=== PATIENT | male | born 1970 | race Caucasian/White ===

== ENCOUNTER 2022-11-29 12:01 | Inpatient (IN) ==
[2022-11-29] MEDS ORDERED: SODIUM CHLORIDE 0.9% 1000ML 1,000 ML IV ONE ×2 (13:18→15:45)
--- NOTE | 2022-11-29 13:34 | Emergency Department Note ---
ED Provider Note History of Present Illness Chief Complaint: GI Assessment Stated Complaint: STOMACH TUBE NOT WORKING Time Seen by Provider: 11/29/22 13:05 Source: patient Mode of arrival: ambulatory Limitations: no limitations This patient is a 52-year-old male with PMHx of esophageal cancer who presents to the emergency department for evaluation of issues with his G tube. The patient had a G tube placed around 10 days ago due to inability to eat. Family states that since then, he has had a large amount of leakage around the tube. They are concerned that he is not getting any nutrition through the tube. They do report that he had a long admission at [place] after the tube was placed because he was so dehydrated and malnourished. Home Medications Medication Instructions Recorded Confirmed Type mupirocin 2 % topical ointment 1 applic topical TID #22 grams 11/28/22 11/29/22 Rx amoxicillin 600 mg-potassium 0 ml PO UD 11/29/22 11/29/22 History clavulanate 42.9 mg/5 mL oral suspension folic acid 1 mg tablet 1 mg PO DAILY 11/29/22 11/29/22 History oxycodone 5 mg/5 mL oral solution 5 mg PO Q4 PRN mod-severe pain 11/29/22 11/29/22 History thiamine HCl (vitamin B1) 100 mg 100 mg PO DAILY 11/29/22 11/29/22 History tablet Allergies Allergy/AdvReac Type Severity Reaction Status Date / Time No Known Drug Allergies Allergy Verified 11/18/22 06:46 Past Med/Surg History Medical History (Updated 12/05/22 @ 22:18 by Elsy Torres PA-C) Alcoholism pt states he currently is drinking 1 beer per week 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 dye colorist 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 History of asthma A CHILD Mass of hypopharynx Oropharyngeal mass SCC (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 Surgical History (Updated 11/30/22 @ 13:23 by Wilbur Kim DO) Gastrostomy tube in place (11/18/22) p Laparoscopic Assiststed Placement(Not Applicable) - Wiblur Kim DO s Gastrostomy Tube(Not Applicable) - Wilbur Kim DO History of laryngoscopy Direct laryngoscopy with biopsy of pharyngeal lesion History of wisdom tooth extraction Family History Mother Hypertension Diabetes Father Cancer Other No family history of adverse response to anesthesia No significant family history Social History Smoking Status: Former smoker Tobacco Type: Cigarettes packs per day: 1; Second Hand Exposure: No; Hx Alcohol Use: No Hx Substance Use: No Preferred Language: Yoruba Communication Ability: Effective Visual Impairment: No Limitations Obstetrics Gyn Required: No Beliefs That Will Affect Care: None marital status: Single Current Living Situation: Family Current Living Situation Comment: WITH MOTHER current occupational status: unemployed How many Children do You have: 0 Other Information That Helps Us Care for You: No Feels Safe at Home: Yes Safety Concerns: Feels Safe At This Time during the past year weight has: decreased > 10 lbs Assistive Devices: None Physical Exam Vital Signs Vital Signs - 24 hr 11/29/22 23:15 11/29/22 23:39 11/30/22 03:11 Temperature 37 C 36.9 C Temperature Source Oral Oral Pulse Rate Pulse Rate [Apical] 89 96 H Respiratory Rate 18 18 Respiratory Depth Normal Blood Pressure [Left Arm] 128/75 130/77 Blood Pressure Mean [Left Arm] 92 94 Blood Pressure Position [Left Arm] Sitting Lying Pulse Oximetry 99 100 Oxygen Delivery Method Room Air Room Air EWS Level of Consciousness - Last Result Spontaneously Alert EWS Temperature - Last Result 37 EWS Respiratory Rate - Last Result 18 EWS Oxygen Saturation - Last Result 99 EWS Oxygen in Use - Last Result No EWS Lactate - Last Result 0.9 EWS Score 0 EWS Clinical Risk Low Risk 11/30/22 03:17 11/30/22 07:13 11/30/22 08:05 Temperature 37.1 C Temperature Source Oral Pulse Rate 81 Pulse Rate [Apical] 95 H Respiratory Rate 20 Respiratory Depth Blood Pressure [Left Arm] 134/79 Blood Pressure Mean [Left Arm] 97 Blood Pressure Position [Left Arm] Pulse Oximetry 97 Oxygen Delivery Method Room Air EWS Level of Consciousness - Last Result Spontaneously Alert EWS Temperature - Last Result 36.9 EWS Respiratory Rate - Last Result 18 EWS Oxygen Saturation - Last Result 100 EWS Oxygen in Use - Last Result No EWS Lactate - Last Result 0.9 EWS Score 1 EWS Clinical Risk Low Risk 11/30/22 08:05 Temperature Temperature Source Pulse Rate Pulse Rate [Apical] Respiratory Rate Respiratory Depth Blood Pressure [Left Arm] Blood Pressure Mean [Left Arm] Blood Pressure Position [Left Arm] Pulse Oximetry Oxygen Delivery Method EWS Level of Consciousness - Last Result Spontaneously Alert EWS Temperature - Last Result 37.1 EWS Respiratory Rate - Last Result 20 EWS Oxygen Saturation - Last Result 97 EWS Oxygen in Use - Last Result No EWS Lactate - Last Result 0.9 EWS Score 1 EWS Clinical Risk Low Risk VITALS: Vitals are noted on the nurse's note and reviewed by myself. GENERAL: This is a 52-year-old male chronically ill and malnourished appearing. SKIN: Erythematous rash present on the abdomen surrounding the G-tube. MOUTH: Mucous membranes dry. HEART: Regular rate and rhythm without murmurs gallops or rubs. LUNGS: Clear to auscultation bilaterally without wheezes, rales or rhonchi. ABDOMEN: G-tube in place over the upper abdomen. There is some leakage of brownish fluid surrounding the tube NEURO: Patient was alert and oriented to person place and time. Course Administered Medications Betamethasone/Clotrimazole (Clotrimazole/Betamethasone Cr 15 Gm Tube) 1 appln EXT DAILY [facility] Stop: 12/30/22 13:44 Last Admin: 12/05/22 08:08 Dose: 1 appln Documented By: Admin: 12/04/22 08:47 Dose: 1 appln Documented By: Admin: 12/03/22 10:26 Dose: 1 appln Documented By: Admin: 12/02/22 08:55 Dose: 1 appln Documented By: Admin: 12/01/22 09:30 Dose: 1 appln Documented By: Admin: 11/30/22 15:22 Dose: 1 appln Documented By: CORNELIUS Enoxaparin Sodium (Enoxaparin Inj 40 Mg/0.4 Ml Syr) 40 mg SQ Q24H [facility] Stop: 12/29/22 20:59 Last Admin: 12/05/22 21:24 Dose: 40 mg Documented By: Admin: 12/04/22 20:08 Dose: 40 mg Documented By: Admin: 12/03/22 21:11 Dose: 40 mg Documented By: Admin: 12/02/22 20:45 Dose: 40 mg Documented By: Admin: 12/01/22 19:46 Dose: 40 mg Documented By: Admin: 11/30/22 21:04 Dose: 40 mg Documented By: Admin: 11/29/22 21:52 Dose: 40 mg Documented By: QG Piperacillin Sod/Tazobactam (Sod 3.375 gm/ Dextrose) 115 mls @ 28.75 mls/hr IV Q8H [facility]; Protocol Stop: 12/09/22 01:59 Last Infusion: 12/05/22 21:20 Dose: 0 mls/hr Documented By: Admin: 12/05/22 18:00 Dose: 28.8 mls/hr Documented By: Infusion: 12/05/22 13:38 Dose: 0 mls/hr Documented By: Admin: 12/05/22 09:36 Dose: 28.8 mls/hr Documented By: Infusion: 12/05/22 06:19 Dose: 0 mls/hr Documented By: [facility] Admin: 12/05/22 02:22 Dose: 28.8 mls/hr Documented By: [facility] Infusion: 12/04/22 21:36 Dose: 0 mls/hr Documented By: [facility] Admin: 12/04/22 17:43 Dose: 28.8 mls/hr Documented By: Infusion: 12/04/22 13:27 Dose: 0 mls/hr Documented By: Admin: 12/04/22 09:17 Dose: 28.8 mls/hr Documented By: Infusion: 12/04/22 06:16 Dose: 0 mls/hr Documented By: Admin: 12/04/22 02:27 Dose: 28.8 mls/hr Documented By: Infusion: 12/03/22 23:12 Dose: 0 mls/hr Documented By: Admin: 12/03/22 19:04 Dose: 28.8 mls/hr Documented By: Infusion: 12/03/22 14:25 Dose: 0 mls/hr Documented By: Admin: 12/03/22 10:25 Dose: 28.8 mls/hr Documented By: Infusion: 12/03/22 05:26 Dose: 0 mls/hr Documented By: Admin: 12/03/22 01:26 Dose: 28.8 mls/hr Documented By: Infusion: 12/02/22 22:23 Dose: 0 mls/hr Documented By: Admin: 12/02/22 18:06 Dose: 28.8 mls/hr Documented By: Infusion: 12/02/22 15:52 Dose: 0 mls/hr Documented By: Admin: 12/02/22 11:14 Dose: 28.8 mls/hr Documented By: Infusion: 12/02/22 03:40 Dose: 0 mls/hr Documented By: Admin: 12/01/22 22:52 Dose: 28.8 mls/hr Documented By: JESÚS Lansoprazole (Lansoprazole 30 Mg Soltab) 30 mg PEG DAILY [facility] Stop: 01/03/23 08:59 Last Admin: 12/05/22 08:08 Dose: 30 mg Documented By: Admin: 12/04/22 08:48 Dose: 30 mg Documented By: ALICIA Lorazepam (Lorazepam 2 Mg/1 Ml Vial) 0.5 mg IV Q6H PRN PRN Reason: Anxiety/Agitation Stop: 01/04/23 15:54 Last Admin: 12/05/22 16:57 Dose: 0.5 mg Documented By: ALICIA Morphine Sulfate (Morphine Sulfate 2 Mg/Ml Carp) 1 mg IV Q4H PRN PRN Reason: moderate to severe pain Stop: 12/13/22 20:32 Last Admin: 12/05/22 12:22 Dose: 1 mg Documented By: Admin: 12/05/22 08:22 Dose: 1 mg Documented By: Admin: 12/03/22 21:17 Dose: 1 mg Documented By: Admin: 12/03/22 05:26 Dose: 1 mg Documented By: Admin: 12/03/22 01:31 Dose: 1 mg Documented By: Admin: 12/01/22 22:46 Dose: 1 mg Documented By: Admin: 12/01/22 17:20 Dose: 1 mg Documented By: Admin: 12/01/22 06:25 Dose: 1 mg Documented By: Admin: 11/30/22 21:04 Dose: 1 mg Documented By: Admin: 11/30/22 15:30 Dose: 1 mg Documented By: Admin: 11/30/22 11:33 Dose: 1 mg Documented By: CORNELIUS Nutritional Formula (Nutren Liqd 2.0 1,000 Ml Bag) 1,000 ml PEG 080 0,1200,1600,2000 [facility]; Protocol Stop: 12/30/22 16:59 Last Admin: 12/05/22 20:16 Dose: 1,000 ml Documented By: Admin: 12/05/22 16:11 Dose: 1,000 ml Documented By: Admin: 12/05/22 12:50 Dose: 1,000 ml Documented By: Admin: 12/05/22 08:07 Dose: 1,000 ml Documented By: Admin: 12/04/22 20:09 Dose: 1,000 ml Documented By: Admin: 12/04/22 16:35 Dose: 1,000 ml Documented By: Admin: 12/04/22 12:34 Dose: 1,000 ml Documented By: KGTrina Admin: 12/04/22 08:47 Dose: 1,000 ml Documented By: Admin: 12/03/22 21:11 Dose: 1,000 ml Documented By: Admin: 12/03/22 17:04 Dose: 1,000 ml Documented By: Admin: 12/03/22 13:03 Dose: 1,000 ml Documented By: Admin: 12/03/22 08:28 Dose: 1,000 ml Documented By: Admin: 12/02/22 21:24 Dose: 1,000 ml Documented By: Admin: 12/02/22 16:30 Dose: 1,000 ml Documented By: Admin: 12/02/22 12:39 Dose: 1,000 ml Documented By: Admin: 12/02/22 07:49 Dose: 1,000 ml Documented By: Admin: 12/01/22 19:45 Dose: 1,000 ml Documented By: Admin: 12/01/22 16:07 Dose: 1,000 ml Documented By: Admin: 12/01/22 12:43 Dose: 1,000 ml Documented By: Admin: 12/01/22 09:30 Dose: 1,000 ml Documented By: Admin: 11/30/22 20:00 Dose: 1,000 ml Documented By: Admin: 11/30/22 17:34 Dose: 1,000 ml Documented By: CORNELIUS Potassium Chloride (Potassium Chloride 20 Meq/15 Ml Udc) 40 meq PO BID [facility] Stop: 01/02/23 20:59 Last Admin: 12/05/22 21:28 Dose: 40 meq Documented By: Admin: 12/05/22 08:08 Dose: 40 meq Documented By: Admin: 12/04/22 20:08 Dose: 40 meq Documented By: Admin: 12/04/22 08:48 Dose: 40 meq Documented By: Admin: 12/03/22 21:10 Dose: Not Given Documented By: [facility] Sterile Water (Tube Feeding Water Flush) 100 ml PEG Q4H [facility] Stop: 12/30/22 16:59 Last Admin: 12/05/22 21:23 Dose: 100 ml Documented By: Admin: 12/05/22 16:12 Dose: 100 ml Documented By: Admin: 12/05/22 13:02 Dose: 100 ml Documented By: Admin: 12/05/22 08:08 Dose: 100 ml Documented By: Admin: 12/05/22 05:35 Dose: 100 ml Documented By: [facility] Admin: 12/05/22 01:33 Dose: 100 ml Documented By: [facility] Admin: 12/04/22 21:14 Dose: 100 ml Documented By: Admin: 12/04/22 16:35 Dose: 100 ml Documented By: Admin: 12/04/22 12:35 Dose: 100 ml Documented By: Admin: 12/04/22 08:48 Dose: 100 ml Documented By: Admin: 12/04/22 03:51 Dose: 100 ml Documented By: Admin: 12/04/22 00:23 Dose: 100 ml Documented By: Admin: 12/03/22 22:10 Dose: 100 ml Documented By: Admin: 12/03/22 17:05 Dose: 100 ml Documented By: Admin: 12/03/22 13:04 Dose: 100 ml Documented By: Admin: 12/03/22 08:28 Dose: 100 ml Documented By: Admin: 12/03/22 04:44 Dose: 100 ml Documented By: Admin: 12/03/22 02:06 Dose: 100 ml Documented By: Admin: 12/02/22 22:04 Dose: 100 ml Documented By: [facility] Admin: 12/02/22 17:30 Dose: 100 ml Documented By: Admin: 12/02/22 14:19 Dose: 100 ml Documented By: Admin: 12/02/22 08:55 Dose: 100 ml Documented By: Admin: 12/02/22 04:38 Dose: 100 ml Documented By: Admin: 12/02/22 00:43 Dose: 100 ml Documented By: Admin: 12/01/22 19:46 Dose: 100 ml Documented By: Admin: 12/01/22 17:17 Dose: 100 ml Documented By: Admin: 12/01/22 14:00 Dose: 100 ml Documented By: Admin: 12/01/22 09:32 Dose: 100 ml Documented By: Admin: 12/01/22 06:25 Dose: 100 ml Documented By: Admin: 12/01/22 01:00 Dose: 100 ml Documented By: Admin: 11/30/22 21:03 Dose: 100 ml Documented By: Admin: 11/30/22 17:34 Dose: 100 ml Documented By: CORNELIUS Thiamine HCl (Thiamine Hcl 100 Mg Tab) 100 mg PO DAILY [facility] Stop: 01/03/23 08:59 Last Admin: 12/05/22 08:08 Dose: 100 mg Documented By: Admin: 12/04/22 08:48 Dose: 100 mg Documented By: ALICIA Discontinued Medications Amiloride HCl (Amiloride Hcl 5 Mg Tab) 5 mg PO DAILY [facility] Stop: 01/04/23 08:59 Last Admin: 12/05/22 09:32 Dose: 5 mg Documented By: ALICIA Sodium Chloride (Nss 1000ml) 1,000 mls @ 999 mls/hr IV .Q1H1M ONE Stop: 11/29/22 14:18 Last Infusion: 11/29/22 15:02 Dose: 0 mls/hr Documented By: Admin: 11/29/22 14:01 Dose: 999 mls/hr Documented By: GERALDINE Sodium Chloride (Nss 1000ml) 1,000 mls @ 999 mls/hr IV .Q1H1M ONE Stop: 11/29/22 16:45 Last Infusion: 11/29/22 17:17 Dose: 0 mls/hr Documented By: Admin: 11/29/22 16:04 Dose: 999 mls/hr Documented By: OL Potassium Chloride (K Arvind / Wtr) 10 meq in 100 mls @ 100 mls/hr IV ONE ONE; Protocol Stop: 11/29/22 16:44 Last Infusion: 11/29/22 17:37 Dose: 0 mls/hr Documented By: Infusion: 11/29/22 16:33 Dose: 50 mls/hr Documented By: Admin: 11/29/22 16:04 Dose: 100 mls/hr Documented By: OL Potassium Chloride/Sodium Chloride (Normal Saline W/20 Meq Kcl) 20 meq in 1,000 mls @ 75 mls/hr IV .[id number] [facility] Stop: 12/29/22 20:59 Last Infusion: 12/02/22 22:30 Dose: 0 mls/hr Documented By: Admin: 12/01/22 22:49 Dose: 75 mls/hr Documented By: Infusion: 12/01/22 22:49 Dose: 75 mls/hr Documented By: Admin: 12/01/22 15:26 Dose: 75 mls/hr Documented By: Infusion: 12/01/22 15:26 Dose: 75 mls/hr Documented By: Admin: 12/01/22 04:01 Dose: 75 mls/hr Documented By: Infusion: 12/01/22 04:01 Dose: 75 mls/hr Documented By: Admin: 11/30/22 21:01 Dose: 75 mls/hr Documented By: Infusion: 11/30/22 21:01 Dose: 0 mls/hr Documented By: Infusion: 11/30/22 10:00 Dose: 0 mls/hr Documented By: Admin: 11/29/22 21:48 Dose: 75 mls/hr Documented By: QG Acetaminophen (Ofirmev) 1,000 mg in 100 mls @ 400 mls/hr IV Q8H PRN PRN Reason: pain or fever Stop: 12/02/22 20:32 Last Infusion: 12/01/22 10:20 Dose: 0 mls/hr Documented By: Admin: 12/01/22 10:01 Dose: 400 mls/hr Documented By: BT Thiamine HCl 100 mg/ Syringe 10 mls @ 2 mls/min IV QAM [facility] Stop: 12/30/22 08:59 Last Admin: 12/03/22 08:27 Dose: 2 mls/min Documented By: Admin: 12/02/22 08:55 Dose: 2 mls/min Documented By: Admin: 12/01/22 09:30 Dose: 2 mls/min Documented By: Admin: 11/30/22 08:45 Dose: 2 mls/min Documented By: CORNELIUS Pantoprazole Sodium 40 mg/ (Syringe) 10 mls @ 5 mls/min IV DAILY@1100 [facility] Stop: 12/29/22 20:59 Last Admin: 12/03/22 11:00 Dose: 5 mls/min Documented By: Admin: 12/02/22 11:14 Dose: 5 mls/min Documented By: Admin: 12/01/22 10:02 Dose: 5 mls/min Documented By: Admin: 11/30/22 11:35 Dose: 5 mls/min Documented By: Admin: 11/29/22 21:51 Dose: 5 mls/min Documented By: QG Potassium Acetate (Potassium Acetate/Nss) 10 meq in 105 mls @ 105 mls/hr IV Q1H [facility] Stop: 11/30/22 08:41 Last Admin: 11/30/22 07:49 Dose: Not Given Documented By: CORNELIUS Potassium Chloride (K Arvind / Wtr) 10 meq in 100 mls @ 100 mls/hr IV Q1H [facility] Stop: 11/30/22 12:44 Last Infusion: 11/30/22 17:02 Dose: 0 mls/hr Documented By: Admin: 11/30/22 15:47 Dose: 100 mls/hr Documented By: Infusion: 11/30/22 15:00 Dose: 100 mls/hr Documented By: Admin: 11/30/22 14:00 Dose: 100 mls/hr Documented By: Infusion: 11/30/22 12:35 Dose: 100 mls/hr Documented By: Admin: 11/30/22 11:35 Dose: 100 mls/hr Documented By: Infusion: 11/30/22 11:02 Dose: 100 mls/hr Documented By: Admin: 11/30/22 10:02 Dose: 100 mls/hr Documented By: CORNELIUS Potassium Phosphate 15 mmol/ (Sodium Chloride) 255 mls @ 88 mls/hr IV TODA Y@1315 ONE Stop: 11/30/22 16:08 Last Infusion: 11/30/22 20:25 Dose: 0 mls/hr Documented By: Admin: 11/30/22 17:02 Dose: 88 mls/hr Documented By: CORNELIUS Piperacillin Sod/Tazobactam (Sod 3.375 gm/ Dextrose) 115 mls @ 230 mls/hr IV NOW ONE; Protocol Stop: 12/01/22 21:29 Last Infusion: 12/02/22 00:50 Dose: 0 mls/hr Documented By: Admin: 12/01/22 22:46 Dose: 230 mls/hr Documented By: JESÚS Potassium Phosphate 21 mmol/ (Sodium Chloride) 507 mls @ 112.667 mls/hr IV NOW ONE Stop: 12/02/22 12:29 Last Infusion: 12/02/22 14:27 Dose: 0 mls/hr Documented By: Admin: 12/02/22 08:54 Dose: 112.7 mls/hr Documented By: LEOPOLDO Magnesium Sulfate/Dextrose (Magnesium Sulfate / D5w) 1 gm in 100 mls @ 50 mls/hr IV Q2H [facility] Stop: 12/03/22 15:14 Last Infusion: 12/03/22 16:35 Dose: 0 mls/hr Documented By: Admin: 12/03/22 14:35 Dose: 50 mls/hr Documented By: Infusion: 12/03/22 14:30 Dose: 0 mls/hr Documented By: Admin: 12/03/22 12:30 Dose: 50 mls/hr Documented By: Infusion: 12/03/22 12:25 Dose: 0 mls/hr Documented By: Admin: 12/03/22 10:25 Dose: 50 mls/hr Documented By: ZACK Magnesium Sulfate/Dextrose (Magnesium Sulfate / D5w) 1 gm in 100 mls @ 50 mls/hr IV Q2H [facility] Stop: 12/03/22 22:29 Last Infusion: 12/04/22 02:23 Dose: 0 mls/hr Documented By: Admin: 12/04/22 00:22 Dose: 50 mls/hr Documented By: Infusion: 12/04/22 00:22 Dose: 50 mls/hr Documented By: Admin: 12/03/22 23:00 Dose: 50 mls/hr Documented By: LJS Potassium Phosphate 15 mmol/ (Dextrose) 255 mls @ 88 mls/hr IV NOW ONE Stop: 12/03/22 21:38 Last Infusion: 12/04/22 00:23 Dose: 0 mls/hr Documented By: Admin: 12/03/22 21:04 Dose: 88 mls/hr Documented By: ACE Potassium Chloride (K Arvind / Wtr) 10 meq in 100 mls @ 100 mls/hr IV Q1H [facility] Stop: 12/04/22 12:59 Last Infusion: 12/04/22 14:07 Dose: 0 mls/hr Documented By: Admin: 12/04/22 13:01 Dose: 100 mls/hr Documented By: Infusion: 12/04/22 13:01 Dose: 100 mls/hr Documented By: Admin: 12/04/22 12:07 Dose: 100 mls/hr Documented By: Infusion: 12/04/22 11:45 Dose: 100 mls/hr Documented By: Admin: 12/04/22 10:45 Dose: 100 mls/hr Documented By: Infusion: 12/04/22 10:17 Dose: 100 mls/hr Documented By: Admin: 12/04/22 09:17 Dose: 100 mls/hr Documented By: ALICIA Magnesium Sulfate/Dextrose (Magnesium Sulfate / D5w) 1 gm in 100 mls @ 50 mls/hr IV Q2H [facility] Stop: 12/05/22 14:44 Last Infusion: 12/05/22 15:43 Dose: 0 mls/hr Documented By: Admin: 12/05/22 13:42 Dose: 50 mls/hr Documented By: Infusion: 12/05/22 13:39 Dose: 50 mls/hr Documented By: Admin: 12/05/22 11:39 Dose: 50 mls/hr Documented By: Infusion: 12/05/22 11:36 Dose: 50 mls/hr Documented By: Admin: 12/05/22 09:36 Dose: 50 mls/hr Documented By: ALICIA Potassium Chloride (K Arvind / Wtr) 10 meq in 100 mls @ 100 mls/hr IV Q1H [facility] Stop: 12/05/22 11:44 Last Infusion: 12/05/22 13:05 Dose: 0 mls/hr Documented By: Admin: 12/05/22 12:05 Dose: 100 mls/hr Documented By: Infusion: 12/05/22 11:47 Dose: 100 mls/hr Documented By: Admin: 12/05/22 10:47 Dose: 100 mls/hr Documented By: Infusion: 12/05/22 10:36 Dose: 100 mls/hr Documented By: Admin: 12/05/22 09:36 Dose: 100 mls/hr Documented By: ALICIA Dexamethasone 6 mg/ Syringe 1.5 mls @ 1 mls/min IV ONE ONE Stop: 12/05/22 18:16 Last Admin: 12/05/22 18:31 Dose: 1 mls/min Documented By: ALICIA Ioversol (Optiray 350 100ml) 84 ml IV ONCE ONE Stop: 11/29/22 23:07 Last Admin: 11/29/22 23:07 Dose: 84 ml Documented By: GRACIELA Ioversol (Optiray 350 100ml) 94 ml IV ONCE ONE Stop: 12/01/22 09:18 Last Admin: 12/01/22 09:18 Dose: 94 ml Documented By: NOE Ioversol (Optiray 350 100ml) 87 ml IV ONCE ONE Stop: 12/05/22 17:38 Last Admin: 12/05/22 17:38 Dose: 87 ml Documented By: KATTY Miconazole Nitrate (Miconazole Nitrate Powder 85 Gm) 1 appln EXT BID [facility] Stop: 12/29/22 20:59 Last Admin: 11/30/22 08:45 Dose: 1 appln Documented By: Admin: 11/29/22 21:52 Dose: 1 appln Documented By: QG Olanzapine (Olanzapine Zydis 5 Mg Orally Dis. Tab) 5 mg PO ONE ONE Stop: 12/05/22 15:58 Last Admin: 12/05/22 16:12 Dose: 5 mg Documented By: ALICIA Potassium Chloride (Potassium Chloride 20 Meq/15 Ml Udc) 40 meq GT NOW STA Stop: 11/29/22 15:46 Last Admin: 11/29/22 17:21 Dose: Not Given Documented By: OL Potassium Chloride (Potassium Chloride 20 Meq/15 Ml Udc) 40 meq PO NOW ST[facility] Stop: 12/03/22 18:30 Last Admin: 12/03/22 21:10 Dose: Not Given Documented By: ACE Medical Decision Making Differential Diagnosis Infection, dehydration, metabolic abnormality, hypo/hyperglycemia, electrolyte disturbance, anemia, hypoxia, cardiac sources, intracerebral event, toxicologic, neurologic, as well as other pathologies. Home Medications was personally reviewed by me Laboratory Data Attestation: I reviewed the patient's lab results. 11/30/22 05:36 11/30/22 05:36 Lab Results 11/29/22 11/29/22 11/29/22 Range/Units 13:42 13:42 16:34 WBC 15.74 H (4.8-10.8) K/ul RBC 3.21 L (4.70-6.10) M/uL Hgb 10.3 L (14.0-18.0) g/dl Hct 29.9 L (42.0-52.0) % MCV 93.1 (80.0-100.0) fL MCH 32.1 (25.0-34.0) pg MCHC 34.4 (32.0-36.0) g/dL RDW Std Deviation 45.6 (36.4-46.3) fL RDW Coeff of Cony 13.4 (11.5-14.5) % Plt Count 509 H (130-400) K/uL MPV 9.9 (9.4-12.4) fL Immature Gran % (Auto) 0.6 % Neut % (Auto) 79.7 % Lymph % (Auto) 7.7 % Wharton % (Auto) 11.4 % Eos % (Auto) 0.3 % Baso % (Auto) 0.3 % Neut # (Auto) 12.54 H (1.40-6.50) K/uL Lymph # (Auto) 1.21 (1.2-3.4) K/uL Wharton # (Auto) 1.80 H (0.11-0.59) K/uL Eos # (Auto) 0.04 (0-0.50) K/uL Baso # (Auto) 0.05 (0-0.2) K/uL Immature Gran # (Auto) 0.10 (0.01-0.20) K/uL Sodium 138 (136-145) mmol/L Potassium 2.9 L (3.5-5.1) mmol/L Chloride 95 L (98-107) mmol/L Carbon Dioxide 32 (21-32) mmol/L Anion Gap 11 (3-11) BUN 10 (6-23) mg/dl Creatinine 0.52 L (0.6-1.4) mg/dl Est Cr Clr Drug Dosing 138.3 ml/min Est GFR ( Amer) 140.1 ml/min Est GFR (Non-Af Amer) 120.9 ml/min BUN/Creatinine Ratio 19.2 (10-20) Glucose 111 H (70-99(Fasting)) mg/dl Lactate (0.4-2.0) mmol/L Calcium 10.2 (8.6-10.3) mg/dl Phosphorus 2.7 Cancelled (2.5-4.9) mg/dl Magnesium 1.8 (1.7-2.4) mg/dl Iron (35-175) mcg/dl TIBC (250-450) mcg/dl Unsaturated IBC (155-355) mcg/dl Transferrin % Sat (20-50) % Ferritin (8-388) ng/ml Total Bilirubin 0.7 (0.2-1.0) mg/dl AST 19 (13-39) U/L ALT 11 (7-52) U/L Alkaline Phosphatase 50 (34-104) U/L Total Creatine Kinase (30-223) U/L Total Protein 6.8 (6.0-8.3) gm/dl Albumin 3.3 L (3.4-5.0) gm/dl Globulin 3.5 (2.5-4.0) gm/dl Albumin/Globulin Ratio 0.9 (0.9-2) Vitamin B12 (180-914) pg/ml 25-OH Vitamin D Total (30-100) ng/ml Folate (>5.38) ng/ml Procalcitonin (0-0.5) ng/ml Urine Color Urine Appearance (Clear) Urine pH (4.5-7.5) Ur Specific [place] (1.000-1.030) Urine Protein (Negative) Urine Glucose (UA) (Negative) Urine Ketones (Negative) Urine Blood (Negative) Urine Nitrite (Negative) Urine Bilirubin (Negative) Urine Urobilinogen (Negative) Ur Leukocyte Esterase (Negative) Urine RBC (0-4) /hpf Urine WBC (0-5) /hpf Ur Epithelial Cells (0-5) /lpf Urine Bacteria (Negative) Hyaline Casts (0-5) /lpf SARS-CoV-2, RNA, NAAT (NEGATIVE) 11/29/22 11/29/22 11/29/22 Range/Units 16:50 17:08 17:08 WBC (4.8-10.8) K/ul RBC (4.70-6.10) M/uL Hgb (14.0-18.0) g/dl Hct (42.0-52.0) % MCV (80.0-100.0) fL MCH (25.0-34.0) pg MCHC (32.0-36.0) g/dL RDW Std Deviation (36.4-46.3) fL RDW Coeff of [place] (11.5-14.5) % Plt Count (130-400) K/uL MPV (9.4-12.4) fL Immature Gran % (Auto) % Neut % (Auto) % Lymph % (Auto) % [place] % (Auto) % Eos % (Auto) % Baso % (Auto) % Neut # (Auto) (1.40-6.50) K/uL Lymph # (Auto) (1.2-3.4) K/uL [place] # (Auto) (0.11-0.59) K/uL Eos # (Auto) (0-0.50) K/uL Baso # (Auto) (0-0.2) K/uL Immature Gran # (Auto) (0.01-0.20) K/uL Sodium (136-145) mmol/L Potassium (3.5-5.1) mmol/L Chloride (98-107) mmol/L Carbon Dioxide (21-32) mmol/L Anion Gap (3-11) BUN (6-23) mg/dl Creatinine (0.6-1.4) mg/dl Est Cr Clr Drug Dosing ml/min Est GFR ( Amer) ml/min Est GFR (Non-Af Amer) ml/min BUN/Creatinine Ratio (10-20) Glucose (70-99(Fasting)) mg/dl Lactate (0.4-2.0) mmol/L Calcium (8.6-10.3) mg/dl Phosphorus (2.5-4.9) mg/dl Magnesium (1.7-2.4) mg/dl Iron (35-175) mcg/dl TIBC (250-450) mcg/dl Unsaturated IBC (155-355) mcg/dl Transferrin % Sat (20-50) % Ferritin (8-388) ng/ml Total Bilirubin (0.2-1.0) mg/dl AST (13-39) U/L ALT (7-52) U/L Alkaline Phosphatase (34-104) U/L Total Creatine Kinase (30-223) U/L Total Protein (6.0-8.3) gm/dl Albumin (3.4-5.0) gm/dl Globulin (2.5-4.0) gm/dl Albumin/Globulin Ratio (0.9-2) Vitamin B12 (180-914) pg/ml 25-OH Vitamin D Total 11.5 L (30-100) ng/ml Folate (>5.38) ng/ml Procalcitonin 1.03 H (0-0.5) ng/ml Urine Color Urine Appearance (Clear) Urine pH (4.5-7.5) Ur Specific [place] (1.000-1.030) Urine Protein (Negative) Urine Glucose (UA) (Negative) Urine Ketones (Negative) Urine Blood (Negative) Urine Nitrite (Negative) Urine Bilirubin (Negative) Urine Urobilinogen (Negative) Ur Leukocyte Esterase (Negative) Urine RBC (0-4) /hpf Urine WBC (0-5) /hpf Ur Epithelial Cells (0-5) /lpf Urine Bacteria (Negative) Hyaline Casts (0-5) /lpf SARS-CoV-2, RNA, NAAT NEGATIVE (NEGATIVE) 11/29/22 11/29/22 11/30/22 Range/Units 18:39 18:39 02:13 WBC (4.8-10.8) K/ul RBC (4.70-6.10) M/uL Hgb (14.0-18.0) g/dl Hct (42.0-52.0) % MCV (80.0-100.0) fL MCH (25.0-34.0) pg MCHC (32.0-36.0) g/dL RDW Std Deviation (36.4-46.3) fL RDW Coeff of Cony (11.5-14.5) % Plt Count (130-400) K/uL MPV (9.4-12.4) fL Immature Gran % (Auto) % Neut % (Auto) % Lymph % (Auto) % [place] % (Auto) % Eos % (Auto) % Baso % (Auto) % Neut # (Auto) (1.40-6.50) K/uL Lymph # (Auto) (1.2-3.4) K/uL [place] # (Auto) (0.11-0.59) K/uL Eos # (Auto) (0-0.50) K/uL Baso # (Auto) (0-0.2) K/uL Immature Gran # (Auto) (0.01-0.20) K/uL Sodium (136-145) mmol/L Potassium (3.5-5.1) mmol/L Chloride (98-107) mmol/L Carbon Dioxide (21-32) mmol/L Anion Gap (3-11) BUN (6-23) mg/dl Creatinine (0.6-1.4) mg/dl Est Cr Clr Drug Dosing ml/min Est GFR ( Amer) ml/min Est GFR (Non-Af Amer) ml/min BUN/Creatinine Ratio (10-20) Glucose (70-99(Fasting)) mg/dl Lactate 0.9 (0.4-2.0) mmol/L Calcium (8.6-10.3) mg/dl Phosphorus (2.5-4.9) mg/dl Magnesium (1.7-2.4) mg/dl Iron (35-175) mcg/dl TIBC (250-450) mcg/dl Unsaturated IBC (155-355) mcg/dl Transferrin % Sat (20-50) % Ferritin (8-388) ng/ml Total Bilirubin (0.2-1.0) mg/dl AST (13-39) U/L ALT (7-52) U/L Alkaline Phosphatase (34-104) U/L Total Creatine Kinase 11 L (30-223) U/L Total Protein (6.0-8.3) gm/dl Albumin (3.4-5.0) gm/dl Globulin (2.5-4.0) gm/dl Albumin/Globulin Ratio (0.9-2) Vitamin B12 (180-914) pg/ml 25-OH Vitamin D Total (30-100) ng/ml Folate (>5.38) ng/ml Procalcitonin (0-0.5) ng/ml Urine Color Yellow Urine Appearance Cloudy A (Clear) Urine pH 7.5 (4.5-7.5) Ur Specific [place] 1.015 (1.000-1.030) Urine Protein 3+ H (Negative) Urine Glucose (UA) Negative (Negative) Urine Ketones 3+ H (Negative) Urine Blood 3+ H (Negative) Urine Nitrite Negative (Negative) Urine Bilirubin Negative (Negative) Urine Urobilinogen Negative (Negative) Ur Leukocyte Esterase 3+ H (Negative) Urine RBC 10-30 H (0-4) /hpf Urine WBC >30 H (0-5) /hpf Ur Epithelial Cells 5-10 H (0-5) /lpf Urine Bacteria 2+ H (Negative) Hyaline Casts 0-5 (0-5) /lpf SARS-CoV-2, RNA, NAAT (NEGATIVE) 11/30/22 11/30/22 11/30/22 Range/Units 05:36 05:36 05:36 WBC 12.30 H (4.8-10.8) K/ul RBC 2.79 L (4.70-6.10) M/uL Hgb 9.0 L (14.0-18.0) g/dl Hct 26.6 L (42.0-52.0) % MCV 95.3 (80.0-100.0) fL MCH 32.3 (25.0-34.0) pg MCHC 33.8 (32.0-36.0) g/dL RDW Std Deviation 46.4 H (36.4-46.3) fL RDW Coeff of Cony 13.4 (11.5-14.5) % Plt Count 484 H (130-400) K/uL MPV 9.3 L (9.4-12.4) fL Immature Gran % (Auto) 0.6 % Neut % (Auto) 80.7 % Lymph % (Auto) 8.2 % [place] % (Auto) 9.5 % Eos % (Auto) 0.7 % Baso % (Auto) 0.3 % Neut # (Auto) 9.93 H (1.40-6.50) K/uL Lymph # (Auto) 1.01 L (1.2-3.4) K/uL [place] # (Auto) 1.17 H (0.11-0.59) K/uL Eos # (Auto) 0.08 (0-0.50) K/uL Baso # (Auto) 0.04 (0-0.2) K/uL Immature Gran # (Auto) 0.07 (0.01-0.20) K/uL Sodium 141 (136-145) mmol/L Potassium 2.9 L (3.5-5.1) mmol/L Chloride 102 (98-107) mmol/L Carbon Dioxide 30 (21-32) mmol/L Anion Gap 9 (3-11) BUN 8 (6-23) mg/dl Creatinine 0.45 L (0.6-1.4) mg/dl Est Cr Clr Drug Dosing 156.3 ml/min Est GFR ( Amer) 148.7 ml/min Est GFR (Non-Af Amer) 128.3 ml/min BUN/Creatinine Ratio 17.8 (10-20) Glucose 95 (70-99(Fasting)) mg/dl Lactate (0.4-2.0) mmol/L Calcium 9.7 (8.6-10.3) mg/dl Phosphorus 2.4 L (2.5-4.9) mg/dl Magnesium 1.7 (1.7-2.4) mg/dl Iron 25 L (35-175) mcg/dl TIBC 184 L (250-450) mcg/dl Unsaturated IBC 159 (155-355) mcg/dl Transferrin % Sat 14 L (20-50) % Ferritin 1255.2 H (8-388) ng/ml Total Bilirubin 0.6 (0.2-1.0) mg/dl AST 19 (13-39) U/L ALT 10 (7-52) U/L Alkaline Phosphatase 40 (34-104) U/L Total Creatine Kinase (30-223) U/L Total Protein 5.9 L (6.0-8.3) gm/dl Albumin 2.8 L (3.4-5.0) gm/dl Globulin 3.1 (2.5-4.0) gm/dl Albumin/Globulin Ratio 0.9 (0.9-2) Vitamin B12 348 (180-914) pg/ml 25-OH Vitamin D Total (30-100) ng/ml Folate 15.00 (>5.38) ng/ml Procalcitonin (0-0.5) ng/ml Urine Color Urine Appearance (Clear) Urine pH (4.5-7.5) Ur Specific [place] (1.000-1.030) Urine Protein (Negative) Urine Glucose (UA) (Negative) Urine Ketones (Negative) Urine Blood (Negative) Urine Nitrite (Negative) Urine Bilirubin (Negative) Urine Urobilinogen (Negative) Ur Leukocyte Esterase (Negative) Urine RBC (0-4) /hpf Urine WBC (0-5) /hpf Ur Epithelial Cells (0-5) /lpf Urine Bacteria (Negative) Hyaline Casts (0-5) /lpf SARS-CoV-2, RNA, NAAT (NEGATIVE) MDM Narrative This patient is a 52-year-old male who presents to the emergency department for evaluation of problems with his J-tube. I initially consulted general surgery who were able to evaluate the J-tube and tightened it to prevent leaking. Labs were performed and were significant for hypokalemia. Potassium supplementation was ordered, however when I reevaluated the patient they were having further issues with the J-tube. At this time I spoke with the patient and family and they felt most comfortable coming into the hospital for further evaluation of the J-tube and IV hydration. I discussed with the case with the hospitalist, incanor ho agreed to evaluate the patient for further care. Impression Feeding tube dysfunction, Hypokalemia Discharge Plan Visit Data Chief Complaint: GI Assessment Stated Complaint: STOMACH TUBE NOT WORKING ED Provider: Fermin Alcantar ED Midlevel Provider: Elsy Torres Discharge Problem: Feeding tube dysfunction, Hypokalemia Patient Disposition: Admitted As Inpatient Discharge Instructions Interventions: ED Discharge Assessment Last Done: 11/29/22 20:28
--- NOTE | 2022-11-29 14:25 | Surgery Consultation ---
Date of Consultation November 29, 2022 Assessment & Plan (1) Leaking percutaneous endoscopic gastrostomy (PEG) tube: This is a 52yM with a PMH of ENT cancer who is recently s/p laparoscopic gastrostomy tube placement with Dr. Kim on 11/18/22 who presents to the [facility] ED on 11/29/22 with complaints of leakage around g-tube site that started Tuesday evening. He was scheduled for follow up today, however there was a mix- up with the family/patient who thought it was for tomorrow. Therefore, due to ongoing drainage they represented to the ER today for answers. On examination patient's abdomen has areas of superficial skin excoriation/redness in a circumferential pattern starting at the superior portion of G tube that extends down to the supra-pubic region. The g-tube bumper was noted to be slightly loose with a brown drainage surrounding tube. The bumper was tightened about 1cm with the outermost portion of the rubber bumper marked at 6cm. I then flushed ~30cc of normal saline in the tube without difficulty and no leakage was noted. I educated the family on how to tighten the bumper and they expressed understanding. They were satisfied noting that there was no leakage after instilling the saline thereafter. Discussed case with Dr. Kim who would like to see the patient either tomorrow or tuesday- our office will reach out to him to schedule. Continue to cleanse area around the g-tube site/skin to keep clean. Will ask ER to prescribe combined steroid/antifungal tropical lotrisone to areas of redness. Will need ongoing assistance with home health care at home. Told family they are always welcome to call the office with questions/concerns if it is something we can try to address either by phone or in the office to help them avoid visits to the ER. History of Present Illness History of Present Illness This is a 52yM with a PMH of ENT cancer who is recently s/p laparoscopic gastrostomy tube placement with Dr. Kim on 11/18/22 who presents to the [facility] ED on 11/29/22 with complaints of leakage around g-tube site. Patient and family said this started Tuesday evening. They did come into the ER around that time and cleansing around the tube was recommend along with close follow up in surgery clinic. He was scheduled for follow up today, however there was a mix-up with the family patient who thought it was for tomorrow. Therefore, due to ongoing drainage they represented to the ER today for answers. The family states that as soon as TEN is infused it immediately leaks out. There is no actual problem with flushing the tube, such as clogs, etc. He denies pain, nausea/vomiting, fevers/chills, or change in bowel habits. Has pain and tenderness superficially of the skin . He had a recent admission to [facility] where the family said he was treated for malnutrition. They do have a home RN, but since the surgery only came out 1x thus far because was admitted to [facility] for majority of the time since surgery. TEN has been ordered for night time continuous feeds. There is some miscommunication it seems with who was suppose to prescribed the patient's TEN from the start. Allergies Allergy/AdvReac Type Severity Reaction Status Date / Time No Known Drug Allergies Allergy Verified 11/18/22 06:46 Home Medications Medication Instructions Recorded Confirmed Type mupirocin 2 % topical ointment 1 applic topical TID #22 grams 11/28/22 11/29/22 Rx amoxicillin 600 mg-potassium 0 ml PO UD 11/29/22 11/29/22 History clavulanate 42.9 mg/5 mL oral suspension folic acid 1 mg tablet 1 mg PO DAILY 11/29/22 11/29/22 History oxycodone 5 mg/5 mL oral solution 5 mg PO Q4 PRN mod-severe pain 11/29/22 11/29/22 History thiamine HCl (vitamin B1) 100 mg 100 mg PO DAILY 11/29/22 11/29/22 History tablet Patient History Medical History Alcoholism pt states he currently is drinking 1 beer per week 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 Kim, DO History of laryngoscopy Direct laryngoscopy with biopsy of pharyngeal lesion History of wisdom tooth extraction Family History Mother Hypertension Diabetes Father Cancer Other No family history of adverse response to anesthesia No significant family history Social History Smoking Status: Former smoker Tobacco Type: Cigarettes packs per day: 1; Second Hand Exposure: No; Hx Alcohol Use: No Hx Substance Use: No Preferred Language: Indonesian Communication Ability: Effective Visual Impairment: No Limitations Respiratory Therapy Technician Required: No Beliefs That Will Affect Care: None marital status: Single Current Living Situation: Family Current Living Situation Comment: WITH MOTHER current occupational status: unemployed How many Children do You have: 0 Other Information That Helps Us Care for You: No Feels Safe at Home: Yes Safety Concerns: Feels Safe At This Time during the past year weight has: decreased > 10 lbs Assistive Devices: None Review of Systems Constitutional: no fever and no chills Cardiovascular: no chest pain Gastrointestinal: no abdominal pain, no nausea, no vomiting and no change in bowel habits leakage around G tube with skin redness Physical Exam Physical Exam: awake Respiratory: normal respiratory effort Gastrointestinal (Abdomen): Inspection/Auscultation: abdomen not distended Percussion/Palpation: + abdomen tender (superficial skin discomfort to areas of excoriation) and abdomen soft G tube in place with surrounding dark brown leakage, area of skin excoriation/erythema on anterior abdomen surrounding superior portion of g tube and in a circular fashion down to supra-pubic region Results & Data Vital Signs (Past 12 Hours) Vital Signs Temp Pulse Resp BP Pulse Ox O2 Del Method 11/29/22 12:06 36.8 C 107 H 20 98/47 L 98 Room Air PG Care Time/CCT Total # of Minutes Spent Total Time Spent with Patient: Total time spent is greater than 50% in coordination of care (as documented) at patient's floor/unit and/or counseling patient: Coding Level of Care Code None Diagnoses Leaking percutaneous endoscopic gastrostomy (PEG) tube K94.23
[2022-11-29 14:48] LABS: Basophils # (auto) 0.05 K/uL (0-0.2); Basophils % (auto) 0.3 %; Eosinophils # (auto) 0.04 K/uL (0-0.50); Eosinophils % (auto) 0.3 %; Hematocrit (blood only) 29.9 % (42.0-52.0); Hemoglobin 10.3 g/dl (14.0-18.0); Immature Granulocytes % (auto) 0.6 %; Lymphocytes # (auto) 1.21 K/uL (1.2-3.4); Lymphocytes % (auto) 7.7 %; Mean Corpuscular Hemoglobin 32.1 pg (25.0-34.0); Mean Corpuscular Hgb Conc 34.4 g/dL (32.0-36.0); Mean Corpuscular Volume 93.1 fL (80.0-100.0); Mean Platelet Volume 9.9 fL (9.4-12.4); Monocytes % (auto) 11.4 %; Neutrophils # (auto) 12.54 K/uL (1.40-6.50); Neutrophils % (auto) 79.7 %; Platelet Count 509 K/uL (130-400); RDW Coefficient of Variation 13.4 % (11.5-14.5); RDW Standard Deviation 45.6 fL (36.4-46.3); Red Blood Count 3.21 M/uL (4.70-6.10); White Blood Count 15.74 K/ul (4.8-10.8)
[2022-11-29 14:49] LABS: Albumin Globulin Ratio 0.9 (0.9-2); Albumin Level 3.3 gm/dl (3.4-5.0); BUN Creatinine Ratio 19.2 (10-20); Bilirubin,Total 0.7 mg/dl (0.2-1.0); Calcium 10.2 mg/dl (8.6-10.3); Creatinine Clr Calc Pharmacy 138.3 ml/min; Est GFR (African American) 140.1 ml/min; Est GFR (Non-African American) 120.9 ml/min; Globulin 3.5 gm/dl (2.5-4.0); Magnesium 1.8 mg/dl (1.7-2.4); Potassium 2.9 mmol/L (3.5-5.1); Total Protein 6.8 gm/dl (6.0-8.3)
[2022-11-29] MEDS ORDERED: POTASSIUM CHLORIDE / WTR 10 MEQ/100 ML PLCT IV ONE (15:45)
[2022-11-29] MEDS ORDERED: POTASSIUM CHLORIDE 20 MEQ/15 ML UDC GT STA (15:45)
--- NOTE | 2022-11-29 16:50 | History & Physical Report ---
Date of Service November 29, 2022 Assessment & Plan (1) Squamous cell carcinoma of hypopharynx: Plan: recent diagnosis, now w/ G-tube but issues w/ placement, dehydration and dysphagia from mass w/ limited ability for PO intake, recent 10 day inpatient stay [facility] [place] for dehydration and presented again dehydrated Request records from [facility] [place] for recent admission Admit to monitored bed, HIGH RISK FOR REFEEDING SYNDROME and K 2.9 on admission --> checking phos/mag --> mag 1.8, phos 2.7 nutrition on consult for TPN in meantime if any ongoing issues w/ G-tube holding off on using G-tube at present given current issues Topical Lotrimin BID recommended by general surgery for surrounding erythema to G-tube -- may need to require systemic antifungals pending repeat eval Also placed consult for wound RN, also possible start of pressure ulcer to buttocks For dehydration/abdominal pain Place on IVF w/ 20meq K for dehydration, electrolyte replacement as needed. K 2.9 on admission, given 40meq through G-tube, 10meq IV. Check EKG, also checking CK as well Added protonix IVP daily for GI prophylaxis/reflux Antiemetics/pain control prn Will check blood cultures, urine. Holding off on abx at present & will await scans as ordered below for eval met disease Checking procal given WBC 15k, iron/b12/folate in AM given anemia w/ hgb 10.3, plt elevation 509. No xochitl bleeding reported, patient states he has never had c-scope in past. Check next fecal occult as well for completeness Checking KUB for eval G-tube placement in ER now but did adjust/move G-tube bumper closer for now as recommended by surgery PA, official consult for AM CXR given progressive dysphagia/coarse BS, speech eval Of note, has NEVER seen by heme/onc in past or had imaging for eval metastatic disease -- will place orders for CT Chest, Abdomen/Pelvis for eval metastatic disease/further eval as discussed w/ Dr Beaulieu, official consult placed for the morning High risk for DVT given malignancy, no evidence for DVT at present, no pleuritic pain/hypoxia/hypotension to suggest PE --> Will utilize Lovenox SQ for DVT prevention, kidney function acceptable Patient currently Full Code, and given lack of information/treatment options at present seems reasonable but did have discussion about palliation if evidence for mets/limited option -- further discussions in f/u based on further testing/response to treatment as able to be provided. Monitor labs on repeat in AM (2) Hypercalcemia: Plan: prior elevations, improved during this current visit ? from dehydration/malignancy/etc check vit d for completeness but suspect also at least in part from malignancy/dehydration as well IVF for dehydration as outlined above Monitor labs in AM (3) Dehydration: Plan: IVF hydration/nutrition consulted as above (4) Dysphagia: Plan: 2nd to #1, NPO continued, speech consulted (5) Hypokalemia: Plan: 2.9, IV/Gtube replacement ordered IVF w/ 20meq ordered as above. Mag wnl Monitor labs on repeat/electrolyte replacement as indicated (6) Leaking percutaneous endoscopic gastrostomy (PEG) tube: Plan: as above, general surgery on consult will not utilize overnight feeding given issues/leaking -- further imaging as outlined above (7) Severe protein-calorie malnutrition: History of Present Illness Chief Complaint: issues with G-tube, dehydration Primary Care Provider: Kadeem Fitch 52 yo male with recent diagnosis of esophageal mass after presenting to ER on 10/19 with complaints of sore throat and things getting stuck and found to have large oropharyngeal mass on CT and discharged home (ca 12.8 at that time) with outpatient biopsy with Dr Barrios on 10/26 and G-tube placement with Dr Kim on 11/18 for squamous cell carcinoma of hypopharynx. Since G-tube placement, patient has been with inability to eat. Family states since then, having large amount of leakage around the tube since Tuesday evening. Seen in ER by surgery PA who adjusted placement, however appears possibly slipped back out a little. Surrounding erythema, and recs for topical antifungal/steroid cream. States it has been painful w/ burning sensation. Reports of recent admission to [facility] [place] where he was treated for malnutrition, discharged about two days ago. Patient really unable to tolerate anything but occasional sips of water. Regurgitation w/ that as well. He is with his sister and mother currently, frustrations over multiple ER trips and nothing done, which is why they took him to [facility] about two weeks ago. He has never had a colonoscopy. Reports about 45lb weight loss since the beginning of the year. Has not had any consultation with anyone from hematology/oncology or discussed chemotherapy/options. Never had PET scan. Prior heavy alcohol use, but nothing recently. Have been attempting to use continuous tube feeding at home at rate of 85cc/hr. Also endorses some soreness to his behind, no obvious open sores but start of possible pressure sore to his behind -- he does note sitting in chair for a week at [facility] [place]. Discussed admission for coordination of care, hydration, multiple drum sander/nutrition consult, consultation w/ surgery as well as hematology/oncology. Allergies Allergy/AdvReac Type Severity Reaction Status Date / Time No Known Drug Allergies Allergy Verified 11/18/22 06:46 Home Medications Medication Instructions Recorded Confirmed Type mupirocin 2 % topical ointment 1 applic topical TID #22 grams 11/28/22 11/29/22 Rx amoxicillin 600 mg-potassium 0 ml PO UD 11/29/22 11/29/22 History clavulanate 42.9 mg/5 mL oral suspension folic acid 1 mg tablet 1 mg PO DAILY 11/29/22 11/29/22 History oxycodone 5 mg/5 mL oral solution 5 mg PO Q4 PRN mod-severe pain 11/29/22 11/29/22 History thiamine HCl (vitamin B1) 100 mg 100 mg PO DAILY 11/29/22 11/29/22 History tablet Past Med/Surg History Medical History Alcoholism pt states he currently is drinking 1 beer per week 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 History of asthma A CHILD Mass of hypopharynx Oropharyngeal mass SCC (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 Surgical History Gastrostomy tube in place (11/18/22) p Laparoscopic Assiststed Placement(Not Applicable) - Wilbur Kim DO s Gastrostomy Tube(Not Applicable) - Wilbur Kim DO History of laryngoscopy Direct laryngoscopy with biopsy of pharyngeal lesion History of wisdom tooth extraction Family History Mother Hypertension Diabetes Father Cancer Other No family history of adverse response to anesthesia No significant family history Social History Smoking Status: Former smoker Tobacco Type: Cigarettes packs per day: 1; Second Hand Exposure: No; Hx Alcohol Use: No Hx Substance Use: No Preferred Language: Estonian Communication Ability: Effective Visual Impairment: No Limitations Kettle Room Helper Required: No Beliefs That Will Affect Care: None marital status: Single Current Living Situation: Family Current Living Situation Comment: WITH MOTHER current occupational status: unemployed How many Children do You have: 0 Other Information That Helps Us Care for You: No Feels Safe at Home: Yes Safety Concerns: Feels Safe At This Time during the past year weight has: decreased > 10 lbs Assistive Devices: None Review of Systems Review of Systems: All systems reviewed & are unremarkable except as noted in HPI & below Physical Exam Physical Exam: general; chronically ill appearing male, cachectic/thin, sitting up in bed, sister and mother at bedside heent: mm DRY, cracking of lips, trachea midline +cervical lymphadenopathy chest: thin, visible ribs, no tenderness to palpation resp: no tachypnea, coarse breath sounds/rhonchi upper lung thakkar, worse on the right>left, diminished in the bases, on room air at present, SpO2 97% cv: rrr, slightly tachy to low 100s at times, no obvious murmur, no pitting edema/calf tenderness gi: +BS, distended, G-tube in place w/ surrounding drainage/erythema, fungal appearance noted, chas pads in place to absorb drainage, tenderness to palpation around site/drainage, no rigidity or guarding at present gu: no jean-baptiste msk/neuro: follows commands, no slurred speech/facial droop, generalized weakness from malnutrition psych: alert/oriented, cooperative with exam, depressed affect skin; cool but perfused, increased turgor Results & Data Results & Data Vital Signs (Past 12 Hours) Vital Signs Temp Pulse Pulse Resp BP BP Pulse Ox 11/29/22 15:09 90 18 127/76 97 11/29/22 14:00 16 98 11/29/22 13:18 11/29/22 12:06 36.8 C 107 H 20 98/47 L 98 O2 Del Method 11/29/22 15:09 Room Air 11/29/22 14:00 Room Air 11/29/22 13:18 Room Air 11/29/22 12:06 Room Air Laboratory Results 11/29/22 11/29/22 11/29/22 Range/Units 17:08 16:34 13:42 WBC (4.8-10.8) K/ul RBC (4.70-6.10) M/uL Hgb (14.0-18.0) g/dl Hct (42.0-52.0) % MCV (80.0-100.0) fL MCH (25.0-34.0) pg MCHC (32.0-36.0) g/dL RDW Std Deviation (36.4-46.3) fL RDW Coeff of Cony (11.5-14.5) % Plt Count (130-400) K/uL MPV (9.4-12.4) fL Immature Gran % (Auto) % Neut % (Auto) % Lymph % (Auto) % Brooks % (Auto) % Eos % (Auto) % Baso % (Auto) % Neut # (Auto) (1.40-6.50) K/uL Lymph # (Auto) (1.2-3.4) K/uL Brooks # (Auto) (0.11-0.59) K/uL Eos # (Auto) (0-0.50) K/uL Baso # (Auto) (0-0.2) K/uL Immature Gran # (Auto) (0.01-0.20) K/uL Sodium 138 (136-145) mmol/L Potassium 2.9 L (3.5-5.1) mmol/L Chloride 95 L (98-107) mmol/L Carbon Dioxide 32 (21-32) mmol/L Anion Gap 11 (3-11) BUN 10 (6-23) mg/dl Creatinine 0.52 L (0.6-1.4) mg/dl Est Cr Clr Drug Dosing 138.3 ml/min Est GFR ( Amer) 140.1 ml/min Est GFR (Non-Af Amer) 120.9 ml/min BUN/Creatinine Ratio 19.2 (10-20) Glucose 111 H (70-99(Fasting)) mg/dl Calcium 10.2 (8.6-10.3) mg/dl Phosphorus Cancelled 2.7 (2.5-4.9) mg/dl Magnesium 1.8 (1.7-2.4) mg/dl Total Bilirubin 0.7 (0.2-1.0) mg/dl AST 19 (13-39) U/L ALT 11 (7-52) U/L Alkaline Phosphatase 50 (34-104) U/L Total Protein 6.8 (6.0-8.3) gm/dl Albumin 3.3 L (3.4-5.0) gm/dl Globulin 3.5 (2.5-4.0) gm/dl Albumin/Globulin Ratio 0.9 (0.9-2) 25-OH Vitamin D Total Pending 11/29/22 Range/Units 13:42 WBC 15.74 H (4.8-10.8) K/ul RBC 3.21 L (4.70-6.10) M/uL Hgb 10.3 L (14.0-18.0) g/dl Hct 29.9 L (42.0-52.0) % MCV 93.1 (80.0-100.0) fL MCH 32.1 (25.0-34.0) pg MCHC 34.4 (32.0-36.0) g/dL RDW Std Deviation 45.6 (36.4-46.3) fL RDW Coeff of Cony 13.4 (11.5-14.5) % Plt Count 509 H (130-400) K/uL MPV 9.9 (9.4-12.4) fL Immature Gran % (Auto) 0.6 % Neut % (Auto) 79.7 % Lymph % (Auto) 7.7 % Brooks % (Auto) 11.4 % Eos % (Auto) 0.3 % Baso % (Auto) 0.3 % Neut # (Auto) 12.54 H (1.40-6.50) K/uL Lymph # (Auto) 1.21 (1.2-3.4) K/uL Brooks # (Auto) 1.80 H (0.11-0.59) K/uL Eos # (Auto) 0.04 (0-0.50) K/uL Baso # (Auto) 0.05 (0-0.2) K/uL Immature Gran # (Auto) 0.10 (0.01-0.20) K/uL Sodium (136-145) mmol/L Potassium (3.5-5.1) mmol/L Chloride (98-107) mmol/L Carbon Dioxide (21-32) mmol/L Anion Gap (3-11) BUN (6-23) mg/dl Creatinine (0.6-1.4) mg/dl Est Cr Clr Drug Dosing ml/min Est GFR ( Amer) ml/min Est GFR (Non-Af Amer) ml/min BUN/Creatinine Ratio (10-20) Glucose (70-99(Fasting)) mg/dl Calcium (8.6-10.3) mg/dl Phosphorus (2.5-4.9) mg/dl Magnesium (1.7-2.4) mg/dl Total Bilirubin (0.2-1.0) mg/dl AST (13-39) U/L ALT (7-52) U/L Alkaline Phosphatase (34-104) U/L Total Protein (6.0-8.3) gm/dl Albumin (3.4-5.0) gm/dl Globulin (2.5-4.0) gm/dl Albumin/Globulin Ratio (0.9-2) 25-OH Vitamin D Total Supervising Physician Co-Signing Physician Notes I personally saw and examined the patient. I verified all hoff points and agree with Marina Snow PA-C with the following exceptions and/or additions: 52 year old male who presents to the ER due to difficulty with his G-tube. Recent diagnosis of hypopharyngeal/supraglottic massat the end of September after many months of progressive difficulty swallowing. He was significantly hypercalcemic at that time but not discussed with the hospitalist group and d ischarged with plan for biopsy with ENT. Pathology of pharyngeal biopsy consistent with invasive squamous cell carcinoma - his family report they have never had results of this as Dr Barrios has been out of the office. G- tube placed by surgery - he has had ongoing problems with this leaking since. Admission to [place] for malnutrition and electrolyte abnormalities however apparently he did not see an oncologist down there. O/E Frail appearing, HS RRR, Chest CTAB, Abdo - skin breakdown with some surrounding erythema from g-tube to lower abdomen, no overt cellulitic areas A/P Invasive squamous cell carcinoma - consult oncology, CT C/A/P as advised by Dr Beaulieu. Skin breakdown - consult wound care Hypokalemia - IV replacement as necessary, continue to monitor labs for refeeding syndrome G-tube malfunction - clearly not working correctly despite surgery just adjusting. It was again pulled out and tightened by myself as already leaking since surgery adjusted causing significant skin breakdown around this without overt cellulitis. CT A/P to further investigate this as well as cancer workup. Severe protein-calorie malnutrition - restart g tube nutrition once surgery review again tomorrow and CT A/P doesn't show any problems with this. PG Care Time/CCT Total # of Minutes Spent Total Time Spent with Patient: Total time spent is greater than 50% in coordination of care (as documented) at patient's floor/unit and/or counseling patient: Coding Level of Care Code 07164 INT INP/OBS CARE 75MIN Diagnoses Squamous cell carcinoma of hypopharynx C13.9 Hypercalcemia E83.52 Dehydration E86.0 Dysphagia R13.10 Hypokalemia E87.6 Leaking percutaneous endoscopic gastrostomy (PEG) tube K94.23 Severe protein-calorie malnutrition E43
[2022-11-29 16:58] LABS: Phosphorus 2.7 mg/dl (2.5-4.9)
--- NOTE | 2022-11-29 19:14 | XRay Report ---
XR chest 1V portable CLINICAL HISTORY: eval/dysphagia TECHNIQUE: Single frontal radiograph of the chest was obtained. Comparison: Comparison is made to chest radiograph 08/12/2015 FINDINGS: No lines and tubes are seen. The cardiomediastinal silhouette is normal. The lungs are clear. No evid ence of pleural effusion or pneumothorax. IMPRESSION: No acute chest disease. ACT 112: Negative or not required by law. Electronically signed by: Ronaldo Millan M.D. 11/29/2022 7:13 PM
[2022-11-29] MEDS ORDERED: ACETAMINOPHEN 1,000 MG/100 ML VIAL IV PRN (20:33)
[2022-11-29] MEDS ORDERED: ONDANSETRON INJ 2 MG/ML 2 ML VIAL IV PRN (20:33)
--- NOTE | 2022-11-29 21:00 | XRay Report ---
XR KUB/Abdomen 1 view CLINICAL HISTORY: g-tube placement TECHNIQUE: 1 view of the abdomen was obtained. Comparison: Comparison is made to abdomen radiograph November 28 2022 FINDINGS: Gastrostomy tube is seen, of note no contrast was not administered. The osseous structures are grossl y unremarkable. The bowel gas pattern is nonobstructive. A moderate amount of stool is noted within t he large bowel. IMPRESSION: Contrast was not administered, however the gastrostomy tube appears grossly in satisfactory appearanc e. ACT 112: Negative or not required by law. Electronically signed by: Ronaldo Millan M.D. 11/29/2022 8:58 PM
[2022-11-29] MEDS: NSS + 20MEQ KCL 20 MEQ/1,000 ML BAG IV SCH (21:48)
[2022-11-29] MEDS: PANTOprazole 40 MG in SYRINGE 0 ML IV SCH (21:51)
[2022-11-29] MEDS: MICONAZOLE NITRATE POWDER 85 GM EXT SCH (21:52)
[2022-11-29] MEDS: ENOXAPARIN INJ 40 MG/0.4 ML SYR SQ SCH (21:52)
[2022-11-29] MEDS ORDERED: OPTIRAY 350 100ml IV ONE (23:06)
--- NOTE | 2022-11-29 23:45 | CT Scan Report ---
Exam(s): CT CHEST With Contrast IV Amt: 84 ml optirray EXAM: CT Chest With Intravenous Contrast CLINICAL HISTORY: Reason for exam: squamous ca oropharynx, eval metastatic disease. TECHNIQUE: Axial computed tomography images of the chest with intravenous contrast. CTDI is 37.4 mGy and DLP is 685 mGy-cm. Automated exposure control was utilized for the study. A dose lowering technique was utilized adhering to the principles of ALARA. CONTRAST: Patient received 84 ml Optiray of IV contrast COMPARISON: No relevant prior studies available. FINDINGS: Lungs: Mild emphysematous changes in the lungs with trace amounts of scarring in the lung bases. No acute infiltrate is seen. Pleural space: Unremarkable. No pneumothorax. No significant effusion. Heart: Unremarkable. No cardiomegaly. No significant pericardial effusion. No significant coronary artery calcifications. Bones/joints: Mild degenerative changes throughout the spine. No acute fracture or bone lesion is seen. No dislocation. Soft tissues: Unremarkable. Vasculature: The pulmonary arterial tree is adequately opacified with contrast. There is motion artifact involving the lower lobe branches. No pulmonary emboli are identified. The thoracic aorta is nondilated. There is no aneurysm or dissection. Lymph nodes: Unremarkable. No enlarged lymph nodes. Intraperitoneal space: There is a large amount of pneumoperitoneum in the upper abdomen. Please see CT abdomen and pelvis for additional details. IMPRESSION: There is a large amount of pneumoperitoneum in the upper abdomen. Please see CT abdomen and pelvis for additional details. No acute intrathoracic process is identified. No metastatic disease is identified. Electronically signed by: Francois Driver MD 11/29/22 23:44 PM
--- NOTE | 2022-11-29 23:51 | CT Scan Report ---
Exam(s): CT ABDOMEN + PELVIS With Contrast IV Amt: 84 ml optiray EXAM: CT Abdomen and Pelvis With Intravenous Contrast CLINICAL HISTORY: Reason for exam: abdominal pain, ca, eval for met disease. TECHNIQUE: Axial computed tomography images of the abdomen and pelvis with intravenous contrast. CTDI is 37.4 mGy and DLP is 685 mGy-cm. Automated exposure control was utilized for the study. A dose lowering technique was utilized adhering to the principles of ALARA. CONTRAST: Patient received 84 ml optiray of IV contrast COMPARISON: No relevant prior studies available. FINDINGS: Lung bases: Unremarkable. No mass. No consolidation. ABDOMEN: Liver: Unremarkable. No mass. Gallbladder and bile ducts: The gallbladder is mildly contracted but unremarkable. No calcified stones. No ductal dilation. Pancreas: Unremarkable. No mass. No ductal dilation. Spleen: Unremarkable. No splenomegaly. Adrenals: Unremarkable. No mass. Kidneys and ureters: Unremarkable. No solid mass. No hydronephrosis. Stomach and bowel: Unremarkable. No obstruction. No mucosal thickening. PELVIS: Appendix: There is contrast within the right and transverse colon. Bowel loops are nondilated. The appendix is normal. There is possible mild wall thickening involving the distal stomach suggesting mild gastritis. No other acute inflammatory changes are seen involving the bowel. Bladder: The urinary bladder wall is upper normal in thickness, likely due to a completely distended status. Reproductive: Unremarkable as visualized. ABDOMEN and PELVIS: Intraperitoneal space: There is a large amount of pneumoperitoneum in the upper abdomen. There is a gas filled channel measuring approximately 1.6 cm in diameter extending from the skin surface to the stomach along a gastrostomy tract. The balloon is inflated within the stomach. Consider tract infection/breakdown. No significant fluid collection. Bones/joints: Mild degenerative changes in the spine. No fracture or bone lesion is seen. No dislocation. Soft tissues: Unremarkable. Vasculature: Unremarkable. No abdominal aortic aneurysm. Lymph nodes: Unremarkable. No enlarged lymph nodes. IMPRESSION: 1. There is a large amount of pneumoperitoneum in the upper abdomen. There is a gas filled channel measuring approximately 1.6 cm in diameter extending from the skin surface to the stomach along a gastrostomy tract. The balloon is inflated within the stomach. Consider tract infection/breakdown. 2. There is contrast within the right and transverse colon. Bowel loops are nondilated. The appendix is normal. There is possible mild wall thickening involving the distal stomach suggesting mild gastritis. No other acute inflammatory changes are seen involving the bowel. 3. No metastatic disease is identified. Communications: Call Doctor Above results Electronically signed by: Francois Driver MD 11/29/22 23:50 PM
[2022-11-30 02:31] LABS: Appearance Urine Cloudy (Clear); Bilirubin Urine Negative (Negative); Blood Urine 3+ (Negative); Color Urine Yellow; Glucose Urine UA Negative (Negative); Ketones Urine 3+ (Negative); Leukocyte Esterase Urine 3+ (Negative); Nitrite Urine Negative (Negative); Protein Urine 3+ (Negative); Specific Gravity Urine 1.015 (1.000-1.030); Urobilinogen Urine Negative (Negative); pH Urine 7.5 (4.5-7.5)
[2022-11-30 02:53] LABS: Bacteria Urine 2+ (Negative); WBC Urine >30 /hpf (0-5)
[2022-11-30 02:54] LABS: Hyaline Casts Urine 0-5 /lpf (0-5)
[2022-11-30 06:16] LABS: Basophils # (auto) 0.04 K/uL (0-0.2); Basophils % (auto) 0.3 %; Eosinophils # (auto) 0.08 K/uL (0-0.50); Eosinophils % (auto) 0.7 %; Hematocrit (blood only) 26.6 % (42.0-52.0); Immature Granulocytes # (auto) 0.07 K/uL (0.01-0.20); Immature Granulocytes % (auto) 0.6 %; Lymphocytes # (auto) 1.01 K/uL (1.2-3.4); Lymphocytes % (auto) 8.2 %; Mean Corpuscular Hemoglobin 32.3 pg (25.0-34.0); Mean Corpuscular Hgb Conc 33.8 g/dL (32.0-36.0); Mean Corpuscular Volume 95.3 fL (80.0-100.0); Mean Platelet Volume 9.3 fL (9.4-12.4); Monocytes # (auto) 1.17 K/uL (0.11-0.59); Monocytes % (auto) 9.5 %; Neutrophils # (auto) 9.93 K/uL (1.40-6.50); Neutrophils % (auto) 80.7 %; Platelet Count 484 K/uL (130-400); RDW Coefficient of Variation 13.4 % (11.5-14.5); RDW Standard Deviation 46.4 fL (36.4-46.3); Red Blood Count 2.79 M/uL (4.70-6.10)
[2022-11-30 06:31] LABS: Albumin Globulin Ratio 0.9 (0.9-2); Albumin Level 2.8 gm/dl (3.4-5.0); BUN Creatinine Ratio 17.8 (10-20); Bilirubin,Total 0.6 mg/dl (0.2-1.0); Calcium 9.7 mg/dl (8.6-10.3); Creatinine Clr Calc Pharmacy 156.3 ml/min; Est GFR (African American) 148.7 ml/min; Est GFR (Non-African American) 128.3 ml/min; Globulin 3.1 gm/dl (2.5-4.0); Magnesium 1.7 mg/dl (1.7-2.4); Phosphorus 2.4 mg/dl (2.5-4.9); Potassium 2.9 mmol/L (3.5-5.1); Total Protein 5.9 gm/dl (6.0-8.3)
[2022-11-30 06:49] LABS: Ferritin 1255.2 ng/ml (8-388)
[2022-11-30] MEDS ORDERED: POTASSIUM ACETATE/NSS 10 MEQ/105 ML BAG IV STA (07:42)
[2022-11-30] MEDS: THIAMINE HCL 100 MG in SYRINGE 9 ML IV SCH (08:45)
[2022-11-30] MEDS: MICONAZOLE NITRATE POWDER 85 GM EXT SCH (08:45)
[2022-11-30] MEDS: POTASSIUM CHLORIDE / WTR 10 MEQ/100 ML PLCT IV SCH ×4 (10:02→15:47)
--- NOTE | 2022-11-30 10:12 | Radiation OncologyConsultation ---
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 He had developed soreness of the throat and underwent evaluation by ENT. He has had ongoing difficulty with swallowing. NG tube placed. He was admitted at [facility] from 11/19/2022 to 11/27/2022 for malnutrition and aspiration pneumonia. While there he received parenteral nutrition then continuous feeding by the G-tube. He had CTs of the chest and abdomen. The G-tube was properly placed in the gastric lumen. CT of the chest did show bronchiolitis. Suggestive of aspiration. He was discharged home. Once at home he began to have issues with the G-tube. There was leakage of the [employer]ers[employer]. He is steadily became more dehydrated. He presented to the emergency room and was admitted. Plan ATTENDING ADDENDUM Assessment: Mr. Fitch is a 52-year-old gentleman who presents with a new diagnosis of locally advanced hypopharyngeal cancer. The patient was initially diagnosed by Dr. Barrios and was referred to both medical oncology and radiation oncology. Unfortunately the patient was unable to make his appointments for medical oncology and radiation oncology, the patient did have issues with a recently placed gastrostomy tube and then ultimately went to [facility] for further care and evaluation. The patient was discharged from [facility] and then was readmitted to [facility] due to further issues regarding his gastrostomy tube and overall poor nutrition. To this point, the patient has had no treatment regarding his head and neck cancer. I been asked to evaluate him regarding the role of radiation therapy. Recommendation: Consideration for concurrent chemotherapy and radiation therapy in the outpatient setting. Plan: 1. Medical management and optimization including management regarding the patient's gastrostomy tube. Overall, the patient needs to be in better place nutritionally prior to starting treatment. 2. Medical oncology input appreciated. 3. When stable, the patient should be seen in the outpatient setting for CT simulation for treatment planning for radiation therapy. 4. PET/CT scan for staging is ideal if possible prior to initiation of treatment. 5. CT neck with contrast in the inpatient setting to determine current extent of disease. 6. Patient and family encouraged to call us with any further questions or concerns. Rationale/Explanation of Treatment: I have explained the indications, alternatives, benefits, risks and side effects of radiation therapy. I have explained the most common side effects including but are not limited to skin erythema, skin break down, hair loss, fibrosis, adhesion development, heart failure and heart disease, esophagitis, esophageal stenosis, bowel obstruction, urinary symptoms, thyroid disorders, mucositis, nausea, vomiting, diarrhea, anemia, fatigue, carotid artery stenosis and development of secondary malignancy. Additionally, patients suffer may have xerostomia, stomatitis, glossitis, dysphagia, aspiration, mandibular osteoradionecrosis, mucocutaneous fistula formation, lymphedema in the neck, pharyngeal edema, mucositis, loss of taste. I have explained the CT simulation process and treatment planning. I explained what to expect before, during and after treatment on a regular basis. I did have the opportunity to speak with the patient's mother and sister and answered all of their questions as well. History of Present Illness Reason for Consultation: Squamous cell carcinoma of the hypopharynx/supraglottis Requesting Physician: Paul You Attending Physician: Paul You History of Present Illness 11/16/2022. Presentation to the emergency room. 4 to 6-week history of right- sided sore throat. Unable to swallow solid foods. Coughed up bloody saliva. 10/19/2021. CT of the neck. 1. Large heterogeneously enhancing posterior hypopharyngeal/supraglottic mass that measures 6.4 x 6 x 2.9 cm and results in mild effacement of the supraglottic airway. This is highly suggestive of a neoplasm and suspicious for squamous cell carcinoma. ENT consultation is recommended. 2. Prominent intermediate bilateral cervical lymph nodes. These could be assessed with PET/CT. 10/19/2022. Chest CT. 1. Minimal tree-in-bud nodules within the right middle lobe. These favor an infectious process such as bronchiolitis. 2. Large mass centered within the posterior hypopharynx, better depicted on the neck CT. Please see that report for further discussion. No evidence for metastatic disease within the chest. 10/21/2022. ENT consultation (Dr. Barrios). Examination reveals a 1.5 cm right level 3 lymph node mobile and nontender. NPL examination shows a large exophytic mass involving the entire posterior pharynx wall extending past midline involving the pharyngeal surface of the epiglottis, right AE fold and arytenoid, entire posterior cricoid space, and piriform sinus on the left. 10/26/2022. Microlaryngoscopy with biopsies of pharynx. Biopsies revealed well-differentiated squamous cell carcinoma. An accurate depth of invasion cannot be provided on the current specimen due to malrotation. No perineural or lymphovascular invasion is identified. P16 shows weak, patchy, cytoplasmic only staining which is considered to be nonspecific. P53 is mostly negative with only very rare cells showing weak nuclear staining. The overall findings are consistent with an HPV negative squamous cell carcinoma. Clinical stage [id number]. Stage MEENAKSHI. Pathology was reviewed at [place]. Invasive squamous cell carcinoma, p16 negative. 11/18/2022. Placement of G-tube. 11/19-11/27/2022. [facility]. Diagnosis of malnutrition, abdominal pain, throat cancer, aspiration pneumonia and refeeding syndrome. 11/19/2022. CT of abdomen and pelvis. Pneumoperitoneum, likely related to gastrostomy placement. There is no evidence of free fluid or any acute inflammatory process. The gastrostomy retention balloon and tip lie within the gastric lumen. 11/25/2022. Chest CT at [facility]. Bilateral lower lobe mild bronchiolitis, distribution suggestive of aspiration. Findings suggestive of esophagitis, potential related to reflux. Slight decreased pneumoperitoneum from CT on 11/19/2022. 11/30/2022. Admission to [facility] due to dehydration. G- tube displacement and leakage. He has been feeling steadily weak due to inability to have intake of nutrition. He has a pain level of 4-5 with swallowing. He is able to swallow his own saliva. He has a pain level of 5 in the area of the G-tube. He was seen today by surgery. There was repositioning of the bumper to help stop the leakage from around the tube. Our office was consulted to discuss future treatment. Allergies Allergy/AdvReac Type Severity Reaction Status Date / Time No Known Drug Allergies Allergy Verified 11/18/22 06:46 Home Medications Medication Instructions Recorded Confirmed Type mupirocin 2 % topical ointment 1 applic topical TID #22 grams 11/28/22 11/29/22 Rx amoxicillin 600 mg-potassium 0 ml PO UD 11/29/22 11/29/22 History clavulanate 42.9 mg/5 mL oral suspension folic acid 1 mg tablet 1 mg PO DAILY 11/29/22 11/29/22 History oxycodone 5 mg/5 mL oral solution 5 mg PO Q4 PRN mod-severe pain 11/29/2206/13 History thiamine HCl (vitamin B1) 100 mg 100 mg PO DAILY 11/29/22 11/29/22 History tablet Patient History Medical History (Updated 11/30/22 @ 11:16 by Godwin Garcia MD) Alcoholism pt states he currently is drinking 1 beer per week per lacquer maker call History of asthma A CHILD Mass of hypopharynx Oropharyngeal mass SCC (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 Surgical History (Updated 11/30/22 @ 13:23 by Wilbur Kim DO) Gastrostomy tube in place (11/18/22) p Laparoscopic Assiststed Placement(Not Applicable) - Wilbur Kim DO s Gastrostomy Tube(Not Applicable) - Wilbur Kim DO History of laryngoscopy Direct laryngoscopy with biopsy of pharyngeal lesion History of wisdom tooth extraction Family History Mother Hypertension Diabetes Father Cancer Other No family history of adverse response to anesthesia No significant family history Social History Smoking Status: Former smoker Tobacco Type: Cigarettes packs per day: 1; Second Hand Exposure: No; Hx Alcohol Use: No Hx Substance Use: No Preferred Language: Mosotho Communication Ability: Effective Visual Impairment: No Limitations Supervisor Pig Machine Required: No Beliefs That Will Affect Care: None marital status: Single Current Living Situation: Family Current Living Situation Comment: WITH MOTHER current occupational status: unemployed How many Children do You have: 0 Other Information That Helps Us Care for You: No Feels Safe at Home: Yes Safety Concerns: Feels Safe At This Time during the past year weight has: decreased > 10 lbs Assistive Devices: None Review of Systems Review of Systems: Throat pain. Discomfort and swelling. Physical Exam Constitutional: + thin, + disheveled and + malnourished Eyes: EOM intact bilaterally ENMT: Ears: no hearing impairment Examination of the mouth shows multiple dental caries. There are no visible lesions in the posterior pharynx. Neck: trachea midline, no thyromegaly Respiratory: normal respiratory effort, lungs clear to auscultation Cardiovascular: RRR, no murmur, no edema Gastrointestinal (Abdomen): normal bowel sounds, soft, nontender, no hepatosplenomegaly Skin: no rashes, warm and dry Neurologic: Normal strength and coordination. Psychiatric: A+Ox3, euthymic affect Lymphatic: Right level 3 cervical lymph node. Time Spent Midlevel I spent [20] minutes in preparation for this follow up evaluation including reviewing all the clinical records, reviewing laboratory studies, pathology reports and imaging results. I spent [20] minutes with direct face to face interaction with the patient and/or family including performing a physical exam and answering all questions. I spent [10] minutes documenting this patient's visit. Attending I spent 10 minutes in preparation for this consultation including reviewing all the clinical records, reviewing laboratory studies, pathology reports and imaging results. I spent 30 minutes with direct face to face interaction with the patient and/or family including performing a physical exam and answering all questions. I spent 10 minutes documenting this patient's visit. I spent 10 minutes speaking with the following providers regarding this patien t's care: Dr. Beaulieu. PG Care Time/CCT Total # of Minutes Spent Total Time Spent with Patient: Total time spent is greater than 50% in coordination of care (as documented) at patient's floor/unit and/or counseling patient: Coding Level of Care Code 06686 IN/OBS CONSULT LVL 4,60M Diagnoses Hypopharyngeal cancer C13.9
[2022-11-30] MEDS: MoRPHine SULFATE 2 MG/ML CARP IV PRN ×3 (11:33→21:04)
[2022-11-30] MEDS: PANTOprazole 40 MG in SYRINGE 0 ML IV SCH (11:35)
[2022-11-30] MEDS ORDERED: POTASSIUM PHOS 3 MMOL/1 ML INFUSION IV STA (12:46)
--- NOTE | 2022-11-30 12:51 | Oncology Consultation ---
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 -He will need definitive treatment with concurrent chemoradiation therapy utilizing cisplatin. Discussed this with the patient including potential side effects. Plan to start upon discharge from hospital -Agree with recommendations from radiation oncology regarding updating CT neck imaging inpatient and outpatient PET scan -Agree with optimizing nutritional status via G-tube feeds. Thank you for this consult. Oncology will follow peripherally while in the hospital and plan for outpatient follow-up upon discharge. Please feel free to call if you have any further questions History of Present Illness Reason for Consultation: Squamous cell carcinoma of the hypopharynx Attending Physician: Paul You History of Present Illness Pleasant 52-year-old gentleman recently diagnosed with stage MEENAKSHI squamous cell carcinoma of the hypopharynx. He presented to the ER at [facility] yesterday because of persistent drainage from around G-tube. Per review of his records, he had presented to the ED at [facility] with complaints of sore throat and dysphagia. CT neck on 10/11/2021 revealed large posterior hypopharyngeal mass measuring 6.4 x 6 x 2.9 cm. 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 He subsequently had G-tube placed on 11/18/2022. He was admitted to [facility] shortly afterwards for malnutrition and aspiration pneumonia. He then presented to [facility] yesterday because of leakage from around G-tube. CT chest, abdomen and pelvis obtained on admission did not show any evidence to suggest distant metastatic disease but revealed large amount of pneumoperitoneum in the upper abdomen which is being managed conservatively by general surgery. Oncology was consulted to discuss treatment plan with patient and his family He endorses more than [id number] history of smoking. Quit smoking earlier this year. Endorses throat pain and dysphagia/odynophagia. Denies otalgia. Endorses about 45 pounds weight loss over the past 3 to 4 months Allergies Allergy/AdvReac Type Severity Reaction Status Date / Time No Known Drug Allergies Allergy Verified 11/18/22 06:46 Home Medications Medication Instructions Recorded Confirmed Type mupirocin 2 % topical ointment 1 applic topical TID #22 grams 11/28/22 11/29/22 Rx amoxicillin 600 mg-potassium 0 ml PO UD 11/29/22 11/29/22 History clavulanate 42.9 mg/5 mL oral suspension folic acid 1 mg tablet 1 mg PO DAILY 11/29/22 11/29/22 History oxycodone 5 mg/5 mL oral solution 5 mg PO Q4 PRN mod-severe pain 11/29/22 11/29/22 History thiamine HCl (vitamin B1) 100 mg 100 mg PO DAILY 11/29/22 11/29/22 History tablet Patient History Medical History (Updated 11/30/22 @ 17:34 by Juju Beaulieu MD) Alcoholism pt states he currently is drinking 1 beer per week per epitaxial reactor technician call History of asthma A CHILD Mass of hypopharynx Oropharyngeal mass SCC (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 Surgical History (Updated 11/30/22 @ 13:23 by Wilbur Kim DO) Gastrostomy tube in place (11/18/22) p Laparoscopic Assiststed Placement(Not Applicable) - Wilbur Kim DO s Gastrostomy Tube(Not Applicable) - Wilbur Kim DO History of laryngoscopy Direct laryngoscopy with biopsy of pharyngeal lesion History of wisdom tooth extraction Family History Mother Hypertension Diabetes Father Cancer Other No family history of adverse response to anesthesia No significant family history Social History Smoking Status: Former smoker Tobacco Type: Cigarettes packs per day: 1; Second Hand Exposure: No; Hx Alcohol Use: No Hx Substance Use: No Preferred Language: Indonesian Communication Ability: Effective Visual Impairment: No Limitations Centerless Grinding Machine Adjuster Required: No Beliefs That Will Affect Care: None marital status: Single Current Living Situation: Family Current Living Situation Comment: WITH MOTHER current occupational status: unemployed How many Children do You have: 0 Other Information That Helps Us Care for You: No Feels Safe at Home: Yes Safety Concerns: Feels Safe At This Time during the past year weight has: decreased > 10 lbs Assistive Devices: None Review of Systems Review of Systems: All systems reviewed & are unremarkable except as noted in Subjective Results & Data Vital Signs (Past 12 Hours) Vital Signs Temp Pulse Pulse Resp BP Pulse Ox O2 Del Method 11/30/22 11:04 37.3 C 85 20 132/74 96 Room Air 11/30/22 08:05 37.1 C 95 H 20 134/79 97 Room Air 11/30/22 07:13 81 11/30/22 03:11 36.9 C 96 H 18 130/77 100 Room Air
[2022-11-30] MEDS ORDERED: POTASSIUM PHOSPHATE 15 MMOL in SODIUM CHLORIDE 0.9% 250 ML IV ONE (13:15)
--- NOTE | 2022-11-30 13:26 | Surgery Progress Note ---
Date of Service November 30, 2022 Assessment & Plan (1) Severe protein-calorie malnutrition: (2) Gastrostomy tube in place: Plan: I did review the CT scan. He is not healing very well likely from his malnutrition. Nonetheless I believe the free air is following the tube down the track I do not believe he actually has a gastric perforation at this point. The main issue is leakage around the balloon. It is imperative that we keep the external button secure against the abdominal wall to keep the balloon up against the gastric wall internally. I cut the sutures and replaced the button after tightening the balloon. I also added about 4 cc of fluid to the balloon. I then secured the external button to the tube using 0 Vicryl. Hopefully this will keep it from sliding so much. I also believe he would do better with bolus feeds rather than continuous feeds so that we only have to tighten the balloon at each feeding rather than trying to keep it tight 24 hours a day. We have shown his nurse how to do this and she can pass it onto her colleagues that each sign out. I also want to add Lotrisone cream to the dermatitis. We will start slow and we will try 300 cc of tube feedings 4 times a day. If he tolerates this without difficulty we will increase the tube feeds. I will continue to follow along closely this admission Admission and Anticipated Discharge Date Admission Date: November 30, 2022 Subjective Patient seen. Continues to have some drainage around the gastrostomy tube. He was in [facility] for about a week and they were able to use the gastrostomy tube without much difficulty. Physical Exam Physical Exam: Alert. No acute distress. Malnourished Abdomen is soft. He does have some bile draining around the tube as well as some dermatitis in the form of likely HCl burn as well as yeast infection. Results & Data Vital Signs (Past 12 Hours) Vital Signs Temp Pulse Pulse Resp BP Pulse Ox O2 Del Method 11/30/22 13:02 Room Air 11/30/22 11:04 37.3 C 85 20 132/74 96 Room Air 11/30/22 08:05 37.1 C 95 H 20 134/79 97 Room Air 11/30/22 07:13 81 11/30/22 03:11 36.9 C 96 H 18 130/77 100 Room Air PG Care Time/CCT Total # of Minutes Spent Total Time Spent with Patient: Total time spent is greater than 50% in coordination of care (as documented) at patient's floor/unit and/or counseling patient: Coding Level of Care Code 59764 Post Operative Follow-Up Diagnoses Severe protein-calorie malnutrition E43 Gastrostomy tube in place Z93.1
[2022-11-30] MEDS: CLOTRIMAZOLE/BETAMETHASONE CR 15 GM TUBE EXT SCH (15:22)
[2022-11-30] MEDS: NUTREN LIQD 2.0 1,000 ML BAG PEG SCH ×2 (17:34→20:00)
[2022-11-30] MEDS: TUBE FEEDING WATER FLUSH PEG SCH ×2 (17:34→21:03)
[2022-11-30] MEDS: NSS + 20MEQ KCL 20 MEQ/1,000 ML BAG IV SCH (21:01)
[2022-11-30] MEDS: ENOXAPARIN INJ 40 MG/0.4 ML SYR SQ SCH (21:04)
--- NOTE | 2022-11-30 23:59 | Hospitalist Progress Note ---
Date of Service November 30, 2022 Assessment & Plan (1) Squamous cell carcinoma of hypopharynx: Plan: recent diagnosis, now w/ G-tube but issues w/ placement, dehydration and dysphagia from mass w/ limited ability for PO intake, recent 10 day inpatient stay [facility] for dehydration and presented again dehydrated Request records from [facility] for recent admission Admit to monitored bed, HIGH RISK FOR REFEEDING SYNDROME and K 2.9 on admission --> checking phos/mag --> mag 1.8, phos 2.7 nutrition on consult for TPN in meantime if any ongoing issues w/ G-tube holding off on using G-tube at present given current issues Topical Lotrimin BID recommended by general surgery for surrounding erythema to G-tube -- may need to require systemic antifungals pending repeat eval Also placed consult for wound RN, also possible start of pressure ulcer to buttocks For dehydration/abdominal pain Place on IVF w/ 20meq K for dehydration, electrolyte replacement as needed. K 2.9 on admission, given 40meq through G-tube, 10meq IV. Check EKG, also checking CK as well Added protonix IVP daily for GI prophylaxis/reflux Antiemetics/pain control prn Will check blood cultures, urine. Holding off on abx at present & will await scans as ordered below for eval met disease Checking procal given WBC 15k, iron/b12/folate in AM given anemia w/ hgb 10.3, plt elevation 509. No xochitl bleeding reported, patient states he has never had c-scope in past. Check next fecal occult as well for completeness Checking KUB for eval G-tube placement in ER now but did adjust/move G-tube bumper closer for now as recommended by surgery PA, official consult for AM CXR given progressive dysphagia/coarse BS, speech eval Of note, has NEVER seen by heme/onc in past or had imaging for eval metastatic disease -- will place orders for CT Chest, Abdomen/Pelvis for eval metastatic disease/further eval as discussed w/ Dr Beaulieu, official consult placed for the morning High risk for DVT given malignancy, no evidence for DVT at present, no pleuritic pain/hypoxia/hypotension to suggest PE --> Will utilize Lovenox SQ for DVT prevention, kidney function acceptable Patient currently Full Code, and given lack of information/treatment options at present seems reasonable but did have discussion about palliation if evidence for mets/limited option -- further discussions in f/u based on further testing/response to treatment as able to be provided. On 11/30 will consult heme/onc radiation onc will obtain imaging of neck will consult dietary will reach out to gen surgery to assess if this can be used. will recommend starting nutrition and monitor for refeeding syndrome. will replace electrolytes (2) Hypercalcemia: Plan: prior elevations, improved during this current visit ? from dehydration/malignancy/etc check vit d for completeness but suspect also at least in part from malignancy/dehydration as well IVF for dehydration as outlined above Monitor labs in AM (3) Dehydration: Plan: IVF hydration/nutrition consulted as above (4) Dysphagia: Plan: 2nd to #1, NPO continued, speech consulted (5) Hypokalemia: Plan: 2.9, IV/Gtube replacement ordered IVF w/ 20meq ordered as above. Mag wnl Monitor labs on repeat/electrolyte replacement as indicated (6) Leaking percutaneous endoscopic gastrostomy (PEG) tube: Plan: as above, general surgery on consult will not utilize overnight feeding given issues/leaking -- further imaging as outlined above (7) Severe protein-calorie malnutrition: Admission and Anticipated Discharge Date Admission Date: November 30, 2022 Subjective Patient reports no new symptoms Review of Systems Review of Systems: All systems reviewed & are unremarkable except as noted in HPI & below Physical Exam Physical Exam: general; chronically ill appearing male, cachectic/thin, sitting up in bed, sister and mother at bedside heent: trachea midline +cervical lymphadenopathy resp: no tachypnea, coarse breath sounds cv: rrr, tachyno obvious murmur, no pitting edema/calf tenderness gi: +BS, distended, G-tube in place w/ surrounding erythema gu: no jean-baptiste msk/neuro: follows commands, no slurred speech/facial droop, generalized weakness from malnutrition psych: alert/oriented, cooperative with exam, depressed affect skin; cool but perfused, increased turgor Results & Data Results & Data Vital Signs (Past 12 Hours) Vital Signs Temp Pulse Pulse Pulse Resp BP Pulse Ox 11/30/22 22:15 37.2 C 111 H 22 141/86 H 96 11/30/22 19:00 37.0 C 104 H 18 129/81 96 11/30/22 15:06 81 11/30/22 15:04 37.0 C 97 H 18 130/73 98 11/30/22 13:02 O2 Del Method 11/30/22 22:15 Room Air 11/30/22 19:00 Room Air 11/30/22 15:06 11/30/22 15:04 Room Air 11/30/22 13:02 Room Air PG Care Time/CCT Total # of Minutes Spent Total Time Spent with Patient: Total time spent is greater than 50% in coordination of care (as documented) at patient's floor/unit and/or counseling patient: Coding Level of Care Code 92756 SUB INP/OBS CARE 350MIN Diagnoses Squamous cell carcinoma of hypopharynx C13.9 Hypercalcemia E83.52 Dehydration E86.0 Dysphagia R13.10 Hypokalemia E87.6 Leaking percutaneous endoscopic gastrostomy (PEG) tube K94.23 Severe protein-calorie malnutrition E43 Time Spent (min) 50
[2022-12-01] MEDS: TUBE FEEDING WATER FLUSH PEG SCH ×6 (01:00→19:46)
[2022-12-01] MEDS: NSS + 20MEQ KCL 20 MEQ/1,000 ML BAG IV SCH ×3 (04:01→22:49)
[2022-12-01] MEDS: MoRPHine SULFATE 2 MG/ML CARP IV PRN ×3 (06:25→22:46)
[2022-12-01 08:32] LABS: Hematocrit (blood only) 26.4 % (42.0-52.0); Hemoglobin 9.2 g/dl (14.0-18.0); Mean Corpuscular Hemoglobin 32.6 pg (25.0-34.0); Mean Corpuscular Hgb Conc 34.8 g/dL (32.0-36.0); Mean Corpuscular Volume 93.6 fL (80.0-100.0); Mean Platelet Volume 8.9 fL (9.4-12.4); Platelet Count 549 K/uL (130-400); RDW Coefficient of Variation 13.4 % (11.5-14.5); RDW Standard Deviation 45.7 fL (36.4-46.3); Red Blood Count 2.82 M/uL (4.70-6.10); White Blood Count 13.35 K/ul (4.8-10.8)
[2022-12-01 08:53] LABS: Anion Gap 7 (3-11); BUN Creatinine Ratio 13.6 (10-20); Blood Urea Nitrogen 6 mg/dl (6-23); C Reactive Protein 15.16 mg/dl (0-0.5); Calcium 10.1 mg/dl (8.6-10.3); Carbon Dioxide 30 mmol/L (21-32); Chloride 105 mmol/L (98-107); Creatinine Clr Calc Pharmacy 161.3 ml/min; Est GFR (African American) > 150.0 ml/min; Est GFR (Non-African American) 129.5 ml/min; Glucose 106 mg/dl (70-99(Fasting)); Magnesium 1.6 mg/dl (1.7-2.4); Phosphorus 2.1 mg/dl (2.5-4.9); Potassium 3.1 mmol/L (3.5-5.1); Sodium 142 mmol/L (136-145)
[2022-12-01] MEDS ORDERED: OPTIRAY 350 100ml IV ONE (09:17)
[2022-12-01] MEDS: CLOTRIMAZOLE/BETAMETHASONE CR 15 GM TUBE EXT SCH (09:30)
[2022-12-01] MEDS: THIAMINE HCL 100 MG in SYRINGE 9 ML IV SCH (09:30)
[2022-12-01] MEDS: NUTREN LIQD 2.0 1,000 ML BAG PEG SCH ×4 (09:30→19:45)
[2022-12-01] MEDS: PANTOprazole 40 MG in SYRINGE 0 ML IV SCH (10:02)
--- NOTE | 2022-12-01 12:37 | Surgery Progress Note ---
Date of Service December 01, 2022 Assessment & Plan (1) Gastrostomy tube in place: Plan: I had a long discussion with the nursing supervisor lamp shades as well as the patient's nurse today. Is imperative that we keep this gastrostomy tube tightened down as discussed with the nurse yesterday. Is not good enough to simply change dressings. I have asked them to tighten the gastric tube every hour to try to keep the skin dry. As the tract matures this should get easier and symptoms should improve. They have also been running the tube feeds and on a pump. I have rediscussed with them again that I would prefer bolus feeds. We will start with 75 cc 4 times a day and increase them as he tolerates it. Continue the Lotrisone for the dermatitis but the most important part will be keeping the skin dry (2) Severe protein-calorie malnutrition: (3) Dermatitis associated with moisture: Admission and Anticipated Discharge Date Admission Date: November 30, 2022 Subjective Patient seen. He continues to struggle with leakage around the gastrostomy tube with some severe dermatitis of his skin. Physical Exam Physical Exam: Alert and oriented. His abdomen is soft. Gastrostomy tube is in place but it is loose with a large amount of bilious drainage. His dressings are saturated. He continues to have a severe inflammatory reaction of the skin surrounding the feeding tube. Results & Data Vital Signs (Past 12 Hours) Vital Signs Temp Pulse Pulse Resp BP Pulse Ox O2 Del Method 12/01/22 11:13 36.8 C 66 20 129/77 93 Room Air 12/01/22 10:28 95 H 12/01/22 07:53 36.9 C 106 H 20 143/83 H 95 Room Air 12/01/22 04:00 36.9 C 106 H 19 138/78 95 Room Air PG Care Time/CCT Total # of Minutes Spent Total Time Spent with Patient: Total time spent is greater than 50% in coordination of care (as documented) at patient's floor/unit and/or counseling patient: Coding Level of Care Code 03595 Post Operative Follow-Up Diagnoses Gastrostomy tube in place Z93.1 Severe protein-calorie malnutrition E43 Dermatitis associated with moisture L30.8
--- NOTE | 2022-12-01 14:33 | CT Scan Report ---
CT soft tissue neck w con CLINICAL HISTORY: neck mass Technique: Axial CT images of the soft tissues of the neck were obtained following intravenous admini stration of 100 cc of Omnipaque 300. Automated dose lowering techniques and/or adjustment according t o patient size were utilized for this exam. CT DOSE: 427.79 mGy.cm Comparison: Comparison is made to CT soft tissue neck 10/19/2022 Findings: Interval enlargement of the heterogeneously enhancing hypopharyngeal/supraglottic mass which now enio ures 34 x 69 mm compared to 28 x 62 mm in prior exam. Compared to the prior exam there appears to be new invasion of the thyroid cartilage. Trachea and hypopharynx are significantly narrowed but not fra nkly obstructed. Subcentimeter lymph nodes are seen bilaterally. In the cervical and bilateral subman dibular stations. The parotid glands, submandibular glands, and thyroid gland are unremarkable. Imaged portions of the brain parenchyma are unremarkable. The paranasal sinuses and mastoid air cell s are normal in appearance. Impression: Interval enlargement of previously noted large hypopharyngeal/supraglottic mass. There is new erosion of the right thyroid cartilage as well as apparently increased narrowing of the hypopharynx. Subcent imeter lymph nodes are unchanged. Findings are compatible with squamous cell carcinoma diagnosis and PET/CT can be performed for assessment of metastatic disease. ACT 112: Positive. There are findings on this exam that require communication between the performing entity and the patient following Patient Test Result Information Act ([place] Act 112) guidelines. Electronically signed by: Ronaldo Millan M.D. 12/01/2022 2:31 PM
[2022-12-01] MEDS: ENOXAPARIN INJ 40 MG/0.4 ML SYR SQ SCH (19:46)
[2022-12-01] MEDS ORDERED: PIPERACILLIN/TAZOBACTAM 3.375 GM (over 30 mins) IV ONE (21:00)
--- NOTE | 2022-12-01 22:28 | Hospitalist Progress Note ---
Date of Service December 01, 2022 Assessment & Plan (1) Squamous cell carcinoma of hypopharynx: Plan: recent diagnosis, now w/ G-tube but issues w/ placement, dehydration and dysphagia from mass w/ limited ability for PO intake, recent 10 day inpatient stay [facility] [place] for dehydration and presented again dehydrated Request records from [facility] for recent admission Patient admitted as patient has been having difficulty arranging outpatient management for this cancer diagnosis. Patient also has been having issues with nutrition due to the cancer and ongoing issues with the G tube. Patient has lost a significant amount of weight in the past few months, about 45 pounds with a BMI of 17 currently. His primary issue is nutrition and finding a way for him to be able to use his G tube at home. Currently patient is having multiple amounts of discharge from it, it appears to be gastric content. Appreciate input from Gen surgery. Consulted Radiation oncology and heme oncology. In regards to possible sepsis, patient the morning after admission showed improvement of in WBC and did not show signs of sepsis. However, on 12/01, patient tina=me tachycardic and this was sustained, WBC increased slightly. Obtained blood culture and vivienne place on zosyn on 12/01 Unknown source but could be abdominal. Admit to monitored bed, HIGH RISK FOR REFEEDING SYNDROME and K 2.9 on admission (2) Hypercalcemia: Plan: prior elevations, improved during this current visit ? from dehydration/malignancy/etc check vit d for completeness but suspect also at least in part from malignancy/dehydration as well IVF for dehydration as outlined above Monitor labs in AM (3) Dehydration: Plan: IVF hydration/nutrition consulted as above Will dc IVF on 12/02 as creat is normal. (4) Dysphagia: Plan: 2nd to #1, NPO continued, speech consulted Getting g tube feedins (5) Hypokalemia: Plan: 2.9, IV/Gtube replacement ordered IVF w/ 20meq ordered as above. Mag wnl Monitor labs on repeat/electrolyte replacement as indicated (6) Leaking percutaneous endoscopic gastrostomy (PEG) tube: Plan: as above, general surgery on consult (7) Severe protein-calorie malnutrition: Plan: as above. Admission and Anticipated Discharge Date Admission Date: November 30, 2022 Subjective Patient reports having pain around the G tube site. Nurse reports having to exchange dressing around g tube multiple times throughout the day. Review of Systems Review of Systems: All systems reviewed & are unremarkable except as noted in HPI & below Physical Exam Physical Exam: general; chronically ill appearing male, cachectic/thin, sitting up in bed, sister and mother at bedside heent: trachea midline +cervical lymphadenopathy resp: no tachypnea, coarse breath sounds cv: rrr, tachyno obvious murmur, no pitting edema/calf tenderness gi: +BS, distended, G-tube in place w/ surrounding erythema gu: no jean-baptiste msk/neuro: follows commands, no slurred speech/facial droop, generalized weakness psych: alert/oriented, cooperative with exam Results & Data Results & Data Vital Signs (Past 12 Hours) Vital Signs Temp Pulse Resp BP BP Pulse Ox O2 Del Method 12/01/22 19:34 37.6 C H 110 H 20 126/77 96 Room Air 12/01/22 14:53 37.0 C 118 H 18 148/67 H 93 Room Air 12/01/22 11:13 36.8 C 66 20 129/77 93 Room Air PG Care Time/CCT Total # of Minutes Spent Total Time Spent with Patient: Total time spent is greater than 50% in coordination of care (as documented) at patient's floor/unit and/or counseling patient: Coding Level of Care Code 25278 SUB INP/OBS CARE 3/50MIN Diagnoses Squamous cell carcinoma of hypopharynx C13.9 Hypercalcemia E83.52 Dehydration E86.0 Dysphagia R13.10 Hypokalemia E87.6 Leaking percutaneous endoscopic gastrostomy (PEG) tube K94.23 Severe protein-calorie malnutrition E43
[2022-12-01] MEDS: PIPERACILLIN/TAZOBACTAM 3.375 GM in DEXTROSE 5% 100 ML IV SCH (22:52)
--- NOTE | 2022-12-01 23:43 | Electrocardiogram Report ---
Test Reason : Blood Pressure : / mmHG Vent. Rate : 088 BPM Atrial Rate : 088 BPM P-R Int : 134 ms QRS Dur : 082 ms QT Int : 380 ms P-R-T Axes : 084 -28 018 degrees QTc Int : 459 ms Poor data quality, interpretation may be adversely affected Sinus rhythm with occasional Premature ventricular complexes Nonspecific T wave abnormality Abnormal ECG When compared with ECG of 19-OCT-2022 19:57, Premature ventricular complexes are now Present Nonspecific T wave abnormality now evident in Inferior leads Confirmed by Guzman Toro ([id number]) on 12/01/2022 11:43:02 PM Referred By: REFERRED SELF Confirmed By:Guzman Toro
[2022-12-02] MEDS: TUBE FEEDING WATER FLUSH PEG SCH ×6 (00:43→22:04)
[2022-12-02] MEDS: NUTREN LIQD 2.0 1,000 ML BAG PEG SCH ×4 (07:49→21:24)
[2022-12-02] MEDS ORDERED: POTASSIUM PHOS 3 MMOL/1 ML INFUSION IV STA (07:55)
[2022-12-02] MEDS ORDERED: POTASSIUM PHOSPHATE 21 MMOL in SODIUM CHLORIDE 0.9% 500 ML IV ONE (08:00)
[2022-12-02] MEDS: THIAMINE HCL 100 MG in SYRINGE 9 ML IV SCH (08:55)
[2022-12-02] MEDS: CLOTRIMAZOLE/BETAMETHASONE CR 15 GM TUBE EXT SCH (08:55)
[2022-12-02 09:00] LABS: Hematocrit (blood only) 26.3 % (42.0-52.0); Hemoglobin 9.1 g/dl (14.0-18.0); Mean Corpuscular Hemoglobin 32.9 pg (25.0-34.0); Mean Corpuscular Hgb Conc 34.6 g/dL (32.0-36.0); Mean Corpuscular Volume 94.9 fL (80.0-100.0); Mean Platelet Volume 9.2 fL (9.4-12.4); Platelet Count 576 K/uL (130-400); RDW Coefficient of Variation 13.7 % (11.5-14.5); RDW Standard Deviation 47.1 fL (36.4-46.3); Red Blood Count 2.77 M/uL (4.70-6.10); White Blood Count 15.99 K/ul (4.8-10.8)
[2022-12-02 09:10] LABS: BUN Creatinine Ratio 10.4 (10-20); Calcium 9.9 mg/dl (8.6-10.3); Creatinine Clr Calc Pharmacy 149.3 ml/min; Est GFR (African American) 144.8 ml/min; Est GFR (Non-African American) 124.9 ml/min; Potassium 2.7 mmol/L (3.5-5.1)
[2022-12-02 09:18] LABS: Magnesium 1.5 mg/dl (1.7-2.4); Phosphorus 1.5 mg/dl (2.5-4.9)
--- NOTE | 2022-12-02 09:43 | Surgery Progress Note ---
Date of Service December 02, 2022 Assessment & Plan (1) Gastrostomy tube in place: Plan: Patient is doing well today g-tube dressing is currently clean, button is tightened to skin. he is tolerating advancements in TEN via bolus feeds will need to continue to be diligent about keeping the gastrostomy tube tightened down to prevent further leakage as above. nursing doing much better at keeping tube tight. no leakage currently. continue to increase tube feeds. tolerating tube feeds currently. (2) Severe protein-calorie malnutrition: Admission and Anticipated Discharge Date Admission Date: November 30, 2022 Subjective Patient appears to be doing well. G-tube dressing is currently c/d/i and button appears tightened to the skin. He is tolerating bolus feeds. Physical Exam Physical Exam: awake/alert Gastrointestinal (Abdomen): Gtube dressing currently clean, button tightened to skin. some surrounding skin excoriation from prior leakage noted. Results & Data Vital Signs (Past 12 Hours) Vital Signs Temp Pulse Pulse Resp BP Pulse Ox O2 Del Method 12/02/22 08:36 87 12/02/22 08:31 138 H 12/02/22 07:50 37.5 C 113 H 18 138/83 95 Room Air 12/02/22 03:45 37 C 119 H 18 143/76 H 94 Room Air PG Care Time/CCT Total # of Minutes Spent Total Time Spent with Patient: Total time spent is greater than 50% in coordination of care (as documented) at patient's floor/unit and/or counseling patient: Coding Level of Care Code 98648 Post Operative Follow-Up Diagnoses Gastrostomy tube in place Z93.1 Severe protein-calorie malnutrition E43
--- NOTE | 2022-12-02 10:28 | Hospitalist Progress Note ---
Date of Service December 02, 2022 Assessment & Plan (1) Squamous cell carcinoma of hypopharynx: Plan: recent diagnosis, now w/ G-tube but issues w/ placement, dehydration and dysphagia from mass w/ limited ability for PO intake, recent 10 day inpatient stay [facility] [place] for dehydration and presented again dehydrated Request records from [facility] for recent admission Patient admitted as patient has been having difficulty arranging outpatient management for this cancer diagnosis. Patient also has been having issues with nutrition due to the cancer and ongoing issues with the G tube. Patient has lost a significant amount of weight in the past few months, about 45 pounds with a BMI of 17 currently. His primary issue is nutrition and finding a way for him to be able to use his G tube at home. Currently patient is having multiple amounts of discharge from it, it appears to be gastric content. Appreciate input from Gen surgery. Consulted Radiation oncology and heme oncology. In regards to possible sepsis, patient the morning after admission showed improvement of in WBC and did not show signs of sepsis. However, on 12/01, patient tina=me tachycardic and this was sustained, WBC increased slightly. Obtained blood culture and vivienne place on zosyn on 12/01 Unknown source but could be abdominal. HIGH RISK FOR REFEEDING SYNDROME and K 2.9 on admission (2) Hypercalcemia: Plan: acute resolved prior elevations, improved during this current visit ? from dehydration/malignancy/etc check vit d for completeness but suspect a IVF for dehydration as outlined above (3) Dehydration: Plan: IVF hydration/nutrition consulted as above Will dc IVF on 12/02 as creat is normal. (4) Dysphagia: Plan: 2nd to #1, NPO continued, speech consulted Getting g tube feedins able to tolerate small sips of water and giner ce (5) Hypokalemia: Plan: re feeding syndrome, will need iv replacement (6) Leaking percutaneous endoscopic gastrostomy (PEG) tube: Plan: as above, general surgery on consult, re positioned, bumper tightened and leaking stopped (7) Severe protein-calorie malnutrition: Plan: as above. Admission and Anticipated Discharge Date Admission Date: November 30, 2022 Subjective pt was seen in the presence of his mother. Physical Exam Physical Exam: Pt is awake and alert, skin dermatitis is present, able to drink small sips pain controlled Results & Data Results & Data Vital Signs (Past 12 Hours) Vital Signs Temp Pulse Pulse Resp BP Pulse Ox O2 Del Method 12/02/22 08:36 87 12/02/22 08:31 138 H 12/02/22 07:50 99.5 F 113 H 18 138/83 95 Room Air 12/02/22 03:45 98.6 F 119 H 18 143/76 H 94 Room Air PG Care Time/CCT Total # of Minutes Spent Total Time Spent with Patient: Total time spent is greater than 50% in coordination of care (as documented) at patient's floor/unit and/or counseling patient: Coding Level of Care Code 41293 SUB INP/OBS CARE 2/35MIN Diagnoses Squamous cell carcinoma of hypopharynx C13.9 Hypercalcemia E83.52 Dehydration E86.0 Dysphagia R13.10 Hypokalemia E87.6 Leaking percutaneous endoscopic gastrostomy (PEG) tube K94.23 Severe protein-calorie malnutrition E43
[2022-12-02] MEDS: PIPERACILLIN/TAZOBACTAM 3.375 GM in DEXTROSE 5% 100 ML IV SCH ×2 (11:14→18:06)
[2022-12-02] MEDS: PANTOprazole 40 MG in SYRINGE 0 ML IV SCH (11:14)
[2022-12-02] MEDS: ENOXAPARIN INJ 40 MG/0.4 ML SYR SQ SCH (20:45)
[2022-12-03] MEDS: PIPERACILLIN/TAZOBACTAM 3.375 GM in DEXTROSE 5% 100 ML IV SCH ×3 (01:26→19:04)
[2022-12-03] MEDS: MoRPHine SULFATE 2 MG/ML CARP IV PRN ×3 (01:31→21:17)
[2022-12-03] MEDS: TUBE FEEDING WATER FLUSH PEG SCH ×6 (02:06→22:10)
[2022-12-03 06:31] LABS: Magnesium 1.5 mg/dl (1.7-2.4)
[2022-12-03] MEDS: THIAMINE HCL 100 MG in SYRINGE 9 ML IV SCH (08:27)
[2022-12-03] MEDS: NUTREN LIQD 2.0 1,000 ML BAG PEG SCH ×4 (08:28→21:11)
[2022-12-03] MEDS: MAGNESIUM SULFATE / D5W 1 GM/100 ML BAG IV SCH ×4 (10:25→23:00)
[2022-12-03] MEDS: CLOTRIMAZOLE/BETAMETHASONE CR 15 GM TUBE EXT SCH (10:26)
--- NOTE | 2022-12-03 10:38 | Surgery Progress Note ---
Date of Service December 03, 2022 Assessment & Plan (1) Dermatitis associated with moisture: (2) Gastrostomy tube in place: Plan: Nursing is doing a much better job of keeping the tube tight and therefore limiting leakage. The dermatitis is improving and should continue to improve we can keep the area dry and free of gastric secretions. He is tolerating the tube feeds. Dr. Collins covering for the weekend. Admission and Anticipated Discharge Date Admission Date: November 30, 2022 Subjective Patient seen. Doing okay. No new complaints. Physical Exam Physical Exam: Alert and oriented no acute distress Tube is in place currently with no leakage. Continues to have surrounding dermatitis but improving Results & Data Vital Signs (Past 12 Hours) Vital Signs Temp Pulse Pulse Resp BP Pulse Ox O2 Del Method 12/03/22 08:18 37.1 C 95 H 18 129/82 95 Room Air 12/03/22 07:48 110 H 12/03/22 03:34 36.9 C 84 18 108/53 L 95 Room Air 12/02/22 23:07 Room Air 12/02/22 23:06 37 C 99 H 16 108/45 L 95 Room Air PG Care Time/CCT Total # of Minutes Spent Total Time Spent with Patient: Total time spent is greater than 50% in coordination of care (as documented) at patient's floor/unit and/or counseling patient: Coding Level of Care Code 85105 Post Operative Follow-Up Diagnoses Dermatitis associated with moisture L30.[address] Z93.1
[2022-12-03] MEDS: PANTOprazole 40 MG in SYRINGE 0 ML IV SCH (11:00)
[2022-12-03 11:52] LABS: Anion Gap 6 (3-11); Blood Urea Nitrogen 6 mg/dl (6-23); Calcium 9.8 mg/dl (8.6-10.3); Carbon Dioxide 29 mmol/L (21-32); Chloride 102 mmol/L (98-107); Creatinine Clr Calc Pharmacy 176.8 ml/min; Est GFR (African American) > 150.0 ml/min; Est GFR (Non-African American) 134.7 ml/min; Glucose 121 mg/dl (70-99(Fasting)); Phosphorus 2.3 mg/dl (2.5-4.9); Potassium 2.6 mmol/L (3.5-5.1); Sodium 137 mmol/L (136-145)
[2022-12-03] MEDS ORDERED: POTASSIUM PHOS 3 MMOL/1 ML INFUSION IV STA (18:25)
[2022-12-03] MEDS ORDERED: POTASSIUM CHLORIDE 20 MEQ/15 ML UDC PO STA (18:29)
--- NOTE | 2022-12-03 18:33 | Hospitalist Progress Note ---
Date of Service December 03, 2022 Assessment & Plan (1) Squamous cell carcinoma of hypopharynx: Plan: Acute recent diagnosis, with systemic complications now w/ G-tube but issues w/ placement, dehydration and dysphagia from mass w/ limited ability for PO intake, recent 10 day inpatient stay [facility] for dehydration and presented again dehydrated Gen surgery is evaluating his PEG tube daily and making adjustments. He still having some leakage of his feedings which causes skin irritation and possible infection . Consulted Radiation oncology will continue outpatient therapy once recovered heme oncology. Recommend supportive care we will continue to see his outpatient once discharged from the hospital, CT scan of the neck shows Interval enlargement of previously noted large hypopharyngeal/supraglottic mass In regards to possible sepsis, patient the morning after admission sepsis ruled out continues on intravenous Zosyn complete 1 week therapy for possibility of abdominal wall cellulitis Acute HIGH RISK FOR REFEEDING SYNDROME continue require potassium magnesium and phosphorus supplementation (2) Hypercalcemia: Plan: acute resolved prior elevations, improved during this current visit ? from dehydration/malignancy/etc check vit d for completeness but suspect a IVF for dehydration as outlined above (3) Dehydration: Plan: IVF hydration/nutrition consulted as above Currently having hydration maintained with water flushes and tube feeds (4) Dysphagia: Plan: Secondary to head neck cancer and hypopharyngeal mass able to have water and small sips Getting g tube feedings (5) Leaking percutaneous endoscopic gastrostomy (PEG) tube: Plan: as above, general surgery on consult, re positioned, bumper tightened and leaking stopped (6) Severe protein-calorie malnutrition: Plan: Secondary to cancer diagnosis and decreased oral intake patient continues to be significantly underweight with a BMI of 17 Admission and Anticipated Discharge Date Admission Date: November 30, 2022 Subjective Patient is some leaking overnight of his PEG tube. He is profoundly hypokalemic hypophosphatemic and hypomagnesemic again today due to refeeding syndrome Abdominal skin is healing although with some leakage last evening we continue to need to be vigilant and improving this. Physical Exam Physical Exam: Patient appears a bit more fatigued. His skin is still denuded but improving after adjusting the cuff and bumper on his PEG tube there is no further leaking. His abdomen is NABS soft and nontender Patient states he is got some discomfort to swallowing anything but water and is reverted to just taking in water and ice chips Results & Data Results & Data Vital Signs (Past 12 Hours) Vital Signs Temp Pulse Pulse Resp BP Pulse Ox O2 Del Method 12/03/22 17:53 110 H 12/03/22 15:47 98.8 F 97 H 18 119/72 95 Room Air 12/03/22 11:17 98.4 F 98 H 18 113/69 96 Room Air 12/03/22 08:18 98.8 F 95 H 18 129/82 95 Room Air 12/03/22 07:48 110 H Laboratory Results Reviewed chemistry Reviewed magnesium and phosphorus PG Care Time/CCT Total # of Minutes Spent Total Time Spent with Patient: Total time spent is greater than 50% in coordination of care (as documented) at patient's floor/unit and/or counseling patient: Coding Level of Care Code 33860 SUB INP/OBS CARE 2/35MIN Diagnoses Squamous cell carcinoma of hypopharynx C13.9 Hypercalcemia E83.52 Dehydration E86.0 Dysphagia R13.10 Leaking percutaneous endoscopic gastrostomy (PEG) tube K94.23 Severe protein-calorie malnutrition E43
[2022-12-03] MEDS ORDERED: POTASSIUM PHOSPHATE 15 MMOL in DEXTROSE 5% 250 ML IV ONE (18:45)
[2022-12-03] MEDS: POTASSIUM CHLORIDE 20 MEQ/15 ML UDC PO SCH (21:10)
[2022-12-03] MEDS: ENOXAPARIN INJ 40 MG/0.4 ML SYR SQ SCH (21:11)
[2022-12-04] MEDS: MAGNESIUM SULFATE / D5W 1 GM/100 ML BAG IV SCH (00:22)
[2022-12-04] MEDS: TUBE FEEDING WATER FLUSH PEG SCH ×6 (00:23→21:14)
[2022-12-04] MEDS: PIPERACILLIN/TAZOBACTAM 3.375 GM in DEXTROSE 5% 100 ML IV SCH ×3 (02:27→17:43)
[2022-12-04 08:22] LABS: BUN Creatinine Ratio 13.3 (10-20); Calcium 9.7 mg/dl (8.6-10.3); Creatinine Clr Calc Pharmacy 154.2 ml/min; Est GFR (African American) 148.7 ml/min; Est GFR (Non-African American) 128.3 ml/min; Magnesium 2.1 mg/dl (1.7-2.4); Phosphorus 3.1 mg/dl (2.5-4.9); Potassium 2.7 mmol/L (3.5-5.1)
[2022-12-04] MEDS: NUTREN LIQD 2.0 1,000 ML BAG PEG SCH ×4 (08:47→20:09)
[2022-12-04] MEDS: CLOTRIMAZOLE/BETAMETHASONE CR 15 GM TUBE EXT SCH (08:47)
[2022-12-04] MEDS: POTASSIUM CHLORIDE 20 MEQ/15 ML UDC PO SCH ×2 (08:48→20:08)
[2022-12-04] MEDS: THIAMINE HCL 100 MG TAB PO SCH (08:48)
[2022-12-04] MEDS: LANSOPRAZOLE 30 MG SOLTAB PEG SCH (08:48)
[2022-12-04] MEDS: POTASSIUM CHLORIDE / WTR 10 MEQ/100 ML PLCT IV SCH ×4 (09:17→13:01)
--- NOTE | 2022-12-04 09:36 | Surgery Progress Note ---
Date of Service December 04, 2022 Assessment & Plan (1) Gastrostomy tube in place: Plan: Continue good nursing care with keeping the G-tube tight to prevent leakage Admission and Anticipated Discharge Date Admission Date: November 30, 2022 Subjective Patient seen and examined. No abdominal pain. He is tolerating his feeds. Did have some leakage around the tube this morning. Physical Exam Gastrointestinal (Abdomen): G-tube in place, skin dermatitis surrounding the G-tube, mild leakage noted on the surrounding bandages, no active leakage at this time Results & Data Vital Signs (Past 12 Hours) Vital Signs Temp Pulse Pulse Pulse Resp BP BP 12/04/22 07:46 37.0 C 94 H 18 112/78 12/04/22 07:02 100 H 12/04/22 03:28 37.0 C 91 H 18 126/74 12/04/22 00:33 96 H 12/03/22 23:35 37.3 C 97 H 18 109/72 Pulse Ox O2 Del Method 12/04/22 07:46 96 Room Air 12/04/22 07:02 12/04/22 03:28 97 Room Air 12/04/22 00:33 12/03/22 23:35 97 Room Air PG Care Time/CCT Total # of Minutes Spent Total Time Spent with Patient: Total time spent is greater than 50% in coordination of care (as documented) at patient's floor/unit and/or counseling patient: Coding Level of Care Code 50655 Post Operative Follow-Up Diagnoses Gastrostomy tube in place Z93.1
--- NOTE | 2022-12-04 16:55 | Hospitalist Progress Note ---
Date of Service December 04, 2022 Assessment & Plan (1) Squamous cell carcinoma of hypopharynx: Plan: Acute recent diagnosis, with systemic complications now w/ G-tube but issues w/ leakage and both skin irritation but decreased delivery of hydration and nutrition, recent 10 day inpatient stay [facility] [place] for dehydration and presented again dehydrated Gen surgery is evaluating his PEG tube daily and making adjustments. He still having some leakage of his feedings which causes skin irritation and possible infection, seems to be mechanical issue of keeping bumper tight against skin to pull up internal balloon to keep tight . Consulted Radiation oncology will continue outpatient therapy once recovered heme oncology. Recommend supportive care we will continue to see his outpatient once discharged from the hospital, CT scan of the neck shows Interval enla rgement of previously noted large hypopharyngeal/supraglottic mass In regards to possible sepsis, patient the morning after admission sepsis ruled out continues on intravenous Zosyn complete 1 week therapy for possibility of abdominal wall cellulitis Acute HIGH RISK FOR REFEEDING SYNDROME continues to require potassium magnesium and phosphorus supplementation (2) Hypercalcemia: Plan: acute resolved prior elevations, improved during this current visit ? from dehydration/malignancy/etc check vit d for completeness but suspect a IVF for dehydration as outlined above (3) Dehydration: Plan: IVF hydration/nutrition consulted as above Currently having hydration maintained with water flushes and tube feeds (4) Dysphagia: Plan: Secondary to head neck cancer and hypopharyngeal mass able to have water and small sips Getting g tube feedings (5) Leaking percutaneous endoscopic gastrostomy (PEG) tube: Plan: as above, general surgery on consult, re positioned, bumper tightened and leaking stopped (6) Severe protein-calorie malnutrition: Plan: Secondary to cancer diagnosis and decreased oral intake patient continues to be significantly underweight with a BMI of 17 Admission and Anticipated Discharge Date Admission Date: November 30, 2022 Subjective Once again some minor leakage of the G-tube with good vigilance to try to keep it tight to the bumper to prevent leakage. Skin is healing. Patient is having bowel movements. Continues with profound hypokalemia from Physical Exam Physical Exam: Patient is in stable condition he is tolerating small sips Cardiac regular lungs clear Abdomen is with healing skin Results & Data Results & Data Vital Signs (Past 12 Hours) Vital Signs Temp Pulse Pulse Pulse Resp BP Pulse Ox 12/04/22 14:53 98.4 F 100 H 18 116/76 97 12/04/22 14:47 105 H 12/04/22 13:36 98.2 F 90 18 124/82 95 12/04/22 10:06 12/04/22 07:46 98.6 F 94 H 18 112/78 96 12/04/22 07:02 100 H O2 Del Method 12/04/22 14:53 Room Air 12/04/22 14:47 12/04/22 13:36 Room Air 12/04/22 10:06 Room Air 12/04/22 07:46 Room Air 12/04/22 07:02 PG Care Time/CCT Total # of Minutes Spent Total Time Spent with Patient: Total time spent is greater than 50% in coordination of care (as documented) at patient's floor/unit and/or counseling patient: Coding Level of Care Code 03177 SUB INP/OBS CARE 2MIN Diagnoses Squamous cell carcinoma of hypopharynx C13.9 Hypercalcemia E83.52 Dehydration E86.0 Dysphagia R13.10 Leaking percutaneous endoscopic gastrostomy (PEG) tube K94.23 Severe protein-calorie malnutrition E43
[2022-12-04] MEDS: ENOXAPARIN INJ 40 MG/0.4 ML SYR SQ SCH (20:08)
[2022-12-05] MEDS: TUBE FEEDING WATER FLUSH PEG SCH ×6 (01:33→21:23)
[2022-12-05] MEDS: PIPERACILLIN/TAZOBACTAM 3.375 GM in DEXTROSE 5% 100 ML IV SCH ×3 (02:22→18:00)
--- NOTE | 2022-12-05 05:51 | Surgery Progress Note ---
Date of Service December 05, 2022 Assessment & Plan (1) Gastrostomy tube in place: Plan: Previous issues were noted with significant leakage of G-tube contents This is markedly improved with tightening the G-tube button and should continue to be employed Bolus tube feeds have been initiated versus continuous which also seems to be helping the patient's underlying situation and should continue Admission and Anticipated Discharge Date Admission Date: November 30, 2022 Subjective Patient is resting comfortably in bed. He offers no complaints at this time. He has not noticed any significant leakage around his G-tube. I discussed with the nurse attending to the patient. (This nurse has had the patient over the past several nights) he notes that there has been marked improvement in the patient's G-tube leakage since adjustments to the G-tube button have been made. He did note that there was significant leakage several days ago but now there is minimal to no leakage. Physical Exam Physical Exam: G-tube was examined. There is no active leakage at the present time. There is dermatitis surrounding the G-tube insertion site. (RN notes that this was present previously and felt to be due to previous leakage from G-tube contents) Results & Data Vital Signs (Past 12 Hours) Vital Signs Temp Pulse Resp BP BP Pulse Ox O2 Del Method 12/05/22 03:55 36.9 C 103 H 18 133/80 93 Room Air 12/04/22 22:21 37.4 C 105 H 18 130/77 96 Room Air 12/04/22 22:48 Room Air 12/04/22 19:35 37.2 C 99 H 18 121/77 96 Room Air PG Care Time/CCT Total # of Minutes Spent Total Time Spent with Patient: Total time spent is greater than 50% in coordination of care (as documented) at patient's floor/unit and/or counseling patient: Coding Level of Care Code 80593 SUB INP/OBS CARE /25MIN Diagnoses Gastrostomy tube in place Z93.1
[2022-12-05 07:12] LABS: Anion Gap 5 (3-11); BUN Creatinine Ratio 15.4 (10-20); Blood Urea Nitrogen 6 mg/dl (6-23); Carbon Dioxide 30 mmol/L (21-32); Chloride 101 mmol/L (98-107); Creatinine Clr Calc Pharmacy 174.9 ml/min; Est GFR (African American) > 150.0 ml/min; Est GFR (Non-African American) 136.1 ml/min; Glucose 102 mg/dl (70-99(Fasting)); Magnesium 1.7 mg/dl (1.7-2.4); Phosphorus 2.5 mg/dl (2.5-4.9); Potassium 2.9 mmol/L (3.5-5.1); Sodium 136 mmol/L (136-145)
[2022-12-05] MEDS: NUTREN LIQD 2.0 1,000 ML BAG PEG SCH ×4 (08:07→20:16)
[2022-12-05] MEDS: LANSOPRAZOLE 30 MG SOLTAB PEG SCH (08:08)
[2022-12-05] MEDS: THIAMINE HCL 100 MG TAB PO SCH (08:08)
[2022-12-05] MEDS: POTASSIUM CHLORIDE 20 MEQ/15 ML UDC PO SCH ×2 (08:08→21:28)
[2022-12-05] MEDS: CLOTRIMAZOLE/BETAMETHASONE CR 15 GM TUBE EXT SCH (08:08)
[2022-12-05] MEDS: MoRPHine SULFATE 2 MG/ML CARP IV PRN ×2 (08:22→12:22)
[2022-12-05] MEDS ORDERED: aMILoride HCL 5 MG TAB PO SCH (09:00)
[2022-12-05] MEDS: MAGNESIUM SULFATE / D5W 1 GM/100 ML BAG IV SCH ×3 (09:36→13:42)
[2022-12-05] MEDS: POTASSIUM CHLORIDE / WTR 10 MEQ/100 ML PLCT IV SCH ×3 (09:36→12:05)
[2022-12-05] MEDS ORDERED: LORazepam 0.5 MG TAB PO PRN (15:44)
--- NOTE | 2022-12-05 15:49 | Hospitalist Progress Note ---
Date of Service December 05, 2022 Assessment & Plan (1) Squamous cell carcinoma of hypopharynx: Plan: Acute recent diagnosis, with systemic complications now w/ G-tube but issues w/ leakage and both skin irritation but decreased delivery of hydration and nutrition, recent 10 day inpatient stay [facility] [place] for dehydration and presented again dehydrated Gen surgery is evaluating his PEG tube daily and making adjustments. He still having some leakage of his feedings which causes skin irritation and possible infection, seems to be mechanical issue of keeping bumper tight against skin to pull up internal balloon to keep tight . Consulted Radiation oncology will continue outpatient therapy once recovered heme oncology. Recommend supportive care we will continue to see his outpatient once discharged from the hospital, CT scan of the neck shows Interval enla rgement of previously noted large hypopharyngeal/supraglottic mass In regards to possible sepsis, patient the morning after admission sepsis ruled out continues on intravenous Zosyn complete 1 week therapy for possibility of abdominal wall cellulitis Pt now with encephalopahty, no Haed CT that I can see, will image, check UA, calcium is normal, concerning change. Acute HIGH RISK FOR REFEEDING SYNDROME continues to require potassium magnesium and phosphorus supplementation (2) Hypercalcemia: Plan: acute resolved, now confused but calcium is normal consider zolnedronic acid (3) Dehydration: Plan: acute self limited IVF hydration/nutrition consulted as above Currently having hydration maintained with water flushes and tube feeds (4) Dysphagia: Plan: acute on chronic Secondary to head neck cancer and hypopharyngeal mass able to have water and small sips Getting g tube feedings (5) Severe protein-calorie malnutrition: Plan: Secondary to cancer diagnosis and decreased oral intake patient continues to be significantly underweight with a BMI of 17 Admission and Anticipated Discharge Date Admission Date: November 30, 2022 Subjective pt still with intermittent leaking of GT, now with some confusion and hallucinations not troubling but overall the pt just seems a bit off, attempted mri brain insuccessfully, now will try CT with ativan before, check urine culture but is on Zosyn Physical Exam Physical Exam: pleasant hallucinations, pressured speech no focal neurologic changes still some GT leakage non tender abdomen Results & Data Results & Data Vital Signs (Past 12 Hours) Vital Signs Temp Pulse Pulse Pulse Resp BP BP 12/05/22 15:31 94 H 12/05/22 15:16 98.4 F 97 H 18 118/75 12/05/22 12:00 98.1 F 91 H 18 124/82 12/05/22 11:06 12/05/22 07:32 98.1 F 88 136/82 12/05/22 07:22 95 H 12/05/22 03:55 98.4 F 103 H 18 133/80 Pulse Ox O2 Del Method 12/05/22 15:31 12/05/22 15:16 97 Room Air 12/05/22 12:00 96 Room Air 12/05/22 11:06 Room Air 12/05/22 07:32 96 Room Air 12/05/22 07:22 12/05/22 03:55 93 Room Air Laboratory Results Reviewed Chem-7 Reviewed magnesium, phosphorus, calcium PG Care Time/CCT Total # of Minutes Spent Total Time Spent with Patient: Total time spent is greater than 50% in coordination of care (as documented) at patient's floor/unit and/or counseling patient: Coding Level of Care Code 42282 SUB INP/OBS CARE 3/50MIN Diagnoses Squamous cell carcinoma of hypopharynx C13.9 Hypercalcemia E83.52 Dehydration E86.0 Dysphagia R13.10 Severe protein-calorie malnutrition E43
[2022-12-05] MEDS ORDERED: OLANZapine ZYDIS 5 MG ORALLY DIS. TAB PO ONE (15:57)
[2022-12-05] MEDS: LORazepam 2 MG/1 ML VIAL IV PRN (16:57)
[2022-12-05] MEDS ORDERED: OPTIRAY 350 100ml IV ONE (17:37)
[2022-12-05] MEDS ORDERED: dexAMETHasone 6 MG in SYRINGE 0 ML IV ONE (18:15)
[2022-12-05] MEDS ORDERED: RACEPINEPHRINE 2.25% NEBU SOLN 0.5 ML VIAL NEB PRN (18:21)
--- NOTE | 2022-12-05 18:27 | Communication Note ---
Date of Service: December 05, 2022 pt is sedate as expected from Ativan pre Ct head now with upper airway sounds from secretions not clearing, pt is awake just sleepy will attempt to NT suction, add oral atropine and racemic epi neb in a emergency move to PCU and night icu team notified still no direct reason for encephalopathy
--- NOTE | 2022-12-05 20:43 | CT Scan Report ---
CT SCAN OF THE BRAIN COMBO CLINICAL HISTORY: Neck mass. Metastatic survey. COMPARISON STUDY: CT of the brain dated 08/12/2015. TECHNIQUE: Axial CT scan of the brain is performed from the vertex to the skull base before and follo wing the IV administration of 87 cc of Optiray 350. IV contrast was administered without complication . A dose lowering technique was utilized adhering to the principles of ALARA. CT DOSE: 1228.53 mGy.cm FINDINGS: Brain parenchyma: There is age-related involutional change noting mild subcortical and periventricula r microangiopathic disease. There is no hemorrhage, mass effect, or evidence of acute territorial isc hemia by CT criteria. There is no evidence of enhancing lesion on the postcontrast images. Boyle-white matter differentiation is preserved. No extra-axial fluid collection is seen. Ventricles, sulci, cisterns: Prominent secondary to involutional change. Intracranial vasculature: There is atherosclerotic calcification of the cavernous carotid and vertebr al arteries. Calvarium: Unremarkable. Sinuses and mastoids: The visualized paranasal sinuses are clear. The mastoid air cells are well pneu matized. Cerumen is noted in the external auditory canals. Orbits: The bony orbits are grossly intact. IMPRESSION: There is no evidence of hemorrhage, enhancing mass, or acute territorial ischemia by CT fang ghosh. ACT 112: Negative or not required by law. Electronically signed by: Pratik Prajapati M.D. 12/05/2022 8:42 PM
[2022-12-05] MEDS: ENOXAPARIN INJ 40 MG/0.4 ML SYR SQ SCH (21:24)
[2022-12-06] MEDS: TUBE FEEDING WATER FLUSH PEG SCH ×6 (01:46→19:58)
[2022-12-06] MEDS: PIPERACILLIN/TAZOBACTAM 3.375 GM in DEXTROSE 5% 100 ML IV SCH ×3 (02:01→17:57)
[2022-12-06] MEDS: LORazepam 2 MG/1 ML VIAL IV PRN (04:19)
[2022-12-06] MEDS: POTASSIUM CHLORIDE 20 MEQ/15 ML UDC PO SCH ×2 (08:31→19:57)
[2022-12-06] MEDS: LANSOPRAZOLE 30 MG SOLTAB PEG SCH (08:31)
[2022-12-06] MEDS: THIAMINE HCL 100 MG TAB PO SCH (08:31)
[2022-12-06] MEDS: NUTREN LIQD 2.0 1,000 ML BAG PEG SCH ×4 (08:52→19:59)
--- NOTE | 2022-12-06 09:01 | Surgery Progress Note ---
Date of Service December 06, 2022 Assessment & Plan (1) Feeding tube dysfunction: Plan: Doing much better now that nursing is keeping the tube tight. There is no drainage and the skin looks much better. He is tolerating bolus tube feeds. Regarding the confusion CT scan was negative. We will order an ammonia level with his history of alcoholism. We will continue to follow along from the periphery (2) Dermatitis associated with moisture: (3) Gastrostomy tube in place: (4) Severe protein-calorie malnutrition: (5) Hypopharyngeal cancer: (6) Delirium: Admission and Anticipated Discharge Date Admission Date: November 30, 2022 Subjective Patient seen with nurse at bedside. Was transferred last evening because of confusion of unknown etiology. Patient is awake and alert but he is confused. He is not complaining or does not appear to be in distress. There was a question as to a lesion with drainage of his scrotum. Physical Exam Physical Exam: Awake alert but confused. He is not in distress His PEG tube was tightened down there is no leakage. The dermatitis is dramatically improved I did examine his penis and testicles and scrotum and I do not see any skin breakdown lesions or drainage Results & Data Vital Signs (Past 12 Hours) Vital Signs Temp Pulse Pulse Resp BP Pulse Ox O2 Del Method 12/06/22 07:40 97 H 24 139/102 H 95 Room Air 12/06/22 03:43 36.6 C 102 H 29 H 131/99 93 Room Air 12/05/22 23:10 37.0 C 104 H 25 H 150/93 H 96 Room Air 12/05/22 23:07 113 H 12/05/22 23:07 Room Air PG Care Time/CCT Total # of Minutes Spent Total Time Spent with Patient: Total time spent is greater than 50% in coordination of care (as documented) at patient's floor/unit and/or counseling patient: Coding Level of Care Code 16816 Post Operative Follow-Up Diagnoses Feeding tube dysfunction T85.598A Dermatitis associated with moisture L30.[address] Z93.1 Severe protein-calorie malnutrition E43 Hypopharyngeal cancer C13.9 Delirium R41.0
[2022-12-06 11:00] LABS: Anion Gap 6 (3-11); Blood Urea Nitrogen 6 mg/dl (6-23); Calcium 10.8 mg/dl (8.6-10.3); Carbon Dioxide 26 mmol/L (21-32); Chloride 101 mmol/L (98-107); Creatinine Clr Calc Pharmacy 166.3 ml/min; Est GFR (African American) > 150.0 ml/min; Est GFR (Non-African American) 134.7 ml/min; Glucose 135 mg/dl (70-99(Fasting)); Magnesium 1.9 mg/dl (1.7-2.4); Phosphorus 3.1 mg/dl (2.5-4.9); Potassium 4.6 mmol/L (3.5-5.1); Sodium 133 mmol/L (136-145)
[2022-12-06] MEDS ORDERED: FUROSEMIDE 40 MG/4 ML VIAL IV ONE (11:50)
[2022-12-06] MEDS: CLOTRIMAZOLE/BETAMETHASONE CR 15 GM TUBE EXT SCH (11:57)
[2022-12-06] MEDS ORDERED: SODIUM CHLORIDE 0.9% 1000ML 1,000 ML IV SCH (12:00)
[2022-12-06] MEDS ORDERED: ZOLEDRONIC ACID 4 MG in 0.9 % SODIUM CHLORIDE 100 ML IV ONE (12:00)
--- NOTE | 2022-12-06 12:15 | Hospitalist Progress Note ---
Date of Service December 06, 2022 Assessment & Plan (1) Squamous cell carcinoma of hypopharynx: Plan: Acute recent diagnosis, with systemic complications now w/ G-tube but issues w/ leakage and both skin irritation but decreased delivery of hydration and nutrition, recent 10 day inpatient stay [facility] [place] for dehydration and presented again dehydrated Gen surgery is evaluating his PEG tube daily and making adjustments. He still having some leakage of his feedings which causes skin irritation and possible infection, seems to be mechanical issue of keeping bumper tight against skin to pull up internal balloon to keep tight . Consulted Radiation oncology will continue outpatient therapy once recovered, but recovery is now in question as having some airway issues heme oncology. Recommend supportive care, CT scan of the neck shows Interval enlargement of previously noted large hypopharyngeal/supraglottic mass In regards to possible sepsis, patient the morning after admission sepsis ruled out continues on intravenous Zosyn to treat abdominal wall cellulitis Pt now with encephalopathy, Head CT without metiastiatic disease, Calcium is elevated 12/06, treat with ivf lasix and zolendronic acid Acute REFEEDING SYNDROME finally seems stable (2) Hypercalcemia: Plan: acute metabollic encephalopahty saline/lasix zolnedronic acid (3) Dysphagia: Plan: acute on chronic, severe Secondary to head neck cancer and hypopharyngeal mass able to have water and small sips did give one dose iv decadron in pm 12/05, was confused prior to this, oral atropine and prn racemic epi nebs Getting g tube feedings (4) Severe protein-calorie malnutrition: Plan: Secondary to cancer diagnosis and decreased oral intake patient continues to be significantly underweight with a BMI of 17 Admission and Anticipated Discharge Date Admission Date: November 30, 2022 Subjective This pt is confused, intermittently sleeping, did have ativan, family at bedside, pt has said he just wants to go home, I told him he would at home, he did not respond to this 12/06/22, did have elevated calcium, will treat in hopes that this helps his confusion Physical Exam Physical Exam: pt is able to be awakened he is with mild respiratory distress skin on abdomen is slowly improving Results & Data Results & Data Vital Signs (Past 12 Hours) Vital Signs Temp Pulse Pulse Resp BP Pulse Ox O2 Del Method 12/06/22 09:00 97 H 12/06/22 09:00 Room Air 12/06/22 07:40 97 H 24 139/102 H 95 Room Air 12/06/22 03:43 97.9 F 102 H 29 H 131/99 93 Room Air Laboratory Results reviewed chem 7 reviewed phos/mag PG Care Time/CCT Total # of Minutes Spent Total Time Spent with Patient: Total time spent is greater than 50% in coordination of care (as documented) at patient's floor/unit and/or counseling patient: Coding Level of Care Code 12458 SUB INP/OBS CARE 3/50MIN Diagnoses Squamous cell carcinoma of hypopharynx C13.9 Hypercalcemia E83.52 Dysphagia R13.10 Severe protein-calorie malnutrition E43
--- NOTE | 2022-12-06 14:10 | Palliative Care Consultation ---
Date of Consultation December 06, 2022 Assessment & Plan (1) Pain: with hypopharyngeal carcinoma He had two doses of morphine yesterday. He is not able to communicate pain needs today. He appears comfortable at rest. Per RN, he has not shown any signs of pain and tolerates routine care. Continue prn morphine (2) Delirium: with hypocalcemia, medications, hospitalization hospitalist team managing electrolytes (3) Palliative care encounter: I met with Bobo's mother, Raiza Sharif, at bedside. She tells me that Bobo has been living with her and she suspects that he was aware that something was wrong for some time prior to his diagnosis. She says that he has never really talked about what he would want for his care if he were seriously ill. He did mention once that he would want her to have him cremated when he dies. She understands that his cancer is very advanced and that he is very frail. Even with management of his current medical problems, he is likely not a candidate for aggressive cancer treatment. She wants to respect his wish to be at home. She has multiple family members who live nearby to support her. She also has a sister who works in hospice. We discussed hospice care and support available. We discussed coverage for DME, medications, nursing care covered under hospice. She feels confident that, with the support network she has and with hospice care, she can care for him at home. Answered her questions about medications and symptom management. Notified Dr. Nam and case management about her wish to take him home with hospice care. We discussed code status. He is currently a full code. She understands what would be involved with resuscitation and that it could cause harm to Bobo. She also understands that it is extremely unlikely to have the desired outcome. She would not want him to be injured or on meterman vent support. She does not want him to be resuscitated. Per our discussion, code status was changed to DNR. History of Present Illness Reason for Consultation: goals of care Requesting Physician: Dr. Nam Attending Physician: Tushar Nam MD History of Present Illness 52 yo gentleman with recent diagnosis of SCC of the hypopharynx. He had recent hospitalization at [facility] and has had PEG tube placement for nutrition but had complications with feeding tube and was admitted for management of refeeding syndrome and electrolyte abnormalities. He has had new onset of confusion with hypercalcemia. He has been repeatedly saying that he wants to go home. He is currently lethargic and confused. He is not able to participate in goals of care discussion. His mother, with whom he lives, is at bedside. Allergies Allergy/AdvReac Type Severity Reaction Status Date / Time No Known Drug Allergies Allergy Verified 11/18/22 06:46 Home Medications Medication Instructions Recorded Confirmed Type mupirocin 2 % topical ointment 1 applic topical TID #22 grams 11/28/22 11/29/22 Rx amoxicillin 600 mg-potassium 0 ml PO UD 11/29/22 11/29/22 History clavulanate 42.9 mg/5 mL oral suspension folic acid 1 mg tablet 1 mg PO DAILY 11/29/22 11/29/22 History oxycodone 5 mg/5 mL oral solution 5 mg PO Q4 PRN mod-severe pain 11/29/22 11/29/22 History thiamine HCl (vitamin B1) 100 mg 100 mg PO DAILY 11/29/22 11/29/22 History tablet Patient History Medical History Alcoholism pt states he currently is drinking 1 beer per week per compound filler call History of asthma A CHILD Mass of hypopharynx Oropharyngeal mass SCC (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 Surgical History Gastrostomy tube in place (11/18/22) p Laparoscopic Assiststed Placement(Not Applicable) - Wilbur Kim DO s Gastrostomy Tube(Not Applicable) - Wilbur Kim DO History of laryngoscopy Direct laryngoscopy with biopsy of pharyngeal lesion History of wisdom tooth extraction Family History Mother Hypertension Diabetes Father Cancer Other No family history of adverse response to anesthesia No significant family history Social History Smoking Status: Former smoker Tobacco Type: Cigarettes packs per day: 1; Second Hand Exposure: No; Hx Alcohol Use: No Hx Substance Use: No Preferred Language: Spanish Communication Ability: Effective Visual Impairment: No Limitations Business Division Chair Required: No Beliefs That Will Affect Care: None marital status: Single Current Living Situation: Family Current Living Situation Comment: WITH MOTHER current occupational status: unemployed How many Children do You have: 0 Other Information That Helps Us Care for You: No Feels Safe at Home: Yes Safety Concerns: Feels Safe At This Time during the past year weight has: decreased > 10 lbs Assistive Devices: None Review of Systems Review of Systems: Unobtainable due to cognitive status Physical Exam Constitutional: + ill appearing and + thin Respiratory: normal respiratory effort; no labored breathing Musculoskeletal: Extremities: + muscle atrophy Neurologic: Speech / Cognition: + abnormal cognition Genitourinary: catheter Results & Data Vital Signs (Past 12 Hours) Vital Signs Temp Pulse Pulse Resp BP Pulse Ox O2 Del Method 12/06/22 12:09 98.4 F 99 H 18 129/78 92 Room Air 12/06/22 09:00 97 H 12/06/22 09:00 Room Air 12/06/22 07:40 97 H 24 139/102 H 95 Room Air 12/06/22 03:43 97.9 F 102 H 29 H 131/99 93 Room Air PG Care Time/CCT Total # of Minutes Spent Total Time Spent: 64 Total Time Spent with Patient: Total time spent is greater than 50% in coordination of care (as documented) at patient's floor/unit and/or counseling patient: [id number] goals of care, hospice, code status, family education and support, coordination of care Coding Level of Care Code 85795 INT INP/OBS CARE 2/55MIN Diagnoses Pain R52 Delirium R41.0 Palliative care encounter Z51.5
--- NOTE | 2022-12-06 16:27 | Hematology/Oncology Prog Note ---
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 I had initially evaluated patient early last week After he had presented to [facility] with leaking malfunctioning PEG tube. At that time plan was for him to follow-up outpatient for possible concurrent chemoradiation treatment. Patient was scheduled to be evaluated by ENT at [facility] [place] this week to assess whether he would be a candidate upfront surgery possibly followed by adjuvant radiation/chemotherapy treatment. However, was notified by hospitalist that patient's clinical condition continues to decline with altered mental status. Labs obtained today showed hypercalcemia with corrected calcium level of 11.8 for which he received Zometa today. Although patient could not recall this discussion, patient's nurse indicates that discussion was held with palliative care and patient and family agreed to go ahead with home hospice. Oncology will therefore sign off at this time. Please feel free to call if you have any further questions Admission and Anticipated Discharge Date Admission Date: November 30, 2022 Subjective He denied any new issues. Was alert and oriented x3 Results & Data Vital Signs (Past 12 Hours) Vital Signs Temp Pulse Pulse Resp BP Pulse Ox O2 Del Method 12/06/22 12:09 36.9 C 99 H 18 129/78 92 Room Air 12/06/22 09:00 97 H 12/06/22 09:00 Room Air 12/06/22 07:40 97 H 24 139/102 H 95 Room Air
[2022-12-06] MEDS: ENOXAPARIN INJ 40 MG/0.4 ML SYR SQ SCH (19:58)
[2022-12-07] MEDS: PIPERACILLIN/TAZOBACTAM 3.375 GM in DEXTROSE 5% 100 ML IV SCH (02:51)
[2022-12-07] MEDS: TUBE FEEDING WATER FLUSH PEG SCH ×6 (02:51→19:37)
[2022-12-07] MEDS: NUTREN LIQD 2.0 1,000 ML BAG PEG SCH ×4 (08:49→19:36)
[2022-12-07] MEDS: CLOTRIMAZOLE/BETAMETHASONE CR 15 GM TUBE EXT SCH (09:54)
[2022-12-07 12:05] LABS: Hematocrit (blood only) 27.8 % (42.0-52.0); Hemoglobin 9.8 g/dl (14.0-18.0); Mean Corpuscular Hemoglobin 32.6 pg (25.0-34.0); Mean Corpuscular Hgb Conc 35.3 g/dL (32.0-36.0); Mean Corpuscular Volume 92.4 fL (80.0-100.0); Mean Platelet Volume 9.2 fL (9.4-12.4); Platelet Count 801 K/uL (130-400); RDW Coefficient of Variation 13.7 % (11.5-14.5); RDW Standard Deviation 45.4 fL (36.4-46.3); Red Blood Count 3.01 M/uL (4.70-6.10)
[2022-12-07] MEDS: POTASSIUM CHLORIDE 20 MEQ/15 ML UDC PO SCH (12:27)
[2022-12-07] MEDS: THIAMINE HCL 100 MG TAB PEG SCH (12:27)
[2022-12-07] MEDS: LANSOPRAZOLE 30 MG SOLTAB PEG SCH ×2 (12:28→19:34)
--- NOTE | 2022-12-07 13:03 | Palliative Care Progress Note ---
Date of Service December 07, 2022 Assessment & Plan (1) Palliative care encounter: Plan: I talked with Bobo about my discussion with his mother yesterday and his cognitive impairment. We discussed plan for discharge home with hospice per his wish to go home. I explained focus of comfort and symptom management on hospice and asked him what he thought about that. He asked me what prognosis would be with hospice. I told him that I expected that he would survive for weeks to a few months. We discussed option for continuing cancer treatment as prior to admission. We talked about concern that with his severe protein calorie malnutrition, he could potentially have a difficult time tolerating treatment and that some people are not able to receive treatment with severely impaired nutritional and functional status. He expressed wish to speak with oncology to discuss options and prognosis with treatment. I notified Dr. Nam who spoke with both medical and radiation oncology. They felt that he had potential for cure with treatment which may involve tracheostomy, transfer to tertiary care, surgery and chemoradiation. I reviewed this with Bobo, his mother and sister, Nicol, at bedside. He tells me that he understands and would like to pursue further cancer treatment. We talked about whether there were limits to what he would be willing to go through and he told me that he did not think that there were. We discussed code status, including what would be involved with full resuscitation and statistical outcomes. He felt that if he were not able to be at his present level of function after resuscitation, he would not want to go through that. He confirms that his mother would make decisions on his behalf if he were unable to do so. At this time he will remain DNR with goal for full cancer treatment. Discussed with Dr. Nam, Dr. Scott, RN and case management. Admission and Anticipated Discharge Date Admission Date: November 30, 2022 Subjective More alert with better mentation today. Denies pain. Complains of excessive oral secretions which he is spitting in emesis basin. Review of Systems Review of Systems: ESAS Pain 0/3 Dyspnea 0/3 Nausea 0/3 Drowsiness 0/3 Physical Exam Constitutional: + ill appearing and + thin ENMT: frothy white oral secretions Respiratory: normal respiratory effort; no labored breathing Cardiovascular: Rate/Rhythm: regular rate and regular rhythm Gastrointestinal (Abdomen): PEG tube with surrounding erythema Musculoskeletal: Extremities: + muscle atrophy Neurologic: Speech / Cognition: normal cognition Results & Data Vital Signs (Past 12 Hours) Vital Signs Temp Pulse Pulse Pulse Resp BP BP 12/07/22 11:07 98.9 F 116 H 24 118/77 12/07/22 08:00 93 H 12/07/22 08:00 12/07/22 07:57 98.8 F 91 H 97 H 18 136/82 98/78 L 12/07/22 07:38 98.8 F 97 H 18 98/78 L 12/07/22 02:33 97.7 F 96 H 20 124/86 Pulse Ox O2 Del Method 12/07/22 11:07 98 Room Air 12/07/22 08:00 12/07/22 08:00 Room Air 12/07/22 07:57 98 12/07/22 07:38 98 Room Air 12/07/22 02:33 92 Room Air PG Care Time/CCT Total # of Minutes Spent Total Time Spent: 90 Total Time Spent with Patient: Total time spent is greater than 50% in coordination of care (as documented) at patient's floor/unit and/or counseling patient: goals of care, code status, prognosis, coordination of care Coding Level of Care Code 37803 SUB INP/OBS CARE 3/50MIN Diagnoses Palliative care encounter Z51.5
[2022-12-07] MEDS: AMOXICILLIN/CLAVULANATE SUSP 250/62.5MG 5ML 75ML BTL PO SCH ×2 (13:44→21:40)
[2022-12-07] MEDS: MoRPHine SULFATE 2 MG/ML CARP IV PRN ×2 (13:55→23:21)
[2022-12-07] MEDS ORDERED: FUROSEMIDE INJ 20 MG/2 ML VIAL IV ONE (16:26)
[2022-12-07] MEDS ORDERED: SODIUM CHLORIDE 0.9% 500 ML IV SCH (16:30)
--- NOTE | 2022-12-07 16:50 | Hospitalist Progress Note ---
Date of Service December 07, 2022 Assessment & Plan (1) Squamous cell carcinoma of hypopharynx: Plan: Acute recent diagnosis, with systemic complications now w/ G-tube but issues w/ leakage and both skin irritation but decreased delivery of hydration and nutrition, [place] 10 [place] [facility] [place] and presented again dehydrated Has tolerated escalation of tube feeds and electrolytes replace with refeeding issues Gen surgery is evaluating his PEG tube daily and making adjustments. He still having some leakage of his feedings which causes skin irritation and possible infection, seems to be mechanical issue of keeping bumper tight against skin to pull up internal balloon to keep tight heme oncology. has reviewed with ENT, is candidate for chemo/XRT. will continue to explore if able to get tracheostomy In regards to possible sepsis, patient the morning after admission sepsis ruled out continues on intravenous Zosyn to treat abdominal wall cellulitis Pt now with metabolic encephalopathy secondary to hypercalcemia, Head CT without metastatic disease, Calcium is elevated 12/06, treat with ivf lasix and zolendronic acid, had clearing of encephalopathy, use saline and lasix again 12/07/22 Acute REFEEDING SYNDROME finally seems stable (2) Hypercalcemia: Plan: acute metabollic encephalopahty saline/lasix zolnedronic acid (3) Dysphagia: Plan: acute on chronic, severe Secondary to head neck cancer and hypopharyngeal mass able to have water and small sips did give one dose iv decadron in pm 12/05, was confused prior to this, oral atropine and prn racemic epi nebs Getting g tube feedings (4) Severe protein-calorie malnutrition: Plan: Secondary to cancer diagnosis and decreased oral intake patient continues to be significantly underweight with a BMI of 17 Admission and Anticipated Discharge Date Admission Date: November 30, 2022 Subjective pt is more awake and alert, is now endorsing wanting to have all treatment opinions rendered Physical Exam Physical Exam: pt is awake and alert still spitting secretions no stridor decreased breath sounds Results & Data Results & Data Vital Signs (Past 12 Hours) Vital Signs Temp Pulse Pulse Pulse Resp BP BP 12/07/22 15:13 98.2 F 110 H 24 109/71 12/07/22 11:07 98.9 F 116 H 24 118/77 12/07/22 08:00 93 H 12/07/22 08:00 12/07/22 07:57 98.8 F 91 H 97 H 18 136/82 98/78 L 12/07/22 07:38 98.8 F 97 H 18 98/78 L Pulse Ox O2 Del Method 12/07/22 15:13 97 Room Air 12/07/22 11:07 98 Room Air 12/07/22 08:00 12/07/22 08:00 Room Air 12/07/22 07:57 98 12/07/22 07:38 98 Room Air Laboratory Results reviewed cbc reviewed calcium PG Care Time/CCT Total # of Minutes Spent Total Time Spent with Patient: Total time spent is greater than 50% in coordination of care (as documented) at patient's floor/unit and/or counseling patient: Coding Level of Care Code 52533 SUB INP/OBS CARE 2/35MIN Diagnoses Squamous cell carcinoma of hypopharynx C13.9 Hypercalcemia E83.52 Dysphagia R13.10 Severe protein-calorie malnutrition E43
--- NOTE | 2022-12-07 17:23 | Hematology/Oncology Prog Note ---
Date of Service December 07, 2022 Assessment & Plan (1) Squamous cell carcinoma of hypopharynx: (2) Leaking percutaneous endoscopic gastrostomy (PEG) tube: (3) Severe protein-calorie malnutrition: Plan Suspect that mental status change most likely due to hypercalcemia which has now improved. Patient now wants to receive systemic treatment for malignancy. Per discussion with ENT, patient was already evaluated by Dr. Pearson at [facility] who felt he was not a good surgical candidate. We will attempt to obtain those records. If this is the case, he would require concurrent chemoradiation treatment as early as recommended. Anticipate starting chemoradiation treatment upon discharge from hospital. Admission and Anticipated Discharge Date Admission Date: November 30, 2022 Subjective Patient is less confused today. Indicates that he wants to receive treatment for head and neck cancer and does not want hospice Results & Data Vital Signs (Past 12 Hours) Vital Signs Temp Pulse Pulse Pulse Resp BP BP 12/07/22 15:13 36.8 C 110 H 24 109/71 12/07/22 11:07 37.2 C 116 H 24 118/77 12/07/22 08:00 93 H 12/07/22 08:00 12/07/22 07:57 37.1 C 91 H 97 H 18 136/82 98/78 L 12/07/22 07:38 37.1 C 97 H 18 98/78 L Pulse Ox O2 Del Method 12/07/22 15:13 97 Room Air 12/07/22 11:07 98 Room Air 12/07/22 08:00 12/07/22 08:00 Room Air 12/07/22 07:57 98 12/07/22 07:38 98 Room Air
[2022-12-07] MEDS: ENOXAPARIN INJ 40 MG/0.4 ML SYR SQ SCH (19:34)
[2022-12-08] MEDS: TUBE FEEDING WATER FLUSH PEG SCH ×6 (01:26→20:57)
[2022-12-08] MEDS: AMOXICILLIN/CLAVULANATE SUSP 250/62.5MG 5ML 75ML BTL PO SCH ×3 (04:47→20:56)
[2022-12-08] MEDS: MoRPHine SULFATE 2 MG/ML CARP IV PRN ×2 (04:57→09:59)
[2022-12-08 07:12] LABS: Hematocrit (blood only) 27.1 % (42.0-52.0); Hemoglobin 9.6 g/dl (14.0-18.0); Mean Corpuscular Hemoglobin 32.7 pg (25.0-34.0); Mean Corpuscular Hgb Conc 35.4 g/dL (32.0-36.0); Mean Corpuscular Volume 92.2 fL (80.0-100.0); Mean Platelet Volume 9.3 fL (9.4-12.4); Platelet Count 761 K/uL (130-400); RDW Coefficient of Variation 13.8 % (11.5-14.5); RDW Standard Deviation 45.8 fL (36.4-46.3); Red Blood Count 2.94 M/uL (4.70-6.10); White Blood Count 12.69 K/ul (4.8-10.8)
[2022-12-08 07:26] LABS: Alanine Aminotransferase 51 U/L (7-52); Albumin Globulin Ratio 0.9 (0.9-2); Alkaline Phosphatase 41 U/L (34-104); Anion Gap 7 (3-11); Aspartate Aminotransferase 32 U/L (13-39); BUN Creatinine Ratio 35.3 (10-20); Bilirubin,Total 0.3 mg/dl (0.2-1.0); Blood Urea Nitrogen 12 mg/dl (6-23); Calcium 9.2 mg/dl (8.6-10.3); Carbon Dioxide 25 mmol/L (21-32); Chloride 99 mmol/L (98-107); Creatinine Clr Calc Pharmacy 200.2 ml/min; Est GFR (African American) > 150.0 ml/min; Globulin 3.5 gm/dl (2.5-4.0); Glucose 97 mg/dl (70-99(Fasting)); Magnesium 1.7 mg/dl (1.7-2.4); Potassium 3.9 mmol/L (3.5-5.1); Sodium 131 mmol/L (136-145); Total Protein 6.5 gm/dl (6.0-8.3)
[2022-12-08] MEDS ORDERED: MAGNESIUM SULFATE / D5W 1 GM/100 ML BAG IV ONE (08:16)
[2022-12-08] MEDS: NUTREN LIQD 2.0 1,000 ML BAG PEG SCH ×4 (08:52→20:56)
[2022-12-08] MEDS: POTASSIUM CHLORIDE 20 MEQ/15 ML UDC PO SCH (08:53)
[2022-12-08] MEDS: CLOTRIMAZOLE/BETAMETHASONE CR 15 GM TUBE EXT SCH (08:53)
[2022-12-08] MEDS: THIAMINE HCL 100 MG TAB PEG SCH (08:53)
[2022-12-08] MEDS: LANSOPRAZOLE 30 MG SOLTAB PEG SCH ×2 (08:53→20:55)
[2022-12-08] MEDS: oxyCODONE HCL IR 5 MG TAB (IMMEDIATE RELEASE) PEG PRN ×2 (12:20→20:58)
--- NOTE | 2022-12-08 15:17 | Surgery Progress Note ---
Date of Service December 08, 2022 Assessment & Plan (1) Feeding tube dysfunction: Plan: Patient is having some ongoing drainage around the g-tube although it is tight to about the 2cm noé. continue to be stringent about keeping tube tight and keeping area around the g-tube as dry as possible. dressing was changed and lotrisone cream replaced. -otherwise he is tolerating advancement in his bolus TEN feeds, currently at 250cc/feed Admission and Anticipated Discharge Date Admission Date: November 30, 2022 Subjective Patient feeling okay. Tolerating TEN at 250cc bolus feeds, no nausea/vomiting. Having some leakage around g-tube Physical Exam Physical Exam: awake, no distress Gastrointestinal (Abdomen): Inspection/Auscultation: abdomen not distended there is small/moderate amount of gordon/green drainage surrounding G tube. g-tube is currently tightened at the 2cm noé. erythema surrounding g-tube Results & Data Vital Signs (Past 12 Hours) Vital Signs Temp Pulse Pulse Resp BP BP Pulse Ox 12/08/22 10:59 37.0 C 115 H 18 123/77 98 12/08/22 08:00 97 H 12/08/22 08:00 12/08/22 09:18 36.5 C 100 H 16 124/89 98 12/08/22 03:26 36.5 C 105 H 20 122/79 97 O2 Del Method 12/08/22 10:59 Room Air 12/08/22 08:00 12/08/22 08:00 Room Air 12/08/22 09:18 Room Air 12/08/22 03:26 Room Air PG Care Time/CCT Total # of Minutes Spent Total Time Spent with Patient: Total time spent is greater than 50% in coordination of care (as documented) at patient's floor/unit and/or counseling patient: Coding Level of Care Code 57707 Post Operative Follow-Up Diagnoses Feeding tube dysfunction T85.598A
--- NOTE | 2022-12-08 16:37 | Hospitalist Progress Note ---
Date of Service December 08, 2022 Assessment & Plan (1) Squamous cell carcinoma of hypopharynx: Plan: Acute recent diagnosis, with systemic complications now w/ G-tube but issues w/ leakage and both skin irritation but decreased delivery of hydration and nutrition, recent 10 day inpatient stay [facility] [place] dehydration and presented again dehydrated Has tolerated escalation of tube feeds and electrolytes replace with refeeding issues Gen surgery is evaluating his PEG tube daily and making adjustments. He still having less leakage of his feedings which helps his skin heal, seems to be mechanical issue of keeping bumper tight against skin to pull up internal balloon to keep tight heme oncology. has reviewed with ENT, is candidate for chemo/XRT. consider discharge this week if does well at PT/OT and outpt chemo next week In regards to possible sepsis, patient the morning after admission sepsis ruled out continues on intravenous Zosyn to treat abdominal wall cellulitis metabolic encephalopathy secondary to acurte on chronic hypercalcemia, Head CT without metastatic disease, Calcium is elevated 12/06, treated with ivf lasix and zolendronic acid,now resolved Acute REFEEDING SYNDROME finally seems stable, still mild electrolyte changes (2) Hypercalcemia: Plan: acute metabollic encephalopahty saline/lasix zolnedronic acid (3) Dysphagia: Plan: acute on chronic, severe Secondary to head neck cancer and hypopharyngeal mass able to have water and small sips did give one dose iv decadron in pm 12/05, was confused prior to this, oral atropine and prn racemic epi nebs Getting g tube feedings (4) Severe protein-calorie malnutrition: Plan: Secondary to cancer diagnosis and decreased oral intake patient continues to be significantly underweight with a BMI of 17 Admission and Anticipated Discharge Date Admission Date: November 30, 2022 Subjective pt is awake and alert, hot potato mouth, dyphonia, secretions Physical Exam Physical Exam: pt is awake and alert still spitting secretions no stridor decreased breath sounds Results & Data Results & Data Vital Signs (Past 12 Hours) Vital Signs Temp Pulse Pulse Resp BP BP Pulse Ox 12/08/22 15:51 107 H 12/08/22 15:21 98.4 F 116 H 22 103/76 97 12/08/22 10:59 98.6 F 115 H 18 123/77 98 12/08/22 08:00 97 H 12/08/22 08:00 12/08/22 09:18 97.7 F 100 H 16 124/89 98 O2 Del Method 12/08/22 15:51 12/08/22 15:21 Room Air 12/08/22 10:59 Room Air 12/08/22 08:00 12/08/22 08:00 Room Air 12/08/22 09:18 Room Air Laboratory Results reviewed cbc reviewed prp PG Care Time/CCT Total # of Minutes Spent Total Time Spent with Patient: Total time spent is greater than 50% in coordination of care (as documented) at patient's floor/unit and/or counseling patient: Coding Level of Care Code 88003 SUB INP/OBS CARE 2/35MIN Diagnoses Squamous cell carcinoma of hypopharynx C13.9 Hypercalcemia E83.52 Dysphagia R13.10 Severe protein-calorie malnutrition E43
[2022-12-08] MEDS: ENOXAPARIN INJ 40 MG/0.4 ML SYR SQ SCH (20:54)
[2022-12-09] MEDS: TUBE FEEDING WATER FLUSH PEG SCH ×6 (01:36→21:39)
[2022-12-09] MEDS: AMOXICILLIN/CLAVULANATE SUSP 250/62.5MG 5ML 75ML BTL PO SCH ×3 (05:50→21:24)
[2022-12-09] MEDS: oxyCODONE HCL IR 5 MG TAB (IMMEDIATE RELEASE) PEG PRN (05:57)
[2022-12-09 06:09] LABS: Hematocrit (blood only) 25.6 % (42.0-52.0); Hemoglobin 8.8 g/dl (14.0-18.0); Mean Corpuscular Hemoglobin 32.4 pg (25.0-34.0); Mean Corpuscular Hgb Conc 34.4 g/dL (32.0-36.0); Mean Corpuscular Volume 94.1 fL (80.0-100.0); Platelet Count 684 K/uL (130-400); RDW Standard Deviation 47.1 fL (36.4-46.3); Red Blood Count 2.72 M/uL (4.70-6.10); White Blood Count 12.57 K/ul (4.8-10.8)
[2022-12-09 06:26] LABS: Albumin Level 2.9 gm/dl (3.4-5.0); Anion Gap 6 (3-11); Bilirubin,Total 0.3 mg/dl (0.2-1.0); Calcium 8.4 mg/dl (8.6-10.3); Carbon Dioxide 27 mmol/L (21-32); Chloride 98 mmol/L (98-107); Magnesium 1.9 mg/dl (1.7-2.4); Potassium 4.1 mmol/L (3.5-5.1); Sodium 131 mmol/L (136-145)
[2022-12-09 06:32] LABS: Alanine Aminotransferase 43 U/L (7-52); Albumin Globulin Ratio 0.9 (0.9-2); Alkaline Phosphatase 41 U/L (34-104); Aspartate Aminotransferase 25 U/L (13-39); BUN Creatinine Ratio 28.6 (10-20); Blood Urea Nitrogen 10 mg/dl (6-23); Creatinine Clr Calc Pharmacy 194.5 ml/min; Est GFR (African American) > 150.0 ml/min; Est GFR (Non-African American) 142.3 ml/min; Globulin 3.4 gm/dl (2.5-4.0); Glucose 98 mg/dl (70-99(Fasting)); Total Protein 6.3 gm/dl (6.0-8.3)
[2022-12-09] MEDS: NUTREN LIQD 2.0 1,000 ML BAG PEG SCH ×4 (09:42→21:39)
[2022-12-09] MEDS: LANSOPRAZOLE 30 MG SOLTAB PEG SCH ×2 (09:59→21:17)
[2022-12-09] MEDS: POTASSIUM CHLORIDE 20 MEQ/15 ML UDC PO SCH (09:59)
[2022-12-09] MEDS: THIAMINE HCL 100 MG TAB PEG SCH (10:00)
--- NOTE | 2022-12-09 11:56 | Communication Note ---
Date of Service: December 09, 2022 Patient requires the HOB to be elevated more than 30 degrees most of the time due to problems with aspiration.
[2022-12-09] MEDS: CLOTRIMAZOLE/BETAMETHASONE CR 15 GM TUBE EXT SCH (12:25)
--- NOTE | 2022-12-09 13:46 | Surgery Progress Note ---
Date of Service December 09, 2022 Assessment & Plan (1) Feeding tube dysfunction: Plan: Doing better/improving. Dermatitis is improving. He is tolerating the tube feeds without difficulty. It is imperative that we continue to keep the tube tight to prevent leakage. Plan is for discharge hopefully over the weekend. (2) Gastrostomy tube in place: Admission and Anticipated Discharge Date Admission Date: November 30, 2022 Subjective Patient seen. Family at bedside. He is comfortable in no acute distress. Alert and oriented. Physical Exam Physical Exam: Alert. No acute distress Tube is in place without leakage currently. Dermatitis improving. Results & Data Vital Signs (Past 12 Hours) Vital Signs Temp Pulse Pulse Resp BP Pulse Ox O2 Del Method 12/09/22 11:04 37 C 97 H 16 120/74 97 Room Air 12/09/22 08:00 98 H 12/09/22 08:00 Room Air 12/09/22 07:47 36.8 C 95 H 18 115/58 L 96 Room Air 12/09/22 02:50 36.6 C 95 H 18 109/68 99 Room Air PG Care Time/CCT Total # of Minutes Spent Total Time Spent with Patient: Total time spent is greater than 50% in coordination of care (as documented) at patient's floor/unit and/or counseling patient: Coding Level of Care Code 24673 Post Operative Follow-Up Diagnoses Feeding tube dysfunction T85.598A Gastrostomy tube in place Z93.1
--- NOTE | 2022-12-09 14:39 | Hospitalist Progress Note ---
Date of Service December 09, 2022 Assessment & Plan (1) Squamous cell carcinoma of hypopharynx: Plan: Acute recent diagnosis, with systemic complications now w/ G-tube but issues w/ leakage and both skin irritation but decreased delivery of hydration and nutrition, recent 10 [place] [facility] [place] and presented again dehydrated Has tolerated escalation of tube feeds and electrolytes replace with refeeding issues Gen surgery is evaluating his PEG tube daily and making adjustments. He still having less leakage of his feedings which helps his skin heal, seems to be mechanical issue of keeping bumper tight against skin to pull up internal balloon to keep tight heme oncology. has reviewed with ENT, is candidate for chemo/XRT. consider discharge this week if does well at PT/OT and outpt chemo next week In regards to possible sepsis, patient the morning after admission sepsis ruled out continues on intravenous Zosyn to treat abdominal wall cellulitis metabolic encephalopathy secondary to acurte on chronic hypercalcemia, Head CT without metastatic disease, Calcium is elevated 12/06, treated with ivf lasix and zolendronic acid,now resolved Acute REFEEDING SYNDROME finally seems stable, still mild electrolyte changes will recheck electrolytes in AM. Ancticipate discharge in 48-72 hours. (2) Hypercalcemia: Plan: acute metabollic encephalopahty saline/lasix zolnedronic acid (3) Dysphagia: Plan: acute on chronic, severe Secondary to head neck cancer and hypopharyngeal mass able to have water and small sips did give one dose iv decadron in pm 12/05, was confused prior to this, oral atropine and prn racemic epi nebs Getting g tube feedings (4) Severe protein-calorie malnutrition: Plan: Secondary to cancer diagnosis and decreased oral intake patient continues to be significantly underweight with a BMI of 17 Admission and Anticipated Discharge Date Admission Date: November 30, 2022 Subjective 52 yo male reports no new symptoms. Patient reports feeling better, g tube is working. Decreased pain. Review of Systems Review of Systems: All systems reviewed & are unremarkable except as noted in HPI & below Physical Exam Physical Exam: general; chronically ill appearing male, cachectic/thin, sitting up in bed, sister and mother at bedside heent: trachea midline +cervical lymphadenopathy resp: no tachypnea, coarse breath sounds cv: rrr, tachyno obvious murmur, no pitting edema/calf tenderness gi: +BS, distended, G-tube in place w/ surrounding erythema gu: no jean-baptiste msk/neuro: follows commands, no slurred speech/facial droop, generalized weakness psych: alert/oriented, cooperative with exam Results & Data Results & Data Vital Signs (Past 12 Hours) Vital Signs Temp Pulse Pulse Resp BP Pulse Ox O2 Del Method 12/09/22 11:04 37 C 97 H 16 120/74 97 Room Air 12/09/22 08:00 98 H 12/09/22 08:00 Room Air 12/09/22 07:47 36.8 C 95 H 18 115/58 L 96 Room Air 12/09/22 02:50 36.6 C 95 H 18 109/68 99 Room Air PG Care Time/CCT Total # of Minutes Spent Total Time Spent with Patient: Total time spent is greater than 50% in coordination of care (as documented) at patient's floor/unit and/or counseling patient: Coding Level of Care Code 74845 SUB INP/OBS CARE 3/50MIN Diagnoses Squamous cell carcinoma of hypopharynx C13.9 Hypercalcemia E83.52 Dysphagia R13.10 Severe protein-calorie malnutrition E43 Time Spent (min) 50 Comment chart review
[2022-12-09] MEDS: oxyCODONE HCL SOLN 5 MG/5 ML UDC GT PRN ×2 (15:58→21:24)
[2022-12-09] MEDS: MoRPHine SULFATE 2 MG/ML CARP IV PRN (19:45)
[2022-12-09] MEDS: ENOXAPARIN INJ 40 MG/0.4 ML SYR SQ SCH (21:17)
[2022-12-10] MEDS: TUBE FEEDING WATER FLUSH PEG SCH ×7 (01:16→23:54)
[2022-12-10] MEDS: oxyCODONE HCL SOLN 5 MG/5 ML UDC GT PRN ×4 (03:23→21:54)
[2022-12-10] MEDS: AMOXICILLIN/CLAVULANATE SUSP 250/62.5MG 5ML 75ML BTL PO SCH ×3 (05:48→21:54)
[2022-12-10 06:32] LABS: Hematocrit (blood only) 26.8 % (42.0-52.0); Mean Corpuscular Hemoglobin 32.1 pg (25.0-34.0); Mean Corpuscular Hgb Conc 33.6 g/dL (32.0-36.0); Mean Corpuscular Volume 95.7 fL (80.0-100.0); Mean Platelet Volume 9.1 fL (9.4-12.4); Platelet Count 678 K/uL (130-400); RDW Coefficient of Variation 14.1 % (11.5-14.5); RDW Standard Deviation 49.2 fL (36.4-46.3); White Blood Count 10.36 K/ul (4.8-10.8)
[2022-12-10 06:45] LABS: Alanine Aminotransferase 39 U/L (7-52); Albumin Globulin Ratio 0.9 (0.9-2); Alkaline Phosphatase 45 U/L (34-104); Anion Gap 5 (3-11); Aspartate Aminotransferase 25 U/L (13-39); Bilirubin,Total 0.3 mg/dl (0.2-1.0); Blood Urea Nitrogen 8 mg/dl (6-23); Calcium 8.2 mg/dl (8.6-10.3); Carbon Dioxide 29 mmol/L (21-32); Chloride 97 mmol/L (98-107); Creatinine Clr Calc Pharmacy 169.9 ml/min; Est GFR (African American) > 150.0 ml/min; Est GFR (Non-African American) 134.7 ml/min; Globulin 3.5 gm/dl (2.5-4.0); Glucose 103 mg/dl (70-99(Fasting)); Magnesium 1.9 mg/dl (1.7-2.4); Phosphorus 2.3 mg/dl (2.5-4.9); Potassium 3.9 mmol/L (3.5-5.1); Sodium 131 mmol/L (136-145); Total Protein 6.5 gm/dl (6.0-8.3)
[2022-12-10] MEDS: NUTREN LIQD 2.0 1,000 ML BAG PEG SCH ×4 (08:16→20:48)
[2022-12-10] MEDS: POTASSIUM CHLORIDE 20 MEQ/15 ML UDC PO SCH (08:17)
[2022-12-10] MEDS: CLOTRIMAZOLE/BETAMETHASONE CR 15 GM TUBE EXT SCH (08:17)
[2022-12-10] MEDS: LANSOPRAZOLE 30 MG SOLTAB PEG SCH ×2 (08:18→21:54)
[2022-12-10] MEDS: THIAMINE HCL 100 MG TAB PEG SCH (08:18)
[2022-12-10] MEDS ORDERED: SODIUM CHLORIDE 0.65% NA SOLN 45 ML (OCEAN) ONE (10:50)
[2022-12-10] MEDS: ENOXAPARIN INJ 40 MG/0.4 ML SYR SQ SCH (21:55)
--- NOTE | 2022-12-10 22:40 | Hospitalist Progress Note ---
Date of Service December 10, 2022 Assessment & Plan (1) Squamous cell carcinoma of hypopharynx: Plan: Acute recent diagnosis, with systemic complications now w/ G-tube but issues w/ leakage and both skin irritation but decreased delivery of hydration and nutrition, recent 10 day inpatient stay [facility] [place] for dehydration and presented again dehydrated Has tolerated escalation of tube feeds and electrolytes replace with refeeding issues Gen surgery is evaluating his PEG tube daily and making adjustments. He still having less leakage of his feedings which helps his skin heal, seems to be mechanical issue of keeping bumper tight against skin to pull up internal balloon to keep tight heme oncology. has reviewed with ENT, is candidate for chemo/XRT. consider discharge this week if does well at PT/OT and outpt chemo next week In regards to possible sepsis, patient the morning after admission sepsis ruled out continues on intravenous Zosyn to treat abdominal wall cellulitis metabolic encephalopathy secondary to acurte on chronic hypercalcemia, Head CT without metastatic disease, Calcium is elevated 12/06, treated with ivf lasix and zolendronic acid,now resolved Acute REFEEDING SYNDROME finally seems stable, still mild electrolyte changes will continue to check electrolytes and replace accordingly Ancticipate discharge on 12/12 (2) Hypercalcemia: Plan: acute metabollic encephalopahty saline/lasix zolnedronic acid (3) Dysphagia: Plan: acute on chronic, severe Secondary to head neck cancer and hypopharyngeal mass able to have water and small sips did give one dose iv decadron in pm 12/05, was confused prior to this, oral atropine and prn racemic epi nebs Getting g tube feedings (4) Severe protein-calorie malnutrition: Plan: Secondary to cancer diagnosis and decreased oral intake patient continues to be significantly underweight with a BMI of 17 Admission and Anticipated Discharge Date Admission Date: November 30, 2022 Subjective 52 yo male reports no new symptoms. Review of Systems Review of Systems: All systems reviewed & are unremarkable except as noted in HPI & below Physical Exam Physical Exam: general; chronically ill appearing male, cachectic/thin, sitting up in bed, sister and mother at bedside heent: trachea midline +cervical lymphadenopathy resp: no tachypnea, coarse breath sounds cv: rrr, tachyno obvious murmur, no pitting edema/calf tenderness gi: +BS, distended, G-tube in place w/ surrounding erythema gu: no jean-baptiste msk/neuro: follows commands, no slurred speech/facial droop, generalized weakness psych: alert/oriented, cooperative with exam Results & Data Results & Data Vital Signs (Past 12 Hours) Vital Signs Temp Pulse Pulse Pulse Resp BP Pulse Ox 12/10/22 19:44 36.9 C 114 H 18 110/71 97 12/10/22 14:04 115 H 12/10/22 16:03 36.4 C L 106 H 14 121/73 99 12/10/22 12:32 37.1 C 112 H 16 118/74 98 O2 Del Method 12/10/22 19:44 Room Air 12/10/22 14:04 12/10/22 16:03 Room Air 12/10/22 12:32 Room Air PG Care Time/CCT Total # of Minutes Spent Total Time Spent with Patient: Total time spent is greater than 50% in coordination of care (as documented) at patient's floor/unit and/or counseling patient: Coding Level of Care Code 84681 SUB INP/OBS CARE 2/35MIN Diagnoses Squamous cell carcinoma of hypopharynx C13.9 Hypercalcemia E83.52 Dysphagia R13.10 Severe protein-calorie malnutrition E43
[2022-12-10] MEDS: LORazepam 2 MG/1 ML VIAL IV PRN (23:39)
[2022-12-11] MEDS: AMOXICILLIN/CLAVULANATE SUSP 250/62.5MG 5ML 75ML BTL PO SCH ×3 (05:16→22:50)
[2022-12-11] MEDS: TUBE FEEDING WATER FLUSH PEG SCH ×5 (05:20→21:27)
[2022-12-11] MEDS: NUTREN LIQD 2.0 1,000 ML BAG PEG SCH ×4 (07:45→21:30)
[2022-12-11 08:19] LABS: Anion Gap 7 (3-11); BUN Creatinine Ratio 23.5 (10-20); Blood Urea Nitrogen 8 mg/dl (6-23); Calcium 8.3 mg/dl (8.6-10.3); Carbon Dioxide 28 mmol/L (21-32); Chloride 97 mmol/L (98-107); Creatinine Clr Calc Pharmacy 201.7 ml/min; Est GFR (African American) > 150.0 ml/min; Glucose 101 mg/dl (70-99(Fasting)); Sodium 132 mmol/L (136-145)
[2022-12-11] MEDS: POTASSIUM CHLORIDE 20 MEQ/15 ML UDC PO SCH (09:00)
[2022-12-11] MEDS: THIAMINE HCL 100 MG TAB PEG SCH (09:01)
[2022-12-11] MEDS: CLOTRIMAZOLE/BETAMETHASONE CR 15 GM TUBE EXT SCH (09:02)
[2022-12-11] MEDS: LANSOPRAZOLE 30 MG SOLTAB PEG SCH ×2 (09:02→21:27)
[2022-12-11] MEDS ORDERED: MAGNESIUM SULFATE / D5W 1 GM/100 ML BAG IV ONE (13:02)
[2022-12-11] MEDS ORDERED: SODIUM PHOSPHATE 3 MMOL/1 ML INFUSION IV STA (13:02)
[2022-12-11] MEDS ORDERED: SODIUM PHOSPHATE 21 MMOL in SODIUM CHLORIDE 0.9% 500 ML IV ONE (13:15)
[2022-12-11] MEDS: oxyCODONE HCL SOLN 5 MG/5 ML UDC GT PRN (19:25)
[2022-12-11] MEDS: ENOXAPARIN INJ 40 MG/0.4 ML SYR SQ SCH (21:28)
--- NOTE | 2022-12-11 22:29 | Hospitalist Progress Note ---
Date of Service December 11, 2022 Assessment & Plan (1) Squamous cell carcinoma of hypopharynx: Plan: Acute recent diagnosis, with systemic complications now w/ G-tube but issues w/ leakage and both skin irritation but decreased delivery of hydration and nutrition, recent 10 day inpatient stay [facility] [place] for dehydration and presented again dehydrated Has tolerated escalation of tube feeds and electrolytes replace with refeeding issues Gen surgery is evaluating his PEG tube daily and making adjustments. He still having less leakage of his feedings which helps his skin heal, seems to be mechanical issue of keeping bumper tight against skin to pull up internal balloon to keep tight heme oncology. has reviewed with ENT, is candidate for chemo/XRT. consider discharge this week if does well at PT/OT and outpt chemo next week In regards to possible sepsis, patient the morning after admission sepsis ruled out continues on intravenous Zosyn to treat abdominal wall cellulitis metabolic encephalopathy secondary to acurte on chronic hypercalcemia, Head CT without metastatic disease, Calcium is elevated 12/06, treated with ivf lasix and zolendronic acid,now resolved Acute REFEEDING SYNDROME finally seems stable, still mild electrolyte changes will continue to check electrolytes and replace accordingly Ancticipate discharge on 12/12 if electrolytes are at goal. (2) Hypercalcemia: Plan: acute metabollic encephalopahty saline/lasix zolnedronic acid (3) Dysphagia: Plan: acute on chronic, severe Secondary to head neck cancer and hypopharyngeal mass able to have water and small sips did give one dose iv decadron in pm 12/05, was confused prior to this, oral atropine and prn racemic epi nebs Getting g tube feedings (4) Severe protein-calorie malnutrition: Plan: Secondary to cancer diagnosis and decreased oral intake patient continues to be significantly underweight with a BMI of 17 Admission and Anticipated Discharge Date Admission Date: November 30, 2022 Subjective Patient reports no new symptoms. Review of Systems Review of Systems: All systems reviewed & are unremarkable except as noted in HPI & below Physical Exam Physical Exam: general; chronically ill appearing male, cachectic/thin, sitting up in bed, sister and mother at bedside heent: trachea midline +cervical lymphadenopathy resp: no tachypnea, coarse breath sounds cv: rrr, tachyno obvious murmur, no pitting edema/calf tenderness gi: +BS, distended, G-tube in place w/ surrounding erythema (decreased) gu: no jean-baptiste msk/neuro: follows commands, no slurred speech/facial droop, generalized weakness psych: alert/oriented, cooperative with exam Results & Data Results & Data Vital Signs (Past 12 Hours) Vital Signs Temp Pulse Pulse Resp BP BP Pulse Ox 12/11/22 19:31 37.1 C 101 H 18 139/82 98 12/11/22 16:00 106 H 12/11/22 16:04 37.3 C 95 H 16 123/76 96 12/11/22 12:43 36.7 C 111 H 19 117/69 95 O2 Del Method 12/11/22 19:31 Room Air 12/11/22 16:00 12/11/22 16:04 Room Air 12/11/22 12:43 Room Air PG Care Time/CCT Total # of Minutes Spent Total Time Spent with Patient: Total time spent is greater than 50% in coordination of care (as documented) at patient's floor/unit and/or counseling patient: Coding Level of Care Code 51366 SUB INP/OBS CARE 2/35MIN Diagnoses Squamous cell carcinoma of hypopharynx C13.9 Hypercalcemia E83.52 Dysphagia R13.10 Severe protein-calorie malnutrition E43
[2022-12-12] MEDS: TUBE FEEDING WATER FLUSH PEG SCH ×6 (01:05→20:48)
[2022-12-12] MEDS: AMOXICILLIN/CLAVULANATE SUSP 250/62.5MG 5ML 75ML BTL PO SCH ×3 (05:21→20:49)
[2022-12-12 07:02] LABS: Basophils # (auto) 0.05 K/uL (0-0.2); Basophils % (auto) 0.5 %; Eosinophils # (auto) 0.06 K/uL (0-0.50); Eosinophils % (auto) 0.5 %; Hematocrit (blood only) 25.8 % (42.0-52.0); Hemoglobin 8.8 g/dl (14.0-18.0); Immature Granulocytes # (auto) 0.05 K/uL (0.01-0.20); Immature Granulocytes % (auto) 0.5 %; Lymphocytes # (auto) 1.27 K/uL (1.2-3.4); Lymphocytes % (auto) 11.5 %; Mean Corpuscular Hemoglobin 32.1 pg (25.0-34.0); Mean Corpuscular Hgb Conc 34.1 g/dL (32.0-36.0); Mean Corpuscular Volume 94.2 fL (80.0-100.0); Mean Platelet Volume 8.9 fL (9.4-12.4); Monocytes # (auto) 1.08 K/uL (0.11-0.59); Monocytes % (auto) 9.8 %; Neutrophils # (auto) 8.54 K/uL (1.40-6.50); Neutrophils % (auto) 77.2 %; Platelet Count 655 K/uL (130-400); RDW Coefficient of Variation 14.2 % (11.5-14.5); RDW Standard Deviation 48.7 fL (36.4-46.3); Red Blood Count 2.74 M/uL (4.70-6.10); White Blood Count 11.05 K/ul (4.8-10.8)
[2022-12-12 07:14] LABS: Anion Gap 5 (3-11); BUN Creatinine Ratio 22.2 (10-20); Blood Urea Nitrogen 6 mg/dl (6-23); Calcium 8.4 mg/dl (8.6-10.3); Carbon Dioxide 28 mmol/L (21-32); Chloride 98 mmol/L (98-107); Creatinine Clr Calc Pharmacy 252.6 ml/min; Est GFR (African American) > 150.0 ml/min; Est GFR (Non-African American) > 150.0 ml/min; Glucose 106 mg/dl (70-99(Fasting)); Magnesium 2.1 mg/dl (1.7-2.4); Phosphorus 2.4 mg/dl (2.5-4.9); Potassium 3.8 mmol/L (3.5-5.1); Sodium 131 mmol/L (136-145)
[2022-12-12] MEDS: NUTREN LIQD 2.0 1,000 ML BAG PEG SCH ×4 (07:39→21:01)
[2022-12-12] MEDS: CLOTRIMAZOLE/BETAMETHASONE CR 15 GM TUBE EXT SCH (08:38)
[2022-12-12] MEDS: THIAMINE HCL 100 MG TAB PEG SCH (08:39)
[2022-12-12] MEDS: POTASSIUM CHLORIDE 20 MEQ/15 ML UDC PO SCH (08:39)
[2022-12-12] MEDS: LANSOPRAZOLE 30 MG SOLTAB PEG SCH ×2 (08:39→20:48)
[2022-12-12] MEDS: oxyCODONE HCL SOLN 5 MG/5 ML UDC GT PRN ×3 (08:42→20:48)
[2022-12-12] MEDS: POT PHOSPHATE MONOBASIC W/ SOD TAB GT SCH ×3 (13:15→20:49)
[2022-12-12] MEDS: ENOXAPARIN INJ 40 MG/0.4 ML SYR SQ SCH (20:48)
--- NOTE | 2022-12-12 21:11 | Hospitalist Progress Note ---
Date of Service December 12, 2022 Assessment & Plan (1) Squamous cell carcinoma of hypopharynx: Plan: Acute recent diagnosis, with systemic complications now w/ G-tube but issues w/ leakage and both skin irritation but decreased delivery of hydration and nutrition, [place] 10 [place] [facility] [place] presented again dehydrated Has tolerated escalation of tube feeds and electrolytes replace with refeeding issues Gen surgery is evaluating his PEG tube daily and making adjustments. He still having less leakage of his feedings which helps his skin heal, seems to be mechanical issue of keeping bumper tight against skin to pull up internal balloon to keep tight heme oncology. has reviewed with ENT, is candidate for chemo/XRT. consider discharge this week if does well at PT/OT and outpt chemo next week In regards to possible sepsis, patient the morning after admission sepsis ruled out continues on intravenous Zosyn to treat abdominal wall cellulitis metabolic encephalopathy secondary to acurte on chronic hypercalcemia, Head CT without metastatic disease, Calcium is elevated 12/06, treated with ivf lasix and zolendronic acid,now resolved Acute REFEEDING SYNDROME finally seems stable, still mild electrolyte changes will continue to check electrolytes and replace accordingly Patient continues to have electrolyte abnormalities, will hold discharge as home health will be available on Tuesday. (2) Hypercalcemia: Plan: acute metabollic encephalopahty saline/lasix zolnedronic acid (3) Dysphagia: Plan: acute on chronic, severe Secondary to head neck cancer and hypopharyngeal mass able to have water and small sips did give one dose iv decadron in pm 12/05, was confused prior to this, oral atropine and prn racemic epi nebs Getting g tube feedings (4) Severe protein-calorie malnutrition: Plan: Secondary to cancer diagnosis and decreased oral intake patient continues to be significantly underweight with a BMI of 17 Admission and Anticipated Discharge Date Admission Date: November 30, 2022 Subjective Patient reports no new symptoms. Review of Systems Review of Systems: All systems reviewed & are unremarkable except as noted in HPI & below Physical Exam Physical Exam: general; chronically ill appearing male, cachectic/thin, sitting up in bed heent: trachea midline +cervical lymphadenopathy resp: no tachypnea, coarse breath sounds cv: rrr, tachy gi: +BS, distended, G-tube in place w/ surrounding erythema (decreased) gu: no jean-baptiste msk/neuro: follows commands, no slurred speech/facial droop, generalized weakness psych: alert/oriented, cooperative with exam Results & Data Results & Data Vital Signs (Past 12 Hours) Vital Signs Temp Pulse Pulse Resp BP Pulse Ox O2 Del Method 12/12/22 19:38 37.3 C 118 H 22 136/108 H 100 Room Air 12/12/22 18:56 100 H 12/12/22 16:05 37.3 C 100 H 20 121/78 98 Room Air 12/12/22 12:06 37.2 C 105 H 18 126/82 99 Room Air PG Care Time/CCT Total # of Minutes Spent Total Time Spent with Patient: Total time spent is greater than 50% in coordination of care (as documented) at patient's floor/unit and/or counseling patient: Coding Level of Care Code 81187 SUB INP/OBS CARE 2/35MIN Diagnoses Squamous cell carcinoma of hypopharynx C13.9 Hypercalcemia E83.52 Dysphagia R13.10 Severe protein-calorie malnutrition E43
[2022-12-13] MEDS: TUBE FEEDING WATER FLUSH PEG SCH ×6 (00:32→21:06)
[2022-12-13] MEDS: LORazepam 2 MG/1 ML VIAL IV PRN ×2 (02:52→23:05)
[2022-12-13] MEDS: oxyCODONE HCL SOLN 5 MG/5 ML UDC GT PRN ×3 (02:52→21:03)
[2022-12-13] MEDS: AMOXICILLIN/CLAVULANATE SUSP 250/62.5MG 5ML 75ML BTL PO SCH ×3 (05:10→21:06)
[2022-12-13 06:24] LABS: Hematocrit (blood only) 25.9 % (42.0-52.0); Hemoglobin 8.7 g/dl (14.0-18.0); Mean Corpuscular Hgb Conc 33.6 g/dL (32.0-36.0); Mean Corpuscular Volume 95.2 fL (80.0-100.0); Mean Platelet Volume 9.1 fL (9.4-12.4); Platelet Count 630 K/uL (130-400); RDW Coefficient of Variation 14.1 % (11.5-14.5); RDW Standard Deviation 49.3 fL (36.4-46.3); Red Blood Count 2.72 M/uL (4.70-6.10); White Blood Count 10.41 K/ul (4.8-10.8)
[2022-12-13 06:38] LABS: Anion Gap 7 (3-11); BUN Creatinine Ratio 33.3 (10-20); Blood Urea Nitrogen 9 mg/dl (6-23); C Reactive Protein 4.91 mg/dl (0-0.5); Calcium 8.6 mg/dl (8.6-10.3); Carbon Dioxide 28 mmol/L (21-32); Chloride 98 mmol/L (98-107); Est GFR (African American) > 150.0 ml/min; Est GFR (Non-African American) > 150.0 ml/min; Glucose 108 mg/dl (70-99(Fasting)); Magnesium 1.9 mg/dl (1.7-2.4); Potassium 3.8 mmol/L (3.5-5.1); Sodium 133 mmol/L (136-145)
[2022-12-13] MEDS: NUTREN LIQD 2.0 1,000 ML BAG PEG SCH ×4 (07:50→21:26)
[2022-12-13] MEDS: CLOTRIMAZOLE/BETAMETHASONE CR 15 GM TUBE EXT SCH (09:53)
[2022-12-13] MEDS: LANSOPRAZOLE 30 MG SOLTAB PEG SCH ×2 (09:54→21:04)
[2022-12-13] MEDS: POTASSIUM CHLORIDE 20 MEQ/15 ML UDC PO SCH (09:55)
[2022-12-13] MEDS: POT PHOSPHATE MONOBASIC W/ SOD TAB GT SCH (09:55)
[2022-12-13] MEDS: THIAMINE HCL 100 MG TAB PEG SCH (09:56)
[2022-12-13] MEDS: ENOXAPARIN INJ 40 MG/0.4 ML SYR SQ SCH (21:02)
--- NOTE | 2022-12-13 21:45 | Hospitalist Progress Note ---
Date of Service December 13, 2022 Assessment & Plan (1) Squamous cell carcinoma of hypopharynx: Plan: Acute recent diagnosis, with systemic complications now w/ G-tube but issues w/ leakage and both skin irritation but decreased delivery of hydration and nutrition, recent 10 day inpatient stay [facility] [place] and presented again dehydrated Has tolerated escalation of tube feeds and electrolytes replace with refeeding issues Gen surgery is evaluating his PEG tube daily and making adjustments. He still having less leakage of his feedings which helps his skin heal, seems to be mechanical issue of keeping bumper tight against skin to pull up internal balloon to keep tight heme oncology. has reviewed with ENT, is candidate for chemo/XRT. consider discharge this week if does well at PT/OT and outpt chemo next week In regards to possible sepsis, patient the morning after admission sepsis ruled out continues on intravenous Zosyn to treat abdominal wall cellulitis metabolic encephalopathy secondary to acurte on chronic hypercalcemia, Head CT without metastatic disease, Calcium is elevated 12/06, treated with ivf lasix and zolendronic acid,now resolved Acute REFEEDING SYNDROME finally seems stable, still mild electrolyte changes will continue to check electrolytes and replace accordingly Patient has had altered mental status. Did not cooperate for raditation mapping. Unsure if discharging patient home will be an adequate disposition for the patient as he has been confused. His elderly mother will be the one taking care of him. Updated his mother (2) Hypercalcemia: Plan: acute metabollic encephalopahty saline/lasix zolnedronic acid (3) Dysphagia: Plan: acute on chronic, severe Secondary to head neck cancer and hypopharyngeal mass able to have water and small sips did give one dose iv decadron in pm 12/05, was confused prior to this, oral atropine and prn racemic epi nebs Getting g tube feedings (4) Severe protein-calorie malnutrition: Plan: Secondary to cancer diagnosis and decreased oral intake patient continues to be significantly underweight with a BMI of 17 Admission and Anticipated Discharge Date Admission Date: November 30, 2022 Subjective 52 yo male appears intermittently confused, nurse reports he has been pulling on his g tube. He has had moments opn the day where he is lucid. Review of Systems Review of Systems: All systems reviewed & are unremarkable except as noted in HPI & below Physical Exam Physical Exam: general; chronically ill appearing male, cachectic/thin, sitting up in bed heent: trachea midline +cervical lymphadenopathy resp: no tachypnea, coarse breath sounds cv: rrr, tachy gi: +BS, distended, G-tube in place w/ surrounding erythema (decreased) gu: no jean-baptiste msk/neuro: follows commands, no slurred speech/facial droop, generalized weakness psych: alert/oriented, cooperative with exam Results & Data Results & Data Vital Signs (Past 12 Hours) Vital Signs Temp Pulse Pulse Resp BP Pulse Ox O2 Del Method 12/13/22 19:00 37.3 C 104 H 17 125/75 98 Room Air 12/13/22 17:16 36.9 C 107 H 19 135/88 97 Room Air 12/13/22 16:16 103 H 12/13/22 12:31 Room Air 12/13/22 11:00 36.6 C 107 H 17 119/73 97 Room Air PG Care Time/CCT Total # of Minutes Spent Total Time Spent with Patient: Total time spent is greater than 50% in coordination of care (as documented) at patient's floor/unit and/or counseling patient: Coding Level of Care Code 21917 SUB INP/OBS CARE 3/50MIN Diagnoses Squamous cell carcinoma of hypopharynx C13.9 Hypercalcemia E83.52 Dysphagia R13.10 Severe protein-calorie malnutrition E43
[2022-12-14] MEDS: TUBE FEEDING WATER FLUSH PEG SCH ×6 (00:35→20:27)
[2022-12-14] MEDS: oxyCODONE HCL SOLN 5 MG/5 ML UDC GT PRN ×4 (00:35→20:18)
[2022-12-14] MEDS: ATROPINE SULFATE 1% OP SOLN 5 ML BTL PO PRN ×4 (01:03→20:19)
[2022-12-14] MEDS: AMOXICILLIN/CLAVULANATE SUSP 250/62.5MG 5ML 75ML BTL PO SCH (05:32)
[2022-12-14] MEDS: CLOTRIMAZOLE/BETAMETHASONE CR 15 GM TUBE EXT SCH (08:06)
[2022-12-14] MEDS: POTASSIUM CHLORIDE 20 MEQ/15 ML UDC PO SCH (08:06)
[2022-12-14] MEDS: LANSOPRAZOLE 30 MG SOLTAB PEG SCH ×2 (08:06→20:21)
[2022-12-14] MEDS: THIAMINE HCL 100 MG TAB PEG SCH (08:06)
[2022-12-14] MEDS: NUTREN LIQD 2.0 1,000 ML BAG PEG SCH ×2 (08:11→12:22)
[2022-12-14 10:14] LABS: Hematocrit (blood only) 27.1 % (42.0-52.0); Hemoglobin 9.4 g/dl (14.0-18.0); Mean Corpuscular Hemoglobin 32.4 pg (25.0-34.0); Mean Corpuscular Hgb Conc 34.7 g/dL (32.0-36.0); Mean Corpuscular Volume 93.4 fL (80.0-100.0); Mean Platelet Volume 8.8 fL (9.4-12.4); Platelet Count 592 K/uL (130-400); RDW Coefficient of Variation 13.9 % (11.5-14.5); RDW Standard Deviation 47.6 fL (36.4-46.3)
[2022-12-14 10:32] LABS: Alanine Aminotransferase 23 U/L (7-52); Albumin Level 3.1 gm/dl (3.4-5.0); Alkaline Phosphatase 50 U/L (34-104); Anion Gap 3 (3-11); Aspartate Aminotransferase 18 U/L (13-39); BUN Creatinine Ratio 25.9 (10-20); Bilirubin Direct 0.1 mg/dl (0-0.2); Bilirubin,Total 0.4 mg/dl (0.2-1.0); Blood Urea Nitrogen 7 mg/dl (6-23); Carbon Dioxide 29 mmol/L (21-32); Chloride 98 mmol/L (98-107); Est GFR (African American) > 150.0 ml/min; Est GFR (Non-African American) > 150.0 ml/min; Glucose 100 mg/dl (70-99(Fasting)); Potassium 4.1 mmol/L (3.5-5.1); Sodium 130 mmol/L (136-145); Total Protein 6.9 gm/dl (6.0-8.3)
--- NOTE | 2022-12-14 14:00 | Surgery Progress Note ---
Date of Service December 14, 2022 Assessment & Plan (1) Gastrostomy tube in place: Plan: Asked to weigh in on patient's g-tube leakage. Apparently dressing had to be changed upwards of 7x already today and drainage has a purulent appearance to it. Surrounding G-tube leakage not noticeably worse during TEN bolus infusions. Currently G-tube is tightened to slightly passed the 2cm noé. Current RN is aware regarding frequent g-tube tightening every 1-2 hours and will educate oncoming staff to be diligent about doing the same. Continue dressing changes as needed if becomes saturated to help keep skin clean and prevent further damage Will continue to follow patient (2) Feeding tube dysfunction: Admission and Anticipated Discharge Date Admission Date: November 30, 2022 Subjective Patient in bed sitting up. Appears confused. Physical Exam Physical Exam: awake Gastrointestinal (Abdomen): g-tube dressing currently clean. Some red excoriation on abdomen surrounding g- tube. tube tightened to a little bit passed the 2cm noé. currently undergoing ten bolus Results & Data Vital Signs (Past 12 Hours) Vital Signs Temp Pulse Pulse Pulse Resp BP Pulse Ox 12/14/22 11:04 37.0 C 120 H 22 113/84 97 12/14/22 08:30 113 H 12/14/22 08:30 12/14/22 07:06 37.0 C 101 H 19 140/95 98 12/14/22 02:30 36.5 C 108 H 20 142/98 H 97 O2 Del Method 12/14/22 11:04 Room Air 12/14/22 08:30 12/14/22 08:30 Room Air 12/14/22 07:06 Room Air 12/14/22 02:30 Room Air PG Care Time/CCT Total # of Minutes Spent Total Time Spent with Patient: Total time spent is greater than 50% in coordination of care (as documented) at patient's floor/unit and/or counseling patient: Coding Level of Care Code 74558 Post Operative Follow-Up Diagnoses Gastrostomy tube in place Z93.1 Feeding tube dysfunction T85.598A
[2022-12-14] MEDS ORDERED: NUTREN LIQD 2.0 1,000 ML BAG PEG SCH (14:45)
--- NOTE | 2022-12-14 17:54 | XRay Report ---
KUB HISTORY: g tube check (gastrografin) COMPARISON: None. FINDINGS: C[employer] images demonstrate a gastrostomy tube within the left upper quadrant. No dilated loop s of bowel identified. A total of 50 cc of Optiray 320 were injected through the indwelling gastrosto my tube. Contrast is seen within the stomach and duodenum. No extravasation of contrast to suggest a leak or a malpositioned gastrostomy tube. No renal calculi. No ureteral calculi. No pneumoperitoneum or pneumatosis. IMPRESSION: The gastrostomy tube appears in good position. ACT 112: Negative or not required by law. Electronically signed by: Basim Orona M.D. 12/14/2022 5:52 PM
[2022-12-14] MEDS: ENOXAPARIN INJ 40 MG/0.4 ML SYR SQ SCH (20:27)
[2022-12-14] MEDS: LORazepam 2 MG/1 ML VIAL IV PRN (22:01)
--- NOTE | 2022-12-14 22:27 | Hospitalist Progress Note ---
Date of Service December 14, 2022 Assessment & Plan (1) Squamous cell carcinoma of hypopharynx: Plan: Acute recent diagnosis, with systemic complications now w/ G-tube but issues w/ leakage and both skin irritation but decreased delivery of hydration and nutrition, recent 10 day inpatient stay [facility] [place] dehydration and presented again dehydrated Has tolerated escalation of tube feeds and electrolytes replace with refeeding issues Gen surgery is evaluating his PEG tube daily and making adjustments. He had been requiring more dressing changes from his feeding. Nurses have been keeping tube bumper tight, but despite this, patient continues to have secretions today on 12/14. Concern that given his deterioration and worsenening delirium, it may be too hard to care for him at home, discussed with his mother over the phone that will discuss with his oncologist in AM regarding his prognosis. Will have palliative care help with decision making. Discussed possibility of adding metoclopramide to perhaps help with gastric empytying. However, as patient was refusing feedings in the evening, this will be ordered in the AM. It appears that his overall health is complicated by his poor nutritional status and weight loss as well as his intermittent confusion. It will be difficult to send him home in his current condition, unless, goal will become a comfort approach understanding that he will pass. Will current above treatment, in hopes patient's delirium improves and patient can be discharged home with plan to continue cancer treatment. If no improvement, LTAC may be an option. He still having less leakage of his feedings which helps his skin heal, seems to be mechanical issue of keeping bumper tight against skin to pull up internal balloon to keep tight heme oncology. has reviewed with ENT, is candidate for chemo/XRT. Due to delirium, patient unable to have radiation mapping completed. In regards to possible sepsis, patient the morning after admission sepsis ruled out continues on intravenous Zosyn to treat abdominal wall cellulitis. completed about 2 weeks of antibiotics. metabolic encephalopathy secondary to acurte on chronic hypercalcemia, Head CT without metastatic disease, Calcium is elevated 12/06, treated with ivf lasix and zolendronic acid,now resolved Acute REFEEDING SYNDROME finally seems stable, still mild electrolyte changes will continue to check electrolytes and replace accordingly Patient has had altered mental status. Did not cooperate for radiation mapping. Unsure if discharging patient home will be an adequate disposition for the patient as he has been confused. His elderly mother will be the one taking care of him. Updated his mother on 12/13 and 12/14 (2) Hypercalcemia: Plan: acute metabollic encephalopahty saline/lasix zolnedronic acid (3) Dysphagia: Plan: acute on chronic, severe Secondary to head neck cancer and hypopharyngeal mass able to have water and small sips did give one dose iv decadron in pm 12/05, was confused prior to this, oral atropine and prn racemic epi nebs Getting g tube feedings (4) Severe protein-calorie malnutrition: Plan: Secondary to cancer diagnosis and decreased oral intake patient continues to be significantly underweight with a BMI of 17 Admission and Anticipated Discharge Date Admission Date: November 30, 2022 Subjective Patient has become more confused today. Patient earlier had been allowing nurses to clean his dressing. Updated his mother on his clinical deterioration. At around 18:00, patient was becoming more agitated and refusing to connect his tube feeds. Review of Systems Review of Systems: Unobtainable due to cognitive status Physical Exam Physical Exam: general; chronically ill appearing male, cachectic/thin, sitting up in bed heent: trachea midline +cervical lymphadenopathy resp: no tachypnea, coarse breath sounds cv: rrr, tachy gi: +BS, distended, G-tube in place w/ surrounding erythema (decreased), continues to have secretions msk/neuro: follows commands, no slurred speech/facial droop, generalized weakness psych: alert/oriented, cooperative with exam Results & Data Results & Data Vital Signs (Past 12 Hours) Vital Signs Temp Pulse Pulse Resp BP Pulse Ox O2 Del Method 12/14/22 21:59 36.3 C L 111 H 18 130/91 98 Room Air 12/14/22 19:22 36.6 C 104 H 18 146/82 H 98 Room Air 12/14/22 15:07 37.1 C 101 H 20 127/71 99 Room Air 12/14/22 11:04 37.0 C 120 H 22 113/84 97 Room Air PG Care Time/CCT Total # of Minutes Spent Total Time Spent with Patient: Total time spent is greater than 50% in coordination of care (as documented) at patient's floor/unit and/or counseling patient: Coding Level of Care Code 18348 SUB INP/OBS CARE 3/50MIN Diagnoses Squamous cell carcinoma of hypopharynx C13.9 Hypercalcemia E83.52 Dysphagia R13.10 Severe protein-calorie malnutrition E43 Time Spent (min) 50
[2022-12-14] MEDS ORDERED: OLANZAPINE 2.5 MG TAB PO ONE (22:29)
[2022-12-15] MEDS ORDERED: OLANZapine 5 MG TABLET PO ONE (00:35)
[2022-12-15] MEDS: TUBE FEEDING WATER FLUSH PEG SCH (00:45)
[2022-12-15] MEDS: ATROPINE SULFATE 1% OP SOLN 5 ML BTL PO PRN (01:55)
[2022-12-15] MEDS ORDERED: LEVALBUTEROL 0.31MG/3 ML VIAL NEB STA (02:07)
[2022-12-15] MEDS ORDERED: SODIUM CHLOR 7% 4 ML NEB NEB ONE (02:09)
[2022-12-15] MEDS ORDERED: OLANZapine 10 MG/2.1 ML SDV IM STA (02:44)
--- NOTE | 2022-12-15 03:14 | Death Pronouncement Note ---
Date of Service December 15, 2022 Pronouncement Note Admission Date Admission Date: November 30, 2022 Date and Time of Date of : 12/15/22 Time of : 02:59 PCOD Preliminary cause of : Aspiration into respiratory tract Contributing Factors (1) Squamous cell carcinoma of hypopharynx: (2) Hypercalcemia: (3) Dysphagia: (4) Severe protein-calorie malnutrition: Summary Additional details: I was called to assess Edmund Valadez by Zoë Ibrahim on 12/15/2022. Upon entering the room, patient was found to be in terminal state. They were unresponsive to, and did not withdrawal from, verbal or tactile stimuli. They were unresponsive to corneal, pupillary, and oculocephalic reflexes. On cardiopulmonary exam, they were found to be without detectable carotid pulses, and without spontaneous heart tones or respirations. Time of was pronounced by me on 12/15/2022 at 02:59. Attending physician was notified. Next of kin (mother) was notified by me. Signed: Jamarcus Looney D.O. Additional Data Confirmation of : no pulse, no respirations, no heart sounds, pupils fixed and dilated and other Family: contacted Attending physician: Paul You
--- NOTE | 2022-12-15 07:11 | XRay Report ---
SINGLE VIEW CHEST CLINICAL HISTORY: Dyspnea. FINDINGS: An AP, portable, upright chest radiograph is compared to chest x-ray and chest CT dated 11/20. The cardiomediastinal silhouette is unremarkable. Chronic interstitial thickening is similar to previous. No airspace consolidation or large pleural effusion is identified. No pneumothorax is se en. The bony thorax is grossly intact. IMPRESSION: No acute cardiopulmonary abnormality is identified. ACT 112: Negative or not required by law. Electronically signed by: Pratik Prajapati M.D. 12/15/2022 7:09 AM
[2022-12-15] MEDS ORDERED: OLANZAPINE 2.5 MG TAB PO SCH (21:00)
== END 2022-12-15 05:34 | disposition expired | DRG 393 ==
LOC: 2W 12:01 → ED 12:01 → SUATTDRO 17:14 → 2W 20:28 → SUATTDRO 11-30 09:01 → 2E 12-05 19:39